=== PATIENT | male | born 1960 | race Caucasian/White ===

== ENCOUNTER 2025-01-07 01:29 | Inpatient (IN) | payer MEDICAID, SELFPAY ==
[2025-01-07] VITALS (26 sets, daily range): BP systolic 116–154; BP diastolic 68–95; PULSE 65–89; RESP 14–99; TEMP 36.3–37.1; O2SAT 89–100; BMI 23.5
--- NOTE | 2025-01-07 01:36 | PC.NURSE ---
FAMILY = AMINAH [phone]
--- NOTE | 2025-01-07 02:21 | XR_ITS ---
Examination: PA chest single view TECHNIQUE: Upright PA chest single view Date and time: January 07, 2025 0230 hours INDICATIONS: Nausea vomiting today. FINDINGS: No aspiration pneumonia Normal heart size No pulmonary edema. The osseous structures are intact IMPRESSION: Negative for aspiration pneumonia
--- NOTE | 2025-01-07 02:21 | EKG_ITS ---
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
--- NOTE | 2025-01-07 02:21 | XR_ITS ---
Examination: CT brain head without contrast. 2-D sagittal coronal reconstructions Date and time of exam:January 07, 2025, 0252 hours INDICATIONS: Vomiting nausea today with headache CTDI: vol (mGy):47.4 DLP: (mGycm):942. Technique: Multiple CT axial sections of the brain have been obtained, 5 mm slice thickness. Contrast has not been administered. 2-D sagittal, coronal reconstructions have been obtained Low dose protocols were performed. One or more of the following dose reduction techniques were used; automated exposure control, adjustment of the mA and/or KV according to patient size, use of iterative reconstruction technique. Findings: No significant ventricular enlargement. Intra-axial or extra-axial hemorrhage density is not seen. No mass effect or midline shift Basal cisterns are not remarkable. Fourth ventricle is midline. Cranial vault intact. Impression: Negative for acute hemorrhage, mass effect or midline shift Mild chronic ethmoid sinusitis and maxillary sinusitis
--- NOTE | 2025-01-07 02:22 | PD.EDRME ---
Rapid Medical Screening Exam RME Arrival date/time: 01/07/25 01:29 64M with unknown PMH presents to ED with N/V and reduced intake. Patient does not know why he's here and is not responding to questions. Patient is covered in vomitus. Chief Complaint: Nausea/Vomiting/Diarrhea Vital signs: Vital Signs Temperature 98.4 F 01/07/25 02:13 Pulse Rate 79 01/07/25 02:13 Respiratory Rate 18 01/07/25 02:13 Blood Pressure 153/85 H 01/07/25 02:13 Pulse Oximetry (%) 97 01/07/25 02:13 Oxygen Delivery Method Room Air 01/07/25 02:13
[2025-01-07] MEDS: ONDANSETRON INJ 2 MG/ML INJ 2 ML 4 MG IV (03:04)
--- NOTE | 2025-01-07 03:20 | PRELIM_ITS ---
CT scan of the head without intravenous contrast (axial sections with sagittal and coronal reformats) January 07, 2025 0243 hours Clinical history: N/V Comparison: No prior study is available for comparison. Findings: There is no evidence of intracranial hemorrhage, mass effect or midline shift. There are periventricular white matter hypodensities, compatible with chronic small vessel ischemia. There is mild volume loss. The calvarium is unremarkable. There are small retention cysts or polyps in bilateral maxillary and left ethmoid sinuses. There is mild mucosal thickening in bilateral maxillary sinuses. The mastoid air cells and the other visualized paranasal sinuses are clear. Impression: No evidence of intracranial hemorrhage, mass effect or midline shift. Periventricular chronic small vessel ischemia and volume loss. Other findings as described above. Report Electronically Signed By: Alex Burton 01/07/2025 3:19:38 AM [EST]
[2025-01-07 03:28] LABS: Collection Type, Urine Clean Catch; Squamous Epithelial Cell,Urine 0 /hpf (0-5)
--- NOTE | 2025-01-07 03:28 | PD.EDNV ---
Nausea/Vomit./Diarrhea-RME/HPI General Chief complaint: Nausea/Vomiting/Diarrhea Stated complaint: VOMITING Time Seen by Provider: 01/07/25 03:31 Arrival date/time: 01/07/25 01:29 RME / HPI RME / HPI Narrative: 01/07/25 01:29 64M with unknown PMH presents to ED with N/V and reduced intake. Patient does not know why he's here and is not responding to questions. Patient is covered in vomitus. Dr. Nix?s Main ED Evaluation: 64yo male presents to the ED for N/V. When asked, patient does not know why he is here is not responding to any questions. Per nursing staff, patient was covered in emesis on ED arrival. Full ROS is unobtainable due to the patient not answering any questions. Related Data Allergies Allergy/AdvReac Type Severity Reaction Status Date / Time No Known Allergies Allergy Verified 01/07/25 01:33 Review of Systems Review of Systems ROS Unobtainable: other (unobtainable due to the patient not answering questions) ED Exam Narrative Physical exam: GENERAL APPEARANCE: confused, answers limited questions, well-developed, well-nourished, no acute distress VITALS: All vitals were reviewed and the pulse ox is 100% on room air, which is normal according to my interpretation. HEENT: Normocephalic, atraumatic; pupils equal, round, reactive to light; EOMI; mucous membranes pink, moist; oropharynx clear NECK: Supple LUNGS: CTABL; no wheezes, no rales, no rhonchi HEART: Regular rate, regular rhythm; normal S1, S2; no murmurs ABDOMEN: non distended; normal BS; soft, no tenderness, no guarding, no rebound; no masses, no organomegaly, no hernia BACK: no CVA tenderness EXTREMITIES: atraumatic; no edema NEUROLOGIC: awake, alert, confused; cranial nerves II-XII grossly intact; no focal sensory or motor deficits PSYCHIATRIC: appropriate mood and affect SKIN: warm, dry, normal color; no rashes Course Quality Measures none Orders Category Date Time Status Blood glucose [Bedside Blood Glucose] NOW Care 01/07/25 02:22 Active EKG (ED ONLY) *Do not use* NOW Care 01/07/25 02:21 Completed Insert IV NOW Care 01/07/25 02:[address] head/brain wo con Stat Exams 01/07/25 02:21 Taken EKG (ED Only) Stat Exams 01/07/25 02:21 Draft XR chest 1V portable Stat Exams 01/07/25 02:21 Taken Alcohol, Blood Medical Stat Lab 01/07/25 03:56 Completed CBC Stat Lab 01/07/25 02:58 Completed Comprehensive Metabolic Panel Stat Lab 01/07/25 02:58 Completed Drug Screen,Urine Stat Lab 01/07/25 03:15 Completed Lactate (Lactic Acid) Stat Lab 01/07/25 03:56 Completed Lipase Stat Lab 01/07/25 02:58 Completed Magnesium Stat Lab 01/07/25 02:58 Completed Troponin I Stat Lab 01/07/25 02:58 Completed Urinalysis Stat Lab 01/07/25 03:15 Completed Ondansetron Inj [Zofran Inj] Med 01/07/25 02:23 Discontinued 4 mg IV X1 ONE Vital Signs Vital signs: Vital Signs Temperature 98.4 F 01/07/25 02:13 Pulse Rate 79 01/07/25 02:13 Respiratory Rate 18 01/07/25 02:13 Blood Pressure 153/85 H 01/07/25 02:13 Pulse Oximetry (%) 97 01/07/25 02:13 Oxygen Delivery Method Room Air 01/07/25 02:13 Nausea/Vomiting/Diarrhea MDM Narrative MDM Narrative:: Scribe Attestation: 01/07/25 Joaquina Rodríguez am scribing for and in the presence of Dr. Nix. Patient data External records reviewed:: [facility] previous records (Per chart review, patient has no previous ED visits or admissions to this facility.) Clinical information provided by:: none (nursing staff) Social determinants that could affect healthcare access:: none Patient has the following chronic illnesses:: unknown How is presenting disease/condition affected by chronic disease/condition?: no chronic disease Evaluation data The following diagnostics were reviewed and interpreted by me:: lab results, radiology exam(s) and EKG tracing(s) Lab and/or radiology exams considered but not ordered:: none Interpretation Summary: WBC 13.5, Sodium 112, Chloride 80, Magnesium 0.9, Troponin normal, UA unremarkable, UDS negative. CXR shows left upper lobe infiltrate, no cardiomegaly, no pneumothorax, according to my interpretation. EKG done at 0227, sinus rhythm, rate of 76, artifact, Q waves in anterior leads, poor R wave progression, no acute ischemic changes, according to my interpretation. Telerad Preliminary Report Draft Patient: JAMAR COLLINS Record#: [id number] Birthdate: 1960 Age/Sex: 64 / M Location: [facility] Attending Dr: Ordering Physician: Date of Service: Procedure(s): Accession Number(s): cc: ~ CT scan of the head without intravenous contrast (axial sections with sagittal and coronal reformats) January 07, 2025 0243 hours Clinical history: N/V Comparison: No prior study is available for comparison. Findings: There is no evidence of intracranial hemorrhage, mass effect or midline shift. There are periventricular white matter hypodensities, compatible with chronic small vessel ischemia. There is mild volume loss. The calvarium is unremarkable. There are small retention cysts or polyps in bilateral maxillary and left ethmoid sinuses. There is mild mucosal thickening in bilateral maxillary sinuses. The mastoid air cells and the other visualized paranasal sinuses are clear. Impression: No evidence of intracranial hemorrhage, mass effect or midline shift. Periventricular chronic small vessel ischemia and volume loss. Other findings as described above. Report Electronically Signed By: Alex Burton 01/07/2025 3:19:38 AM Medications / Prescriptions Medications / Prescriptions considered but not ordered:: none Medication administrations:: Medication Administration History Discontinued Medications Ondansetron HCl (Ondansetron Inj 2 Mg/Ml Inj 2 Ml) 4 mg IV X1 ONE; Protocol Stop: 01/07/25 02:24 Last Admin: 01/07/25 03:04 Dose: 4 mg Documented By: KRISTINA see above Consultations Consultation(s) initiated? (list below): Yes Consultation #1 (Physician, Specialty, Details): Discussed case with Dr. Juarez, ICU resident from Hospitalist service regarding admission. Discussed patients ED course, exam findings, labs, and radiology results. The Hospitalist agrees to accept the patient for admission. Time: 04:23 Diagnosis Nausea Differential Diagnosis: dehydration and other (CVA, TIA, metabolic encephalopathy) Most likely diagnosis given after review of the tests above:: hyponatremia, AMS, hypomagnesemia, vomiting Admission Indicated Admission indicated?: indicated Admission Request Was there a request for admission?: Yes Admission Attestation Admission request attestation: Discussed case with [] from Hospitalist service regarding admission. Discussed patients ED course, exam findings, labs, and radiology results. The Hospitalist [agrees,declines] to accept the patient for admission. Disposition Plan Disposition Plan: Admit Critical Care Time Critical Care Time Critical Care Time: Yes Total Critical Care Time (min.): 35 Attestation: The high probability of sudden, clinically significant deterioration in the patient?s condition required the highest level of my preparedness to intervene urgently. The services I provided to this patient were to treat and/or prevent clinically significant deterioration. Services included the following: chart data review, reviewing nursing notes and/or old charts, documentation time, marketing consultant collaboration regarding findings and treatment options, medication orders and management, direct patient care, vital sign assessments and ordering, interpreting and reviewing diagnostic studies and lab tests. Aggregate critical care time includes only time during which I was engaged in work directly related to the patient?s care, as described above, whether at bedside or elsewhere in the Emergency Department. It did not include time spent performing other reported procedures or the services of residents, students, nurses or physician assistants. Discharge Plan Plan Patient Disposition: Admit Acute Care w/in Hospital Problem List Clinical Impression: AMS (altered mental status), Hyponatremia, Hypomagnesemia, Vomiting Patient/Caregiver Discharge Instructions Print Language: Maori Stand Alone Forms: Leann Award Info., Patient Portal Info Letter
[2025-01-07 03:40] LABS: Bilirubin,Urine Negative (Negative); Blood,Urine Negative (Negative); Clarity,Urine Clear (Clear/Hazy); Color,Urine Lt-Yellow (Lt Yel-Yel); Glucose, Urine 4+ (Negative); Ketones,Urine 1+ (Negative); Leukocyte Esterase,Urine Negative (Negative); Nitrite,Urine Negative (Negative); PH,Urine 6.5 (5.0-7.0); Protein,Urine Negative (Neg - Trace); RBC,Urine 2 /hpf (0-3); Specific Gravity,Urine 1.009 (1.001-1.035); Urobilinogen,Urine Negative mg/dL (0.0-1.0); WBC,Urine < 1 /hpf (0-5)
[2025-01-07 03:45] LABS: Alanine Aminotransferase 16 U/L (10-49); Albumin, Serum 4.3 gm/dL (3.4-4.8); Albumin/Globulin Ratio 1.9 (1.2-2.2); Alkaline Phosphatase 52 U/L (46-116); Anion Gap 12 (7-16); Aspartate Amino Transferase 23 U/L (0-34); BUN/Creatinine Ratio 6 Ratio (12-20); Bilirubin,Total 1.8 mg/dL (0.3-1.2); Blood Urea Nitrogen 7 mg/dL (9-23); Calcium 8.8 mg/dL (8.3-10.6); Calcium (Corrected) 8.8 mg/dL (8.5-10.1); Carbon Dioxide 20.5 mMol/L (20.0-31.0); Chloride 80 mMol/L (98-107); Creatinine (Component) 1.1 mg/dL (0.6-1.3); Estimated Creatinine Clearance 65.1 mL/min (>60); Globulin 2.3 gm/dL (2.3-3.5); Glucose 111 mg/dL (74-106); Lipase 30 U/L (12-53); Osmolality,Calculated 226 (275-295); Potassium 4.0 mMol/L (3.4-5.1); Total Protein 6.6 gm/dL (5.7-8.2); Troponin I < 0.020 ng/mL (0.0-0.045); eGFR > 60 See Note
[2025-01-07 03:47] LABS: Amphetamine/Methamp Scrn,U Negative (Negative); Barbiturate Screen,Urine Negative (Negative); Benzodiazepines Screen,Urine Negative (Negative); Benzoylecgonine Screen, Ur Negative (Negative); Fentanyl Screen,Urine Negative (Negative); Opiate Screen,Urine Negative (Negative); THC Screen,Urine Negative (Negative)
[2025-01-07 03:59] LABS: Magnesium 0.9 mg/dL (1.6-2.6); Sodium 112 mMol/L (136-145)
[2025-01-07 04:07] LABS: Lactate (Lactic Acid) 1.4 mMol/L (0.4-2.0)
[2025-01-07 04:23] LABS: Basophils # (Auto) 0.0 Thou/mm3 (0.0-0.2); Basophils % (Auto) 0 % (0-2.5); Eosinophils # (Auto) 0.1 Thou/mm3 (0.0-0.5); Eosinophils % (Auto) 1 % (0-10); Hematocrit 37.3 % (41.0-53.0); Hemoglobin 14.1 g/dL (13.5-16.0); Immature Granulocytes Auto 0.08 Thou/mm3 (0.00-0.00); Lymphocytes # (Auto) 1.9 Thou/mm3 (1.0-4.8); Lymphocytes % (Auto) 14 % (10-50); Mean Corpuscular HGB Conc 37.8 g/dl (31.0-37.0); Mean Corpuscular Hemoglobin 34.1 pg (25.0-35.0); Mean Corpuscular Volume 90 fL (80-100); Monocytes # (Auto) 0.7 Thou/mm3 (0.0-0.8); Monocytes % (Auto) 5 % (0-12); Neutrophils # (Auto) 10.7 Thou/mm3 (1.8-7.7); Neutrophils % (Auto) 79 % (37-80); Nucleated Red Blood Cell # 0.00 Thou/mm3 (0.00-0.00); Nucleated Red Blood Cell % 0 /100 WBC (0); Platelet Count 219 Thou/mm3 (140-440); RDW Standard Deviation 40.4 fL (35.1-43.9); Red Blood Count 4.13 Miln/mm3 (4.50-5.90); White Blood Count 13.5 Thou/mm3 (3.8-10.6)
[2025-01-07 04:48] LABS: Alcohol, Blood Medical < 3.0 mg/dL (0-10.0)
--- NOTE | 2025-01-07 04:59 | XR_ITS ---
Examination: Abdomen sonogram, Limited Date and time of exam: January 07, 2025 0842 hours INDICATIONS: Elevated total bilirubin on laboratory examination today Technique: Real-time roa scale transabdominal sonographic images of the upper abdomen obtained. Findings: Normal gallbladder. Normal common bile duct 0.3 cm Pancreatic head 2.3 cm Liver 16.4 cm no liver lesions Normal hepatopedal portal venous flow Patent IVC IMPRESSION: Normal gallbladder Normal common bile duct
--- NOTE | 2025-01-07 05:11 | XR_ITS ---
Examination: Abdomen AP single view Technique: AP portable supine abdomen, single view Exam date and time: 2024, 0515 hours INDICATIONS: Nausea vomiting and elevated bilirubin on laboratory examination today. FINDINGS: Moderate stool throughout the colon. Moderately air distended stomach No free air The osseous structures are intact Impression : Moderate stool throughout the colon
--- NOTE | 2025-01-07 05:12 | PD.RESHP ---
Documentation for date of: 01/07/25 [facility] History of Present Illness Chief complaint: vomiting History of present illness: Patient is 64 years old male with unknown past medical history presented to the ED due to nausea and vomiting. Patient was brought by unknown person and is very confused and nonverbal, no other information is available. Per emergency room note patient presented covered with vomitus, was confused and nonverbal since initial presentation. He is minimally verbal and responds yes or no to some questions. Patient is able to tell his name but otherwise is disoriented. He appears to be well-groomed and does not appear to be homeless. On admission his blood pressure 153/85, pulse 79, respirations 18, temperature 98.4 ?F, oxygen saturation 97% on room air initial labs showed WBC 13.5, sodium 112, potassium 4, chloride 80, creatinine 1.1 with unknown baseline, glucose 111, calculated osmolarity 226, lactic acid 1.4, magnesium 0.9, total bilirubin 1.8, troponin negative, lipase 30. Urinalysis showed glucose 4+, ketones 1+. Toxicology Is Negative. Head CT showed periventricular chronic small vessel ischemia and volume loss, no mass effect or hemorrhage. EKG showed sinus rhythm. Chest x-ray pending. He was given Zofran x 1 in the ED. Patient was admitted to ICU for further management of severe symptomatic hyponatremia. PMH: unknown. PSH: unknown. SH: unknown. FH: unknown. Allergies: unknown. Medications: unknown. Review of Systems Review of Systems ROS Unobtainable: unobtainable due to mental status Exam Vital Signs Temp Pulse Resp BP Pulse Ox O2 Del Method 97.3 F 69 22 H 137/70 H 99 Room Air 01/07/25 05:00 01/07/25 05:00 01/07/25 05:00 01/07/25 05:00 01/07/25 05:00 01/07/25 05:00 Narrative Exam Gen: Well-developed and well-nourished confused male. HEENT: NCAT, PERRLA, EOMI, MMM, anicteric conjunctivae. CVS: normal S1 and S2. RRR. No M/R/G. Resp: Decreased breath sounds B/L bases. No rhonchi, rales, crackles or wheezing. Abd: soft, non-tender, non-distended. BS+ in all 4 quadrants. Hiccups noted. MSK: Able to move all 4 extremities. Trace pitting edema BLE. Skin appears pale. Neuro: Limited exam due to mental status. Results: Labs 01/07/25 02:58 01/07/25 02:58 Labs: Short CBC 01/07/25 Range/Units 02:58 WBC 13.5 H (3.8-10.6) Thou/mm3 Hgb 14.1 (13.5-16.0) g/dL Hct 37.3 L (41.0-53.0) % Plt Count 219 (140-440) Thou/mm3 BMP 01/07/25 02:58 Sodium 112 L* Potassium 4.0 Chloride 80 L Carbon Dioxide 20.5 BUN 7 L Creatinine 1.1 Glucose 111 H Calcium 8.8 Cardiac Enzymes 01/07/25 Range/Units 02:58 Troponin I < 0.020 (0.0-0.045) ng/mL Liver Function 01/07/25 Range/Units 02:58 Total Bilirubin 1.8 H (0.3-1.2) mg/dL AST 23 (0-34) U/L ALT 16 (10-49) U/L Alkaline Phosphatase 52 (46-116) U/L Albumin 4.3 (3.4-4.8) gm/dL Urine 01/07/25 Range/Units 03:15 Urine Color Lt-Yellow (Lt Yel-Yel) Urine Clarity Clear (Clear/Hazy) Urine pH 6.5 (5.0-7.0) Ur Specific Mccloud 1.009 (1.001-1.035) Urine Protein Negative (Neg - Trace) Urine Glucose (UA) 4+ A (Negative) Quality Measures Quality Measures VTE prophylaxis Medications Home Medications and Allergies Home Medications ?Medication ?Instructions ?Recorded ?Confirmed ?Type atorvastatin 20 mg tablet 20 mg PO .QD 01/07/25 01/07/25 History dapagliflozin propanediol 10 mg 10 mg PO .QD 01/07/25 01/07/25 History tablet (Farxiga) ferrous sulfate 325 mg (65 mg 325 mg PO .QOD 01/07/25 01/07/25 History iron) tablet (FeroSul) finasteride 5 mg tablet 5 mg PO .QOD 01/07/25 01/07/25 History finerenone 10 mg tablet (Kerendia) 10 mg PO .QOD 01/07/25 01/07/25 History lisinopril 20 mg tablet 20 mg PO .QD 01/07/25 01/07/25 History metformin 500 mg tablet 500 mg PO .COMPLEX 01/07/25 01/07/25 History olanzapine 10 mg tablet 10 mg PO HS 01/07/25 01/07/25 History oxybutynin chloride 2.5 mg tablet 2.5 mg PO BID 01/07/25 01/07/25 History tamsulosin 0.4 mg capsule 0.4 mg PO Q24H 01/07/25 01/07/25 History Allergies Allergy/AdvReac Type Severity Reaction Status Date / Time No Known Allergies Allergy Verified 01/07/25 01:33 Visit Medications Acetaminophen (Acetaminophen Supp 650 Mg Supp) 650 mg NH Q6HR PRN PRN Reason: [id number] Stop: 02/06/25 04:54 Heparin Sodium (Porcine) (Heparin Sod Inj 5000 Unit/Ml Vial) 5,000 unit SC Q12HR ON LICENSE OF [facility] Stop: 01/21/25 08:59 Magnesium Sulfate (Magnesium Sulfate Ivpb) 4 gm in 50 mls @ 12.5 mls/hr IV X1 ONE Stop: 01/07/25 08:57 Sodium Chloride 500 ml/ IV (Miscellaneous Supplies) 500 mls @ 30 mls/hr IV X1 ONE Stop: 01/07/25 21:34 Ceftriaxone Sodium/Dextrose (Rocephin/D5w 1gm Iv Premix) 1 gm in 50 mls @ 100 mls/hr IV QDAY LEIGAH Stop: 01/14/25 05:04 Metronidazole (Flagyl 500 Mg Iv) 500 mg in 100 mls @ 200 mls/hr IV Q8HR LEIGHA Stop: 01/14/25 05:04 Metronidazole (Flagyl 500 Mg Iv) 500 mg in 100 mls @ 200 mls/hr IV X1 ONE Stop: 01/07/25 05:44 Ondansetron HCl (Ondansetron Inj 2 Mg/Ml Inj 2 Ml) 4 mg IVP Q6H PRN; Protocol PRN Reason: NAUSEA OR VOMITING Stop: 02/06/25 04:54 Discontinued Medications Ondansetron HCl (Ondansetron Inj 2 Mg/Ml Inj 2 Ml) 4 mg IV X1 ONE; Protocol Stop: 01/07/25 02:24 Last Admin: 01/07/25 03:04 Dose: 4 mg Assessment & Plan Plan Patient is 64 years old male with unknown past medical history presented to the ED due to nausea and vomiting, found to have sodium 112, and was admitted to ICU for further management of severe symptomatic hyponatremia. Neuro: #Acute encephalopathy. Patient presented with altered mental status and significant confusion, baseline is unknown as no medical history is available. No visible trauma to his head. CT scan of the head showed periventricular chronic small vessel ischemia and volume loss, no mass effect or hemorrhage. At this moment his encephalopathy will be treated as secondary to severe hyponatremia. Plan: -Neurochecks every hour. -Continue following sodium. Cardiovascular: No active problem, unknown medical history. Respiratory: No active problem, unknown medical history. Gastrointestinal: #Nausea and vomiting, controlled. Patient presented to the ED covered with vomitus, was given Zofran x 1 IV with resolution of symptoms. Plan: -Zofran as needed ordered. -Aspiration precautions. #Elevated total bilirubin. On admission total bilirubin 1.8, patient does not endorse abdominal pain and abdomen is nontender on physical exam. Other LFTs are within normal limit. Medical history is unknown. Plan: -Direct bilirubin ordered. -Liver ultrasound and KUB ordered. Renal: #Severe symptomatic hypoosmolar hypochloremic hyponatremia of unknown duration. Patient presented with sodium 112, potassium 4, chloride 80, calculated osmolarity 226. Unknown duration of confusion, no prior labs on file. Will treat him as chronic symptomatic hyponatremia. Plan: -Started on hypertonic saline 3% 30 cc/h with goal to achieve 24 hours increase in serum sodium of 4 to 6 mEq. -Urine electrolytes ordered. -Nephrology consult ordered. -Sodium check every 3 hours. #Severe hypomagnesemia. On admission magnesium 0.9. Plan: -Ordered 4 g of magnesium IV. Endocrine: No active problem, unknown medical history. Infectious Disease: #Concern for possible aspiration. Patient presented to the ED covered in emesis, his WBCs were 13.5, chest x-ray pending. Plan: -Blood cultures taken. -Started on ceftriaxone and metronidazole empirically. Hematology/Oncology: #Leukocytosis. As above, follow-up with daily CBC. Diet: NPO. DVT prophylaxis: Heparin. GI prophylaxis: Famotidine. Code status: FULL CODE (baseline). Disposition: ICU. Plan of care discussed with attending Dr. Robles. Miguel Juarez MD, PGY 3. Disclaimer: This note was dictated by speech recognition. Minor errors in cardiac nurse specialist may be present due to voice recognition software. Attending Provider Attestation/Addendum I attest that I was physically present for the evaluation, physical examination, lab and imaging review of the patient with the residents. I discussed the case with the residents and agree with the findings and plans of care as documented above. After examination of the patient and review of the clinical data I feel that this patient needs admission to the hospital for further treatment/evaluation. Patient is a 64 years old male with unknown past medical history, was brought in to the ED with complaint of nausea and vomiting. Patient is unable to provide any history, no family or friend at bedside to provide information. As per ED, patient was covered with vomitus on presentation. At bedside, he is alert and awake, but confused only able to answer simple questions and follows simple commands both inconsistently. He is unable to answer any orientation question. GCS is 14. Abdomen is soft, no grimacing or tenderness noted. He is moving all his limbs. In the ED, found to have blood pressure of 153/85, rest of the vitals were within normal limits. Patient is able to protect his airway. WBC count is 13.5, sodium 112, chloride 80, osmolality 226, magnesium 0.9, bilirubin 1.8. Urinalysis showed 4+ glucose, 1+ ketones. Toxicology is negative. EKG shows sinus rhythm. Chest x-ray shows possible left-sided infiltrate. Head CT was done, preliminary reading shows no acute intracranial bleeding, mass effect or midline shift. Only shows periventricular chronic small vessel ischemia and volume loss. We will admit the patient for management of acute encephalopathy, likely secondary to severe symptomatic hyponatremia. We will start him on hypertonic saline with every 3 hours sodium checks, frequent neurochecks. We will obtain nephrology consult. We will keep patient n.p.o. for now until he passes swallow evaluation. Since patient had vomiting while confused, concern for aspiration, we will start him on IV Rocephin and metronidazole. Noted to have mild elevation in bilirubin, 1.8, does not have abdominal tenderness on exam, we will follow-up with liver panel and will obtain liver ultrasound. We will also obtain x-ray KUB to further investigate his causes for vomiting. Repleted 4 g of magnesium. Total time spent in critical care of the patient: 37 minutes Danay Robles MD
[2025-01-07] MEDS: Magnesium Sulfate 4 GM Ivpb 4 GM/50 ML BAG IV (05:24)
[2025-01-07] MEDS: cefTRIAXone/D5w 1gm IV premix 1 GM/50 ML BAG IV (05:24)
[2025-01-07] MEDS: SODIUM CHLORIDE 3%(Hypertonic) 500 ML in PRE-MIXED 1 BAG 30 ML IV ×2 (05:25→09:01)
[2025-01-07] MEDS: metroNIDAZOLE/NS 500 MG IVPB 500 MG/100 ML BAG 200 MG IV (05:40)
[2025-01-07 05:41] LABS: Base Excess, Venous -1 (-3-3); O2 Saturation, Venous 100 % (96-97); PCO2, Venous 27 mmHg (36-56); PO2, Venous 124 mmHg (15-58); pH, Venous 7.49 (7.33-7.66)
[2025-01-07 05:52] LABS: Beta Hydroxybutyrate 1.2 mmol/L (<0.6)
[2025-01-07 05:54] LABS: Chloride,Urine Random 49.6 mMol/L (55.0-125.0); Creatinine,Random Urine 43 mg/dL (30-125); Potassium,Urine Random 27 mMol/L (12-62); Protein Total, Random Urine 8 mg/dL (1-14); Sodium,Urine Random 47.3 mMol/L (20.0-110.0)
[2025-01-07 05:56] LABS: Basophils # (Auto) 0.0 Thou/mm3 (0.0-0.2); Basophils % (Auto) 0 % (0-2.5); Eosinophils # (Auto) 0.1 Thou/mm3 (0.0-0.5); Eosinophils % (Auto) 1 % (0-10); Hematocrit 33.9 % (41.0-53.0); Hemoglobin 13.0 g/dL (13.5-16.0); Immature Granulocytes Auto 0.10 Thou/mm3 (0.00-0.00); Lymphocytes # (Auto) 1.5 Thou/mm3 (1.0-4.8); Lymphocytes % (Auto) 12 % (10-50); Mean Corpuscular HGB Conc 38.3 g/dl (31.0-37.0); Mean Corpuscular Hemoglobin 34.0 pg (25.0-35.0); Mean Corpuscular Volume 89 fL (80-100); Monocytes # (Auto) 0.6 Thou/mm3 (0.0-0.8); Monocytes % (Auto) 5 % (0-12); Neutrophils # (Auto) 9.8 Thou/mm3 (1.8-7.7); Neutrophils % (Auto) 82 % (37-80); Nucleated Red Blood Cell # 0.00 Thou/mm3 (0.00-0.00); Nucleated Red Blood Cell % 0 /100 WBC (0); Platelet Count 218 Thou/mm3 (140-440); RDW Standard Deviation 38.2 fL (35.1-43.9); Red Blood Count 3.82 Miln/mm3 (4.50-5.90); White Blood Count 12.0 Thou/mm3 (3.8-10.6)
--- NOTE | 2025-01-07 05:58 | PC.NURSE ---
SPOKE TO AMINAH VIA TELEPHONE, WHO STATES SHE IS THE PTS COUSIN. PER AMINAH PT IS NORMALLY ABLE TO COMPLETE ALL ADLS, IS A/OX3, GCS15. PER AMINAH PT BEGAN TO DEVELOP N/V AND LOW APPETITE SINCE YEST MORNING. AMINAH STATED PT THEN APPEARED CONFUSED TO HER LATER THAT EVENING AND THAT IS WHEN SHE DECIDED TO BRING HIM INTO THE ER. PT PRESENTED TO TO ER CONFUSED. UNABLE TO ANSWER ANY QUESTIONS, BUT FOLLOWS COMMANDS. PT PRESENTS A/OX1 GCS 14. ALL RESPIRATIONS EVEN AND UNLABORED. VS. PT CARE GOING
--- NOTE | 2025-01-07 06:08 | EVENTNT_ITS ---
Documentation for date of: 01/07/25 Event Note Event Note: Hospital received a call from a person named Radha who claimed to be his cousin. She reports that she drove him to the emergency room earlier today. She reports he lives with her. She said that patient started becoming very slow over the last several days and became very confused yesterday morning, also developed nausea and vomiting. He is usually alert and oriented, ambulates himself. She reported that he has some kidney problems and is followed by Dr. Driver who recommended decrease sodium and sugar intake which was followed strictly. Patient has history of hypertension and takes 1 unknown medication, diabetes and takes metformin and Farxiga, and GERD and is taking omeprazole. He is active tobacco smoker, does not use drugs or drink alcohol. Her information was added to file. She also denied him being recently sick, denied fever, chills. His hospital chart was found and was merged. Plan of care discussed with attending Dr. Robles. Miguel Juarez MD, PGY 3. Disclaimer: This note was dictated by speech recognition. Minor errors in cook fish and chips may be present due to voice recognition software.
[2025-01-07 06:12] LABS: Glucose Estimated Average 114 mg/dL (80-131); Hemoglobin A1C 5.6 % Hgb (4.8-6.0)
[2025-01-07 06:13] LABS: Alanine Aminotransferase 13 U/L (10-49); Albumin, Serum 3.8 gm/dL (3.4-4.8); Albumin/Globulin Ratio 2.4 (1.2-2.2); Alkaline Phosphatase 45 U/L (46-116); Anion Gap 11 (7-16); Aspartate Amino Transferase 25 U/L (0-34); BUN/Creatinine Ratio 7 Ratio (12-20); Bilirubin,Direct 0.6 mg/dL (0.0-0.3); Bilirubin,Total 1.8 mg/dL (0.3-1.2); Blood Urea Nitrogen 6 mg/dL (9-23); Calcium 8.7 mg/dL (8.3-10.6); Calcium (Corrected) 8.9 mg/dL (8.5-10.1); Carbon Dioxide 19.4 mMol/L (20.0-31.0); Chloride 80 mMol/L (98-107); Creatinine (Component) 0.9 mg/dL (0.6-1.3); Estimated Creatinine Clearance 79.6 mL/min (>60); Globulin 1.6 gm/dL (2.3-3.5); Glucose 91 mg/dL (74-106); Magnesium 1.3 mg/dL (1.6-2.6); Osmolality,Calculated 221 (275-295); Phosphorous 2.6 mg/dL (2.4-5.1); Potassium 3.8 mMol/L (3.4-5.1); Thyroid Stimulating Hormone 1.17 uIU/mL (0.55-4.78); Total Protein 5.4 gm/dL (5.7-8.2); eGFR > 60 See Note
[2025-01-07 06:14] LABS: Sodium 110 mMol/L (136-145)
[2025-01-07] MEDS: SODIUM CHLORIDE 3%(Hypertonic) 500 ML in PRE-MIXED 1 BAG 40 ML IV (07:55)
[2025-01-07 08:37] LABS: Uric Acid 2.8 mg/dL (3.7-9.2)
[2025-01-07 08:39] LABS: Sodium 114 mMol/L (136-145)
--- NOTE | 2025-01-07 08:40 | XR_ITS ---
Examination: AP chest single view Technique one AP portable upright chest single view Date and time: January 07, 2025 0851 hours INDICATIONS: Post orogastric tube placement FINDINGS: Orogastric tube tip in the stomach satisfactory position. Normal heart size No lobar pneumonia IMPRESSION: Orogastric tube in the stomach satisfactory position
[2025-01-07 09:25] LABS: OBS Card Expiration Date 12/26; OBS Card Lot # 20152; OBS Developer Expiration Date 06/26; OBS Developer Lot # 75027G; OBS Performed By OVERJ; OBS QC OK? Yes; Occult Blood, Stool Positive (Negative)
--- NOTE | 2025-01-07 10:09 | XR_ITS ---
Examination: CT chest, without intravenous contrast. Sagittal and coronal 2-D reconstructions. Exam date and time: January 07, 2025 1427 hours INDICATIONS: Chest CT April 25, 2023 5 mm stellate pulmonary nodule right middle lobe CTDI:vol (mGy) 9.29 DLP: (mGycm) 338 Technique: Multiple 3.0 mm axial sections of the chest to been obtained. Bone and lung density settings are obtained. Sagittal and coronal 2-D reconstructions have been obtained. Low dose protocols were performed. One or more of the following dose reduction techniques were used; automated exposure control, adjustment of the mA and/or KV according to patient size, use of iterative reconstruction technique. Findings: Fluid distended esophagus No thoracic degenerative aneurysm dilatation. Pulmonary artery segments are not enlarged. No current pulmonary nodules No pneumonia or pulmonary edema Orogastric tube in the stomach Kidneys partially visualized no hydronephrosis Contracted gallbladder Severe osteopenia with kyphosis dorsal spine IMPRESSION: No current pulmonary nodules identified Esophagus is fluid distended
[2025-01-07] MEDS: HEPARIN SOD INJ 5000 UNIT/ML VIAL SC (10:16)
[2025-01-07] MEDS: FAMOTIDINE INJ 10 MG/ML VIAL 2 ML 20 MG IVP (10:18)
--- NOTE | 2025-01-07 10:44 | ESCONSULT_ITS ---
HPI Data of Consult Consult date: 01/07/25 Requesting Physician: Danay Robles MD Admitting Provider: Danay Robles MD Attending Provider: Danay Robles MD Primary Care Provider: Physician No Primary/Family Consult Narrative Reason for consult: hyponatremia History of present illness: Juan M Jasso is a 64 year old male with past medical history, per chart review, of HTN, GERD, BPH, T2DM, depression presents with of vomiting and confusion. Patient was found to have emesis over himself on arrival to ED. Patient is not able to answer questions appropriately as to why he is here or his history, despite being able to answer some orienting questions regarding person/place/time. Patient takes some time to answer. Later in the morning, reported cousin named Radha called and told the hospital that he lives with her and has been having worsening confusion over the last several days; said he started vomiting yesterday morning. Per Radha, his baseline mental status is usaully a&o x3 and ambulates himself. She reported he sees disintegrator feeder Dr. Driver who recommended decrease sodium and sugar intake which was followed strictly. She also denied him being recently sick, denied fever, chills. Home medication: lisinopril, metformin, farxiga, omeprazole. Surgical Hx: Abdominal Surgery Social Hx: tobacco smoker, denies drugs or alcohol On admission his blood pressure 153/85, pulse 79, respirations 18, temperature 98.4 ?F, oxygen saturation 97% on room air initial labs showed WBC 13.5, sodium 112, potassium 4, chloride 80, creatinine 1.1 with unknown baseline, glucose 111, calculated osmolarity 226, lactic acid 1.4, magnesium 0.9, total bilirubin 1.8, troponin negative, lipase 30. Urinalysis showed glucose 4+, ketones 1+. Toxicology Is Negative. Head CT showed periventricular chronic small vessel ischemia and volume loss, no mass effect or hemorrhage. EKG showed sinus rhythm. Chest x-ray pending. He was given Zofran x 1 in the ED. Patient was admitted to ICU for further management of severe symptomatic hyponatremia. Nephrology consulted for symptomatic hyponatremia. cc:: cc: Danay Robles MD Review of Systems Review of Systems ROS Unobtainable: unobtainable due to mental status and unobtainable due to medical condition Past Medical History Past Medical History NEUROLOGIC: Negative Neurological Disorders or Seizures CARDIAC: Positive Cardiac Disorders, Hypercholesterolemia and Hypertension; Negative Congestive Heart Failure RESPIRATORY: Negative Chronic Obstructive Pulmonary Disease (COPD) GASTROINTESTINAL: Negative Gastrointestinal Disorders or Gastroesophageal Reflux Disease GENITOURINARY: Positive Genitourinary Disorders and Benign Prostatic Hyperplasia; Negative Renal Disease MUSCULOSKELETAL: Negative Musculoskeletal Disorders ENDOCRINE: Positive Diabetes Mellitus Type 2; Negative Endocrine Disorders or Diabetes Mellitus Type 1 HEMATOLOGIC: Positive Anemia PSYCHO/SOCIAL: Positive Depression OTHER HISTORY: Negative Blood Transfusions Surgical History SURGICAL: Positive Abdominal Surgery Social History SMOKING STATUS: Current every day smoker Past Medical History Comments PMH COMMENT: PMH: DM, HTN, GERD, migraines PSH: Abdominal wall hernia surgery Social history: Current smoker (1 PPD x 50 years); previous methamphetamine use, 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 HEENT: Normocephalic, atraumatic, mildly dry mucous membranes. Heart: Regular rate and rhythm, normal S1 and S2, no murmurs. Lungs: Clear to auscultation with no wheezing or crackles. Abdomen: Soft, nondistended, nontender, positive bowel sounds. ?No guarding or rebound tenderness. Neurologic: A&Ox2, not able to fully examine for neuro deficits, and patient able to move all 4 extremities. Extremities: No edema. Skin: No rash Results Labs 01/09/25 04:14 01/09/25 06:15 Labs: Short CBC 01/07/25 01/07/25 Range/Units 02:58 05:22 WBC 13.5 H 12.0 H (3.8-10.6) Thou/mm3 Hgb 14.1 13.0 L (13.5-16.0) g/dL Hct 37.3 L 33.9 L (41.0-53.0) % Plt Count 219 218 (140-440) Thou/mm3 BMP 01/07/25 01/07/25 01/07/25 02:58 05:22 07:35 Sodium 112 L* 110 L* 114 L* Potassium 4.0 3.8 Chloride 80 L 80 L Carbon Dioxide 20.5 19.4 L BUN 7 L 6 L Creatinine 1.1 0.9 Glucose 111 H 91 Calcium 8.8 8.7 Cardiac Enzymes 01/07/25 Range/Units 02:58 Troponin I < 0.020 (0.0-0.045) ng/mL Liver Function 01/07/25 01/07/25 Range/Units 02:58 05:22 Total Bilirubin 1.8 H 1.8 H (0.3-1.2) mg/dL Direct Bilirubin 0.6 H (0.0-0.3) mg/dL AST 23 25 (0-34) U/L ALT 16 13 (10-49) U/L Alkaline Phosphatase 52 45 L (46-116) U/L Albumin 4.3 3.8 D (3.4-4.8) gm/dL Urine 01/07/25 Range/Units 03:15 Urine Color Lt-Yellow (Lt Yel-Yel) Urine Clarity Clear (Clear/Hazy) Urine pH 6.5 (5.0-7.0) Ur Specific [place] 1.009 (1.001-1.035) Urine Protein Negative (Neg - Trace) Urine Glucose (UA) 4+ A (Negative) ABG Interpretation ABG results: 01/07/25 05:22 VBG pH 7.49 VBG pCO2 27 L VBG pO2 124 H VBG Base Excess -1 Quality Measures Quality Measures VTE prophylaxis Medications Home Medications and Allergies Home Medications ?Medication ?Instructions ?Recorded ?Confirmed ?Type docusate sodium 100 mg tablet 100 mg PO QDAY 01/20/21 01/08/25 History finasteride 5 mg tablet 5 mg PO QDAY 01/20/21 History metformin 500 mg tablet 500 mg PO QDAY 01/20/2112/16 History olanzapine 20 mg tablet 20 mg PO QDAY 01/20/2101/08 History omeprazole 20 mg tablet,delayed 20 mg PO QDAY 01/20/21 01/08/25 History release tamsulosin 0.4 mg capsule 0.4 mg PO QHS 08/10/2101/07 History atorvastatin 20 mg tablet 20 mg PO .QD 01/07/25 History dapagliflozin propanediol 10 mg 10 mg PO .QD 01/07/25 01/07/25 History tablet (Farxiga) ferrous sulfate 325 mg (65 mg 325 mg PO .QOD 01/07/25 01/07/25 History iron) tablet (FeroSul) finasteride 5 mg tablet 5 mg PO .QOD 01/07/25 History finerenone 10 mg tablet (Kerendia) 10 mg PO .QOD 01/0701/07/25 History Held on 01/07/25. Instructions: Doctor's Order lisinopril 20 mg tablet 20 mg PO .QD 01/07/25 History metformin 500 mg tablet 500 mg PO .COMPLEX 01/07/25 01/07/25 History olanzapine 10 mg tablet 10 mg PO HS 01/07/25 5 History oxybutynin chloride 2.5 mg tablet 2.5 mg PO BID 01/07/25 History pantoprazole 40 mg tablet,delayed 40 mg PO QDAY 01/07/25 History release tamsulosin 0.4 mg capsule 0.4 mg PO Q24H 01/07/2512/16 History Allergies Allergy/AdvReac Type Severity Reaction Status Date / Time niacin Allergy Mild Redness of Verified 01/07/25 06:03 Skin Visit Medications Acetaminophen (Acetaminophen Supp 650 Mg Supp) 650 mg OR Q6HR PRN PRN Reason: [id number] Stop: 02/06/25 09:48 Dextrose (Dextrose 50%-Water Inj 50 Ml Syringe) 50 ml IV Q15MIN PRN PRN Reason: BG <50 OR BG <70 & pt unresponsive Stop: 02/06/25 09:47 Dextrose (Dextrose 50%-Water Inj 50 Ml Syringe) 25 ml IV Q15MIN PRN PRN Reason: BG 50-70 responsive npo pt Stop: 02/06/25 09:47 Glucagon (Glucagon Inj 1 Mg Vial) 1 mg IM Q15MIN PRN PRN Reason: BG <70, and no IV access Heparin Sodium (Porcine) (Heparin Sod Inj 5000 Unit/Ml Vial) 5,000 unit SC Q12HR [facility] Stop: 01/21/25 09:59 Last Admin: 01/07/25 10:16 Dose: 5,000 unit Sodium Chloride 500 ml/ IV (Miscellaneous Supplies) 500 mls @ 30 mls/hr IV X1 ONE Stop: 01/08/25 01:39 Last Admin: 01/07/25 09:01 Dose: 30 mls/hr Insulin Human Lispro (Insulin Lispro (Admelog) 1 Unit/0.01 Ml Unit) 0 unit SC AC [facility]; Protocol Stop: 02/06/25 11:29 Ondansetron HCl (Ondansetron Inj 2 Mg/Ml Inj 2 Ml) 4 mg IVP Q6H PRN; Protocol PRN Reason: NAUSEA OR VOMITING Stop: 02/06/25 09:45 Discontinued Medications Acetaminophen (Acetaminophen Supp 650 Mg Supp) 650 mg OR Q6HR PRN PRN Reason: [id number] Stop: 02/06/25 04:54 Dextrose (Dextrose 50%-Water Inj 50 Ml Syringe) 25 ml IV Q15MIN PRN PRN Reason: BG 50-70 responsive npo pt Stop: 02/06/25 06:00 Dextrose (Dextrose 50%-Water Inj 50 Ml Syringe) 50 ml IV Q15MIN PRN PRN Reason: BG <50 OR BG <70 & pt unresponsive Stop: 02/06/25 06:00 Famotidine (Famotidine Inj 10 Mg/Ml Vial 2 Ml) 20 mg IVP QDAY [facility] Stop: 02/06/25 08:59 Famotidine (Famotidine Inj 10 Mg/Ml Vial 2 Ml) 20 mg IVP QDAY [facility] Stop: 02/06/25 09:59 Famotidine (Famotidine Inj 10 Mg/Ml Vial 2 Ml) 20 mg IVP QDAY [facility] Stop: 02/06/25 09:59 Last Admin: 01/07/25 10:18 Dose: 20 mg Glucagon (Glucagon Inj 1 Mg Vial) 1 mg IM Q15MIN PRN PRN Reason: BG <70, and no IV access Heparin Sodium (Porcine) (Heparin Sod Inj 5000 Unit/Ml Vial) 5,000 unit SC Q12HR [facility] Stop: 01/21/25 08:59 Magnesium Sulfate (Magnesium Sulfate Ivpb) 4 gm in 50 mls @ 12.5 mls/hr IV X1 ONE Stop: 01/07/25 08:57 Last Admin: 01/07/25 05:24 Dose: 12.5 mls/hr Sodium Chloride 500 ml/ IV (Miscellaneous Supplies) 500 mls @ 30 mls/hr IV X1 ONE Stop: 01/07/25 21:34 Last Infusion: 01/07/25 10:15 Dose: 0 mls/hr Ceftriaxone Sodium/Dextrose (Rocephin/D5w 1gm Iv Premix) 1 gm in 50 mls @ 100 mls/hr IV QDAY [facility] Stop: 01/14/25 05:04 Last Infusion: 01/07/25 06:08 Dose: Infused Metronidazole (Flagyl 500 Mg Iv) 500 mg in 100 mls @ 200 mls/hr IV Q8HR [facility] Stop: 01/14/25 13:59 Metronidazole (Flagyl 500 Mg Iv) 500 mg in 100 mls @ 200 mls/hr IV X1 ONE Stop: 01/07/25 05:44 Last Infusion: 01/07/25 07:01 Dose: Infused Sodium Chloride 500 ml/ IV (Miscellaneous Supplies) 500 mls @ 40 mls/hr IV X1 ONE Stop: 01/07/25 17:24 Last Admin: 01/07/25 07:55 Dose: 40 mls/hr Insulin Human Lispro (Insulin Lispro (Admelog) 1 Unit/0.01 Ml Unit) 0 unit SC AC [facility]; Protocol Stop: 02/06/25 07:29 Last Admin: 01/07/25 08:50 Dose: Not Given Ondansetron HCl (Ondansetron Inj 2 Mg/Ml Inj 2 Ml) 4 mg IV X1 ONE; Protocol Stop: 01/07/25 02:24 Last Admin: 01/07/25 03:04 Dose: 4 mg Ondansetron HCl (Ondansetron Inj 2 Mg/Ml Inj 2 Ml) 4 mg IVP Q6H PRN; Protocol PRN Reason: NAUSEA OR VOMITING Stop: 02/06/25 04:54 Assessment & Plan Plan Juan M Jasso is a 64 year old male with past medical history, per chart review, of HTN, GERD, BPH, T2DM, depression presents with vomiting and confusion. Neprhology consulted for symptomatic hyponatremia. #symptomatic hypoosmolar hypochloremic hyponatremia Likely pre-renal due to volume loss along with reported hx of strict low sodium diet. Per family member, worsening confusion last several days, vomiting since yesterday. Baseline is reportedly alert/oriented and ambulatory. Reported that he sees disintegrator feeder Dr. Driver who recommended decrease sodium and sugar intake which was followed strictly Patient presented with sodium 112, potassium 4, chloride 80, calculated osmolarity 226. Making good urine Plan: -Give hypertonic saline 3% 30 cc/h with goal to achieve 24 hours increase in serum sodium of 4 to 6 mEq. -Consider desmopressin 2 mcg to prevent over correction; Free water 3 mg/kg/hr drops sodium 1 mEq/hr being another option. -Sodium Check q2 hr. #Acute encephalopathy. #Nausea and vomiting, controlled. #Elevated total bilirubin. #Severe hypomagnesemia. #Concern for possible aspiration. #Leukocytosis. Above managed per primary team Patient plan of care was discussed with the attending physician, Dr. Iglesia Sanders MD PGY-1 Attending Provider Attestation/Addendum Patient seen and examined with resident physician Dr. Sanders. Note reviewed, agree with findings and recommendations. Patient currently seen in ICU. Admitted with severe symptomatic hyponatremia needing 3% hypertonic saline. Suspect hypovolemic hyponatremia in appropriate response of ADH. After 3% hypertonic saline's urine output started to improve. Urine output 2.4 L. Gave 1 dose of desmopressin to prevent overcorrection. Goal is 6 mEq in the next 24 hours rise in serum sodium to avoid osmotic demyelination syndrome. Spoke to ICU team. Thank you Dr. Rae for allowing me to participate in the care of Mr. Jasso
[2025-01-07 10:54] LABS: Sodium 115 mMol/L (136-145)
[2025-01-07 12:11] LABS: Sodium 115 mMol/L (136-145)
[2025-01-07 13:19] LABS: Sodium 114 mMol/L (136-145)
[2025-01-07] MEDS: SODIUM CHLORIDE 3%(Hypertonic) 500 ML in PRE-MIXED 1 BAG 15 ML IV (13:42)
[2025-01-07 14:09] LABS: Sodium 115 mMol/L (136-145)
--- NOTE | 2025-01-07 15:49 | ESPR_ITS ---
<Statement entered by Mika Braxton MD - 01/07/25 17:54> Patient was seen and examined at bedside. I agree on the assessment and plan on this note as documented by resident Chano Ta DO PGY1. Mr. Jasso is a 64-year-old male with past medical history of hyperlipidemia, iron deficiency anemia, BPH, diabetes mellitus, GERD, hypertension, ?CKD and ?Dementia/psych disorder who presented to [facility] emergency department on January 07, 2025 with chief complaint of altered mental status, patient found to have a sodium of 112, was admitted to ICU for close monitoring and controlled correction of hyponatremia with goal of 4-6 in 24 hours. Patient was confused on assessment earlier this morning however mentation has improved significantly, received hypertonic saline, corrected by 3 in 12 hours, we are holding DDAVP and hypertonic saline for now, patient has significant urine output ~around 2 L. Otherwise uric acid obtained the morning low, patient's hyponatremia likely secondary to SIADH. Will continue to monitor sodium every 2 hours and continue to monitor. Does have bilateral tremors, unknown if since baseline or related to hyponatremia, will continue to monitor. Otherwise patient had distended abdomen with no clinical suspicion of SBO, NG tube was inserted for decompression, started on low intermittent suctioning. Patient had 2 episodes of coffee-ground emesis, gastric occult blood positive, started on Protonix 40 twice daily, GI consulted. Patient's magnesium was replaced. Nephrology is following, gastroenterology is following, will continue to monitor patient in intensive care unit with goal sodium correction of 4-6 in 24 hours, will consider DDVAP as needed if overcorrected. Case discussed with attending Mechanical Designer Dr. Kyra MD. Mika Braxton MD PGY-2 Documentation for date of: 01/07/25 Subjective Subjective Interval history: Chief complaint: vomiting History of present illness: Patient is 64 years old male with past medical history of hypertension, type 2 diabetes, GERD, and previous incarceration of 8 years, marijuana use, and distant history of methamphetamine use who presented to the ED due to nausea and vomiting. Patient was brought by niece and is very confused and nonverbal, no other information is available. Per emergency room note patient presented covered with vomitus, was confused and nonverbal since initial presentation. He is minimally verbal and responds yes or no to some questions. Patient is able to tell his name but otherwise is disoriented. He appears to be well-groomed and does not appear to be homeless. On admission his blood pressure 153/85, pulse 79, respirations 18, temperature 98.4 ?F, oxygen saturation 97% on room air initial labs showed WBC 13.5, sodium 112, potassium 4, chloride 80, creatinine 1.1 with unknown baseline, glucose 111, calculated osmolarity 226, lactic acid 1.4, magnesium 0.9, total bilirubin 1.8, troponin negative, lipase 30. Urinalysis showed glucose 4+, ketones 1+. Toxicology Is Negative. Head CT showed periventricular chronic small vessel ischemia and volume loss, no mass effect or hemorrhage. EKG showed sinus rhythm. Chest x-ray pending. He was given Zofran x 1 in the ED. Patient was admitted to ICU for further management of severe symptomatic hyponatremia. Interval history 01/07/2025: Patient admitted to ICU on 3% sodium drip at 30 mL/h. Tracking sodium every hour, titrating sodium infusion appropriately, goal is to correct by increasing Na by 6 mmol/L up to 118 mmol/L over the first 24 hours of admission based on arrival sodium of 112 mmol/L, most recent sodium 116 mmol/L, paused infusion due to high urine output of approximately 125 mL/h. Nephro on board. Pending CT chest. NG tube inserted upon ICU admission. Patient had 2 episodes of coffee-ground emesis since ICU admission. NG tube suctioned 1 L of dark coffee-ground fluid. GI consulted. Exam Vital Signs Temp Pulse Resp BP Pulse Ox O2 Del Method 98.8 F 69 26 H 132/76 H 98 Room Air 01/07/25 12:00 01/07/25 13:00 01/07/25 13:00 01/07/25 13:01/07/25 13:01/07/25 12:00 Narrative Exam General: Awake and alert. Neurologic: GCS 15. Oriented to place, no gross neurological deficit, and patient able to move all 4 extremities. HEENT: Normocephalic, atraumatic, mucous membranes moist. Pupils reactive to light. Heart: Regular rate and rhythm, normal S1 and S2, no murmurs. Lungs: Clear to auscultation bilaterally with no wheezing or crackles. Abdomen: Firm, nondistended, nontender, positive bowel sounds. No guarding or rebound tenderness. Extremities: No edema. 2+ radial and dorsalis pedis pulses bilaterally. Skin: Warm. Dry. No rash or ecchymoses. Objective Labs 01/08/25 04:39 01/08/25 10:10 Labs: Laboratory Results - last 24 hr 01/07/25 01/07/25 01/07/25 02:58 03:15 03:56 WBC 13.5 H RBC 4.13 L Hgb 14.1 Hct 37.3 L MCV 90 MCH 34.1 MCHC 37.8 H RDW Std Deviation 40.4 Plt Count 219 Neut % (Auto) 79 Lymph % (Auto) 14 Gregory % (Auto) 5 Eos % (Auto) 1 Baso % (Auto) 0 Neut # (Auto) 10.7 H Lymph # (Auto) 1.9 Gregory # (Auto) 0.7 Eos # (Auto) 0.1 Baso # (Auto) 0.0 Immature Gran # (Auto) 0.08 H Absolute Nucleated RBC 0.00 Immature Gran % 1 H Nucleated RBC % 0 VBG pH VBG pCO2 VBG pO2 VBG O2 Sat (William) VBG Base Excess Sodium 112 L* Potassium 4.0 Chloride 80 L Carbon Dioxide 20.5 Anion Gap 12 BUN 7 L Creatinine 1.1 Estim Creat Clear Calc 65.1 eGFR > 60 BUN/Creatinine Ratio 6 L Glucose [address] Glu mg/dL Hemoglobin A1c Calculated Osmolality 226 L Lactic Acid 1.4 Uric Acid Calcium 8.8 Corrected Calcium 8.8 Phosphorus Magnesium 0.9 L* Total Bilirubin 1.8 H Direct Bilirubin AST 23 ALT 16 Alkaline Phosphatase 52 Troponin I < 0.020 Total Protein 6.6 Albumin 4.3 Globulin 2.3 Albumin/Globulin Ratio 1.9 Lipase 30 Beta-Hydroxybutyrate/Acetoacetate TSH Ur Collection Type Clean Catch Urine Color Lt-Yellow Urine Clarity Clear Urine pH 6.5 Ur Specific [place] 1.009 Urine Protein Negative Urine Glucose (UA) 4+ A Urine Ketones 1+ A Urine Blood Negative Urine Nitrite Negative Urine Bilirubin Negative Urine Urobilinogen (Auto) Negative Ur Leukocyte Esterase Negative Urine RBC 2 Urine WBC < 1 Ur Squamous Epith Cells 0 Urine Bacteria None Ur Random Creatinine U Random Total Protein Ur Random Sodium Ur Random Potassium Ur Random Chloride Stool Occult Blood Urine Opiates Screen Negative Urine Fentanyl Screen Negative Ur Barbiturates Screen Negative U Amphetamin/Meth Scrn Negative U Benzodiazepines Scrn Negative U Cocaine Metab Screen Negative U Marijuana (THC) Screen Negative Ethyl Alcohol < 3.0 01/07/25 01/07/25 01/07/25 05:17 05:22 07:35 WBC 12.0 H RBC 3.82 L Hgb 13.0 L Hct 33.9 L MCV 89 MCH 34.0 MCHC 38.3 H RDW Std Deviation 38.2 Plt Count 218 Neut % (Auto) 82 H Lymph % (Auto) 12 Gregory % (Auto) 5 Eos % (Auto) 1 Baso % (Auto) 0 Neut # (Auto) 9.8 H Lymph # (Auto) 1.5 Gregory # (Auto) 0.6 Eos # (Auto) 0.1 Baso # (Auto) 0.0 Immature Gran # (Auto) 0.10 H Absolute Nucleated RBC 0.00 Immature Gran % 1 H Nucleated RBC % 0 VBG pH 7.49 VBG pCO2 27 L VBG pO2 124 H VBG O2 Sat (William) 100 H VBG Base Excess -1 Sodium 110 L* 114 L* Potassium 3.8 Chloride 80 L Carbon Dioxide 19.4 L Anion Gap 11 BUN 6 L Creatinine 0.9 Estim Creat Clear Calc 79.6 eGFR > 60 BUN/Creatinine Ratio 7 L Glucose [address] Glu mg/dL 114 Hemoglobin A1c 5.6 Calculated Osmolality 221 L Lactic Acid Uric Acid 2.8 L Calcium 8.7 Corrected Calcium 8.9 Phosphorus 2.6 Magnesium 1.3 L Total Bilirubin 1.8 H Direct Bilirubin 0.6 H AST 25 ALT 13 Alkaline Phosphatase 45 L Troponin I Total Protein 5.4 L Albumin 3.8 D Globulin 1.6 L Albumin/Globulin Ratio 2.4 H Lipase Beta-Hydroxybutyrate/Acetoacetate 1.2 H TSH 1.17 Ur Collection Type Urine Color Urine Clarity Urine pH Ur Specific [place] Urine Protein Urine Glucose (UA) Urine Ketones Urine Blood Urine Nitrite Urine Bilirubin Urine Urobilinogen (Auto) Ur Leukocyte Esterase Urine RBC Urine WBC Ur Squamous Epith Cells Urine Bacteria Ur Random Creatinine 43 U Random Total Protein 8 Ur Random Sodium 47.3 Ur Random Potassium 27 Ur Random Chloride 49.6 L Stool Occult Blood Urine Opiates Screen Urine Fentanyl Screen Ur Barbiturates Screen U Amphetamin/Meth Scrn U Benzodiazepines Scrn U Cocaine Metab Screen U Marijuana (THC) Screen Ethyl Alcohol 01/07/25 01/07/25 01/07/25 08:58 09:55 11:20 WBC RBC Hgb Hct MCV MCH MCHC RDW Std Deviation Plt Count Neut % (Auto) Lymph % (Auto) Gregory % (Auto) Eos % (Auto) Baso % (Auto) Neut # (Auto) Lymph # (Auto) Gregory # (Auto) Eos # (Auto) Baso # (Auto) Immature Gran # (Auto) Absolute Nucleated RBC Immature Gran % Nucleated RBC % VBG pH VBG pCO2 VBG pO2 VBG O2 Sat (William) VBG Base Excess Sodium 115 L* 115 L* Potassium Chloride Carbon Dioxide Anion Gap BUN Creatinine Estim Creat Clear Calc eGFR BUN/Creatinine Ratio Glucose Estimated Ave Glu mg/dL Hemoglobin A1c Calculated Osmolality Lactic Acid Uric Acid Calcium Corrected Calcium Phosphorus Magnesium Total Bilirubin Direct Bilirubin AST ALT Alkaline Phosphatase Troponin I Total Protein Albumin Globulin Albumin/Globulin Ratio Lipase Beta-Hydroxybutyrate/Acetoacetate TSH Ur Collection Type Urine Color Urine Clarity Urine pH Ur Specific [place] Urine Protein Urine Glucose (UA) Urine Ketones Urine Blood Urine Nitrite Urine Bilirubin Urine Urobilinogen (Auto) Ur Leukocyte Esterase Urine RBC Urine WBC Ur Squamous Epith Cells Urine Bacteria Ur Random Creatinine U Random Total Protein Ur Random Sodium Ur Random Potassium Ur Random Chloride Stool Occult Blood Positive A Urine Opiates Screen Urine Fentanyl Screen Ur Barbiturates Screen U Amphetamin/Meth Scrn U Benzodiazepines Scrn U Cocaine Metab Screen U Marijuana (THC) Screen Ethyl Alcohol 01/07/25 01/07/25 12:20 13:45 WBC RBC Hgb Hct MCV MCH MCHC RDW Std Deviation Plt Count Neut % (Auto) Lymph % (Auto) Gregory % (Auto) Eos % (Auto) Baso % (Auto) Neut # (Auto) Lymph # (Auto) Gregory # (Auto) Eos # (Auto) Baso # (Auto) Immature Gran # (Auto) Absolute Nucleated RBC Immature Gran % Nucleated RBC % VBG pH VBG pCO2 VBG pO2 VBG O2 Sat (William) VBG Base Excess Sodium 114 L* 115 L* Potassium Chloride Carbon Dioxide Anion Gap BUN Creatinine Estim Creat Clear Calc eGFR BUN/Creatinine Ratio Glucose Estimated Ave Glu mg/dL Hemoglobin A1c Calculated Osmolality Lactic Acid Uric Acid Calcium Corrected Calcium Phosphorus Magnesium Total Bilirubin Direct Bilirubin AST ALT Alkaline Phosphatase Troponin I Total Protein Albumin Globulin Albumin/Globulin Ratio Lipase Beta-Hydroxybutyrate/Acetoacetate TSH Ur Collection Type Urine Color Urine Clarity Urine pH Ur Specific [place] Urine Protein Urine Glucose (UA) Urine Ketones Urine Blood Urine Nitrite Urine Bilirubin Urine Urobilinogen (Auto) Ur Leukocyte Esterase Urine RBC Urine WBC Ur Squamous Epith Cells Urine Bacteria Ur Random Creatinine U Random Total Protein Ur Random Sodium Ur Random Potassium Ur Random Chloride Stool Occult Blood Urine Opiates Screen Urine Fentanyl Screen Ur Barbiturates Screen U Amphetamin/Meth Scrn U Benzodiazepines Scrn U Cocaine Metab Screen U Marijuana (THC) Screen Ethyl Alcohol ABG Interpretation ABG results: 01/07/25 05:22 VBG pH 7.49 VBG pCO2 27 L VBG pO2 124 H VBG Base Excess -1 Quality Measures Quality Measures VTE prophylaxis Assessment & Plan Assessment Current Active Medications: Generic Name Dose Route Start Last Admin Trade Name Freq PRN Reason Stop Dose Admin Acetaminophen 650 mg 01/07/25 09:49 Acetaminophen Supp 650 Mg Supp VT 02/06/25 09:48 Q6HR PRN [id number] Dextrose 50 ml 01/07/25 09:48 Dextrose 50%-Water Inj 50 Ml Syringe IV 02/06/25 09:47 Q15MIN PRN BG <50 OR BG <70 & pt unresponsive Dextrose 25 ml 01/07/25 09:48 Dextrose 50%-Water Inj 50 Ml Syringe IV 02/06/25 09:47 Q15MIN PRN BG 50-70 responsive npo pt Glucagon 1 mg 01/07/25 09:47 Glucagon Inj 1 Mg Vial IM Q15MIN PRN BG <70, and no IV access Heparin Sodium (Porcine) 5,000 unit 01/07/25 10:00 01/07/25 10:16 Heparin Sod Inj 5000 Unit/Ml Vial SC 01/21/25 09:59 5,000 unit Q12HR LEIGHA Administration Sodium Chloride 500 ml/ IV 500 mls @ 15 mls/hr 01/07/25 13:30 01/07/25 13:42 Miscellaneous Supplies IV 01/08/25 22:49 15 mls/hr X1 ONE Administration Insulin Human Lispro 0 unit 01/07/25 11:30 01/07/25 13:16 Insulin Lispro (Admelog) 1 Unit/0.01 Ml Unit SC 02/06/25 11:29 Not Given AC [facility] Protocol Ondansetron HCl 4 mg 01/07/25 09:46 Ondansetron Inj 2 Mg/Ml Inj 2 Ml IVP 02/06/25 09:45 Q6H PRN NAUSEA OR VOMITING Protocol Plan 64-year-old male with a past medical history of hypertension diabetes who came to the emergency department with altered mental status. Was found to be severely hyponatremic with a sodium of 112 mmol/L. Was admitted to the ICU for sodium resuscitation. Neuro: #Acute encephalopathy. Patient presented with altered mental status and significant confusion, baseline is unknown as no medical history is available. No visible trauma to his head. CT scan of the head showed periventricular chronic small vessel ischemia and volume loss, no mass effect or hemorrhage. At this moment his encephalopathy will be treated as secondary to severe hyponatremia. Plan: -Neurochecks every hour. -Continue following sodium. -Holding olanzapine. Cardiovascular: #History of Hypertension Per patient's family member the patient sees his PCP for hypertension, was encouraged to avoid salt and sugar Patient takes lisinopril at home Plan: -Holding home lisinopril Respiratory: #Previous lung nodule Chest CT in 2022 showed a 5 cm stellate nodule in the right middle lobe Chest CT on 01/07/2025 negative for any pulmonary nodule, had concern for small cell carcinoma versus squamous cell carcinoma in the presence of smoking history and hyponatremia possibly due to SIADH Plan: -Encourage patient to quit smoking Gastrointestinal: # Coffee-ground emesis Patient presented to the ED covered with vomitus, was given Zofran x 1 IV with resolution of symptoms. Patient had 2 episodes of coffee-ground emesis after admission to the ICU NG tube suctioned 1 L of dark coffee-ground fluid from stomach Plan: -NG tube low intermittent suction, monitor for bowel movements -GI consult -Protonix 40mg BID, 80mg bolus -Trend CBC at Midnight 01/08/25 -Zofran as needed ordered. -Aspiration precautions. #Elevated total bilirubin. On admission total bilirubin 1.8, patient does not endorse abdominal pain and abdomen is nontender on physical exam. Other LFTs are within normal limit. Direct bilirubin 0.6. Plan: -Liver ultrasound and KUB ordered. #Possible Small bowel obstruction X-ray abdomen showed moderate air distention of the stomach, moderate stool throughout the colon During NG tube placement patient had black emesis, occult blood positive, likely contaminated by nasopharyngeal trauma during NG tube placement Plan: -Monitor for bowel movement -Consider enema if no bowel movement by end of shift. Renal: #Severe symptomatic hypoosmolar hypochloremic hyponatremia of unknown duration. #Possible SIADH Patient presented with sodium 112, potassium 4, chloride 80, calculated osmolarity 226. Unknown duration of confusion, no prior labs on file. Will treat him as chronic symptomatic hyponatremia. Urine sodium 47, urine specific gravity 1.009, calculated urine osmolality 270, uric acid 2.8 Sodium trended down to 110 mmol/L, hypertonic 3% saline solution started at 30 cc/h, Sodium risen to 116 mmol/L since admission Goal sodium 118 mmol/L 24 hrs. after presentation. Patient is net 2.6 L negative, expect rise in Sodium 3% hypertonic saline off currently Consider home medication side effects, lisinopril and olanzapine Plan: -Started on hypertonic saline 3% 30 cc/h with goal to achieve 24 hours increase in serum sodium of 4 to 6 mEq. -Nephrology on board. -Sodium check every 2 hours. #Severe hypomagnesemia. On admission magnesium 0.9. Corrected to 1.3 after 4 gm of magnesium given Plan: -Recheck in a.m. Endocrine: #History of diabetes Takes metformin and Farxiga at home A1C 5.6 Plan: -Holding these medications for now Infectious Disease: #Concern for possible aspiration, ruled out Patient presented to the ED covered in emesis, his WBCs were 13.5, chest x-ray pending. 2 episodes of coffee-ground emesis Plan: -Blood cultures taken. -DC antibiotics -Aspiration precautions Hematology/Oncology: #Leukocytosis. [place] down Plan: -Follow-up with daily CBC. Diet: NPO. DVT prophylaxis: Holding heparin, SCDs. GI prophylaxis: Protonix. Code status: FULL CODE. Disposition: ICU. Correcting severe hyponatremia. GI consult for coffee-ground emesis. Patient was seen and discussed with my attending physician Dr. Miguel Rae MD and my senior resident Dr. Mika Braxton MD PGY-2. Chano Ta DO PGY-1. Attending Provider Attestation/Addendum Patient seen and examined with above resident, Chano Ta DO. I agree with the findings, assessment, and plan of care as documented separately differences below. Patient admitted with euvolemic hyponatremia. Patient with significant GI losses though this may suggest a component of hypovolemia as well. Sodium down to 110 after initial value of 112 in the ED. Hypertonic saline utilized with addition of DDAVP for high urine output. Try to maintain around goal of 116-118 for the next 24 hours which will end at 06 100 tomorrow morning. Patient initially admitted to confusion and altered mental status which gradually improved as expected with hyponatremia into acute encephalopathy. Patient without any evidence of seizure activity today. Patient's course also complicated by presence of coffee-ground emesis with NG tube placement for decompression of the upper GI tract. Patient with history of pulmonary nodule and weight loss and we will repeat CT scan now after multiple years. Will assess for possible SIADH in setting of an underlying lung malignancy. The GI tract also remains a potential etiology and with the emesis and output, will ask GI for potential evaluation for endoscopy. Will remain on PPI empirically at this point. Monitor closely in the ICU for seizure precautions and head of the bed is elevated appropriately. SCDs in the interim while we await monitoring of H&H to ensure there is no active bleeding before initiating chemical prophylaxis for VTE. Discussed with renal discharge plan of care including use of DDAVP versus D5W for avoidance of overcorrection or response, will continue to follow serial labs every 2 hours. Total critical care time: I personally spent 40 minutes for review of physiologic parameters, directing plan of care throughout the day, coordination of care with other subspecialist, and counseling patient at bedside. This is exclusive of time spent teaching of staff or performing any separate billable procedures. Patient remains at significant risk for further morbidity and mortality warranting close monitoring and care only available in the ICU. Patient required critical care services for severe hyponatremia, acute encephalopathy, upper GI bleed.
[2025-01-07 16:59] LABS: Sodium 116 mMol/L (136-145)
--- NOTE | 2025-01-07 17:19 | PD.RESCONSUL ---
HPI Data of Consult Consult date: 01/07/25 Requesting Physician: Danay Robles MD Admitting Provider: Danay Robles MD Attending Provider: Danay Robles MD Primary Care Provider: Physician No Primary/Family Consult Narrative Reason for consult: Multiple episodes hematemesis History of present illness: Patient is a 64-year-old male with PMH of GERD, DM, HTN, migraines who presented to the hospital for confusion; admitted to ICU for symptomatic hyponatremia (sodium into the 110s and altered mental status). Patient does not know why he came to the hospital; he does member coming here, and does remember that he was feeling well 2 days ago and was watching TV. He did not do anything out of the ordinary during this time. Denies previous bloody bowel movements or hematemesis. States that he has also had 1 month of difficulty swallowing both solids and liquids. Per ICU staff, he has had 2 episodes of coffee-ground emesis. The first was when the NG tube was placed initially this morning (approximately 500 mL); the second was when the NG tube was clamped this afternoon (approximately 500 mL). 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; Exam Vital Signs Temp Pulse Resp BP Pulse Ox O2 Del Method 98.8 F 66 24 H 139/88 H 99 Room Air 01/07/25 12:00 01/07/25 17:00 01/07/25 17:00 01/07/25 17:00 01/07/25 17:00 01/07/25 16:00 Routine Respiratory Exam Respiratory: Present CTA bilaterally Routine Cardiovascular Exam Cardiovascular: Present RRR, S1 and S2 Routine Abdominal Exam Abdominal: Present soft and normoactive bowel sounds Comments: No tenderness to palpation Results Labs 01/08/25 04:39 01/08/25 16:05 Labs: Short CBC 01/07/25 01/07/25 Range/Units 02:58 05:22 WBC 13.5 H 12.0 H (3.8-10.6) Thou/mm3 Hgb 14.1 13.0 L (13.5-16.0) g/dL Hct 37.3 L 33.9 L (41.0-53.0) % Plt Count 219 218 (140-440) Thou/mm3 BMP 01/07/25 01/07/25 01/07/25 02:58 05:22 07:35 Sodium 112 L* 110 L* 114 L* Potassium 4.0 3.8 Chloride 80 L 80 L Carbon Dioxide 20.5 19.4 L BUN 7 L 6 L Creatinine 1.1 0.9 Glucose 111 H 91 Calcium 8.8 8.7 01/07/25 01/07/25 01/07/25 09:55 11:20 12:20 Sodium 115 L* 115 L* 114 L* Potassium Chloride Carbon Dioxide BUN Creatinine Glucose Calcium 01/07/25 01/07/25 13:45 16:13 Sodium 115 L* 116 L* Potassium Chloride Carbon Dioxide BUN Creatinine Glucose Calcium Cardiac Enzymes 01/07/25 Range/Units 02:58 Troponin I < 0.020 (0.0-0.045) ng/mL Liver Function 01/07/25 01/07/25 Range/Units 02:58 05:22 Total Bilirubin 1.8 H 1.8 H (0.3-1.2) mg/dL Direct Bilirubin 0.6 H (0.0-0.3) mg/dL AST 23 25 (0-34) U/L ALT 16 13 (10-49) U/L Alkaline Phosphatase 52 45 L (46-116) U/L Albumin 4.3 3.8 D (3.4-4.8) gm/dL Urine 01/07/25 Range/Units 03:15 Urine Color Lt-Yellow (Lt Yel-Yel) Urine Clarity Clear (Clear/Hazy) Urine pH 6.5 (5.0-7.0) Ur Specific [place] 1.009 (1.001-1.035) Urine Protein Negative (Neg - Trace) Urine Glucose (UA) 4+ A (Negative) ABG Interpretation ABG results: 01/07/25 05:22 VBG pH 7.49 VBG pCO2 27 L VBG pO2 124 H VBG Base Excess -1 Impressions Impression: # At least 2 witnessed episodes of hematemesis Plan Patient will need fiberoptic esophagogastroduodenoscopy with possible biopsy possible therapeutic intervention under intravenous moderate sedation However patient's sodium is quite low I like to have his sodium at least above 120 before intravenous moderate sedation can be given We will reevaluate the patient in the morning and if the sodium is up to the decent level I will schedule the upper endoscopy Continue intermittent suction with the orogastric tube # Gross electrolyte abnormalities sodium currently at 116 And gradually coming up Thank you very much for the opportunity to participate in care of this patient Will follow the patient Quality Measures Quality Measures VTE prophylaxis Medications Home Medications and Allergies Home Medications ?Medication ?Instructions ?Recorded ?Confirmed ?Type docusate sodium 100 mg tablet 100 mg PO QDAY 01/20/21 02/14/22 History finasteride 5 mg tablet 5 mg PO QDAY 01/20/21 01/07/25 History metformin 500 mg tablet 500 mg PO QDAY 01/20/21 01/07/25 History olanzapine 20 mg tablet 20 mg PO QDAY 01/20/21 02/14/22 History omeprazole 20 mg tablet,delayed 20 mg PO QDAY 01/20/21 02/14/22 History release tamsulosin 0.4 mg capsule 0.4 mg PO QHS 08/10/21 01/07/25 History atorvastatin 20 mg tablet 20 mg PO .QD 01/07/25 01/07/25 History dapagliflozin propanediol 10 mg 10 mg PO .QD 01/07/25 01/07/25 History tablet (Farxiga) ferrous sulfate 325 mg (65 mg 325 mg PO .QOD 01/07/25 01/07/25 History iron) tablet (FeroSul) finasteride 5 mg tablet 5 mg PO .QOD 01/07/25 01/07/25 History finerenone 10 mg tablet (Kerendia) 10 mg PO .QOD 01/07/25 01/07/25 History Held on 01/07/25. Instructions: Doctor's Order lisinopril 20 mg tablet 20 mg PO .QD 01/07/25 01/07/25 History metformin 500 mg tablet 500 mg PO .COMPLEX 01/07/25 01/07/25 History olanzapine 10 mg tablet 10 mg PO HS 01/07/25 01/07/25 History oxybutynin chloride 2.5 mg tablet 2.5 mg PO BID 01/07/25 01/07/25 History pantoprazole 40 mg tablet,delayed 40 mg PO QDAY 01/07/25 01/07/25 History release tamsulosin 0.4 mg capsule 0.4 mg PO Q24H 01/07/25 01/07/25 History Allergies Allergy/AdvReac Type Severity Reaction Status Date / Time niacin Allergy Mild Redness of Verified 01/07/25 06:03 Skin Visit Medications Acetaminophen (Acetaminophen Supp 650 Mg Supp) 650 mg WV Q6HR PRN PRN Reason: [id number] Stop: 02/06/25 09:48 Dextrose (Dextrose 50%-Water Inj 50 Ml Syringe) 50 ml IV Q15MIN PRN PRN Reason: BG <50 OR BG <70 & pt unresponsive Stop: 02/06/25 09:47 Dextrose (Dextrose 50%-Water Inj 50 Ml Syringe) 25 ml IV Q15MIN PRN PRN Reason: BG 50-70 responsive npo pt Stop: 02/06/25 09:47 Glucagon (Glucagon Inj 1 Mg Vial) 1 mg IM Q15MIN PRN PRN Reason: BG <70, and no IV access Heparin Sodium (Porcine) (Heparin Sod Inj 5000 Unit/Ml Vial) 5,000 unit SC Q12HR LEIGHA Stop: 01/21/25 09:59 Last Admin: 01/07/25 10:16 Dose: 5,000 unit Sodium Chloride 500 ml/ IV (Miscellaneous Supplies) 500 mls @ 15 mls/hr IV X1 ONE Stop: 01/08/25 22:49 Last Admin: 01/07/25 13:42 Dose: 15 mls/hr Insulin Human Lispro (Insulin Lispro (Admelog) 1 Unit/0.01 Ml Unit) 0 unit SC AC LEIGHA; Protocol Stop: 02/06/25 11:29 Last Admin: 01/07/25 13:16 Dose: Not Given Ondansetron HCl (Ondansetron Inj 2 Mg/Ml Inj 2 Ml) 4 mg IVP Q6H PRN; Protocol PRN Reason: NAUSEA OR VOMITING Stop: 02/06/25 09:45 Pantoprazole Sodium (Pantoprazole Inj 40 Mg Vial) 40 mg IVP BID LEIGHA Stop: 02/06/25 20:59 Discontinued Medications Acetaminophen (Acetaminophen Supp 650 Mg Supp) 650 mg WV Q6HR PRN PRN Reason: [id number] Stop: 02/06/25 04:54 Desmopressin Acetate (Desmopressin Acetate 4 Mcg/Ml Vial) 4 mcg IV X1 ONE Stop: 01/07/25 13:16 Last Admin: 01/07/25 13:46 Dose: Not Given Dextrose (Dextrose 50%-Water Inj 50 Ml Syringe) 25 ml IV Q15MIN PRN PRN Reason: BG 50-70 responsive npo pt Stop: 02/06/25 06:00 Dextrose (Dextrose 50%-Water Inj 50 Ml Syringe) 50 ml IV Q15MIN PRN PRN Reason: BG <50 OR BG <70 & pt unresponsive Stop: 02/06/25 06:00 Famotidine (Famotidine Inj 10 Mg/Ml Vial 2 Ml) 20 mg IVP QDAY [facility] Stop: 02/06/25 08:59 Famotidine (Famotidine Inj 10 Mg/Ml Vial 2 Ml) 20 mg IVP QDAY [facility] Stop: 02/06/25 09:59 Famotidine (Famotidine Inj 10 Mg/Ml Vial 2 Ml) 20 mg IVP QDAY [facility] Stop: 02/06/25 09:59 Last Admin: 01/07/25 10:18 Dose: 20 mg Glucagon (Glucagon Inj 1 Mg Vial) 1 mg IM Q15MIN PRN PRN Reason: BG <70, and no IV access Heparin Sodium (Porcine) (Heparin Sod Inj 5000 Unit/Ml Vial) 5,000 unit SC Q12HR LEIGHA Stop: 01/21/25 08:59 Magnesium Sulfate (Magnesium Sulfate Ivpb) 4 gm in 50 mls @ 12.5 mls/hr IV X1 ONE Stop: 01/07/25 08:57 Last Admin: 01/07/25 05:24 Dose: 12.5 mls/hr Sodium Chloride 500 ml/ IV (Miscellaneous Supplies) 500 mls @ 30 mls/hr IV X1 ONE Stop: 01/07/25 21:34 Last Infusion: 01/07/25 10:15 Dose: 0 mls/hr Ceftriaxone Sodium/Dextrose (Rocephin/D5w 1gm Iv Premix) 1 gm in 50 mls @ 100 mls/hr IV QDAY LEIGHA Stop: 01/14/25 05:04 Last Infusion: 01/07/25 06:08 Dose: Infused Metronidazole (Flagyl 500 Mg Iv) 500 mg in 100 mls @ 200 mls/hr IV Q8HR LEIGHA Stop: 01/14/25 13:59 Metronidazole (Flagyl 500 Mg Iv) 500 mg in 100 mls @ 200 mls/hr IV X1 ONE Stop: 01/07/25 05:44 Last Infusion: 01/07/25 07:01 Dose: Infused Sodium Chloride 500 ml/ IV (Miscellaneous Supplies) 500 mls @ 40 mls/hr IV X1 ONE Stop: 01/07/25 17:24 Last Admin: 01/07/25 07:55 Dose: 40 mls/hr Sodium Chloride 500 ml/ IV (Miscellaneous Supplies) 500 mls @ 30 mls/hr IV X1 ONE Stop: 01/08/25 01:39 Last Admin: 01/07/25 09:01 Dose: 30 mls/hr Insulin Human Lispro (Insulin Lispro (Admelog) 1 Unit/0.01 Ml Unit) 0 unit SC AC LEIGHA; Protocol Stop: 02/06/25 07:29 Last Admin: 01/07/25 08:50 Dose: Not Given Ondansetron HCl (Ondansetron Inj 2 Mg/Ml Inj 2 Ml) 4 mg IV X1 ONE; Protocol Stop: 01/07/25 02:24 Last Admin: 01/07/25 03:04 Dose: 4 mg Ondansetron HCl (Ondansetron Inj 2 Mg/Ml Inj 2 Ml) 4 mg IVP Q6H PRN; Protocol PRN Reason: NAUSEA OR VOMITING Stop: 02/06/25 04:54 Pantoprazole Sodium (Pantoprazole Inj 40 Mg Vial) 80 mg IVP X1 ONE Stop: 01/07/25 16:43 Assessment & Plan Plan Patient seen by Dr. Juan Diego Larkin MD, and staffed with Dr. David Storey MD, attending. Attending Provider Attestation/Addendum Patient examined in the intensive care unit All laboratory data and imaging studies reviewed with my team I personally reviewed everything Once patient's sodium comes up fiberoptic esophagogastroduodenoscopy with possible biopsy possible therapeutic intervention hopefully by tomorrow Thank you very much for the opportunity to participate in the care of this patient
[2025-01-07 18:52] LABS: Sodium 116 mMol/L (136-145)
[2025-01-07 21:04] LABS: Sodium 118 mMol/L (136-145)
[2025-01-07 22:44] LABS: Sodium 120 mMol/L (136-145)
[2025-01-08] VITALS (27 sets, daily range): BP systolic 99–129; BP diastolic 47–77; PULSE 55–78; RESP 10–99; TEMP 37–37.2; O2SAT 94–100; BMI 21.2
[2025-01-08 00:43] LABS: Hematocrit 33.9 % (41.0-53.0); Hemoglobin 12.7 g/dL (13.5-16.0)
[2025-01-08 00:51] LABS: Sodium 121 mMol/L (136-145)
[2025-01-08] MEDS: DESMOPRESSIN ACETATE 4 MCG/ML VIAL 2 MCG IVP (01:08)
[2025-01-08 03:09] LABS: Sodium 122 mMol/L (136-145)
[2025-01-08] MEDS: DEXTROSE 5%-WATER 500 ML 200 ML IV (03:35)
[2025-01-08 05:07] LABS: Basophils # (Auto) 0.0 Thou/mm3 (0.0-0.2); Basophils % (Auto) 0 % (0-2.5); Eosinophils # (Auto) 0.1 Thou/mm3 (0.0-0.5); Eosinophils % (Auto) 1 % (0-10); Hematocrit 32.2 % (41.0-53.0); Hemoglobin 12.0 g/dL (13.5-16.0); Immature Granulocytes Auto 0.03 Thou/mm3 (0.00-0.00); Lymphocytes # (Auto) 1.8 Thou/mm3 (1.0-4.8); Lymphocytes % (Auto) 20 % (10-50); Mean Corpuscular HGB Conc 37.3 g/dl (31.0-37.0); Mean Corpuscular Hemoglobin 33.6 pg (25.0-35.0); Mean Corpuscular Volume 90 fL (80-100); Monocytes # (Auto) 0.7 Thou/mm3 (0.0-0.8); Monocytes % (Auto) 7 % (0-12); Neutrophils # (Auto) 6.2 Thou/mm3 (1.8-7.7); Neutrophils % (Auto) 71 % (37-80); Nucleated Red Blood Cell # 0.00 Thou/mm3 (0.00-0.00); Nucleated Red Blood Cell % 0 /100 WBC (0); Platelet Count 209 Thou/mm3 (140-440); RDW Standard Deviation 39.8 fL (35.1-43.9); Red Blood Count 3.57 Miln/mm3 (4.50-5.90); White Blood Count 8.8 Thou/mm3 (3.8-10.6)
[2025-01-08 05:36] LABS: Alanine Aminotransferase 10 U/L (10-49); Albumin, Serum 3.2 gm/dL (3.4-4.8); Albumin/Globulin Ratio 1.8 (1.2-2.2); Alkaline Phosphatase 37 U/L (46-116); Anion Gap 8 (7-16); Aspartate Amino Transferase 17 U/L (0-34); BUN/Creatinine Ratio 8 Ratio (12-20); Bilirubin,Total 0.8 mg/dL (0.3-1.2); Blood Urea Nitrogen 8 mg/dL (9-23); Calcium 7.6 mg/dL (8.3-10.6); Calcium (Corrected) 8.2 mg/dL (8.5-10.1); Carbon Dioxide 23.9 mMol/L (20.0-31.0); Chloride 89 mMol/L (98-107); Creatinine (Component) 1.0 mg/dL (0.6-1.3); Estimated Creatinine Clearance 69.1 mL/min (>60); Globulin 1.8 gm/dL (2.3-3.5); Glucose 117 mg/dL (74-106); Magnesium 1.4 mg/dL (1.6-2.6); Osmolality,Calculated 243 (275-295); Phosphorous 2.6 mg/dL (2.4-5.1); Potassium 3.2 mMol/L (3.4-5.1); Sodium 121 mMol/L (136-145); Total Protein 5.0 gm/dL (5.7-8.2); eGFR > 60 See Note
[2025-01-08 07:06] LABS: Sodium 120 mMol/L (136-145)
[2025-01-08] MEDS: Magnesium Sulfate 4 GM Ivpb 4 GM/50 ML BAG IV (07:09)
[2025-01-08] MEDS: POTASSIUM CHL 10 mEq IVPB 10 MEQ/100 ML BAG 100 MEQ IV ×4 (07:10→10:50)
[2025-01-08] MEDS: ONDANSETRON INJ 2 MG/ML INJ 2 ML 4 MG IVP ×2 (07:10→20:28)
[2025-01-08] MEDS: DEXTROSE 5%-WATER 500 ML 250 ML IV (07:11)
[2025-01-08 08:25] LABS: Sodium 120 mMol/L (136-145)
[2025-01-08] MEDS: DESMOPRESSIN ACETATE 4 MCG/ML VIAL IV ×3 (09:30→20:15)
[2025-01-08 10:46] LABS: Sodium 120 mMol/L (136-145)
[2025-01-08] MEDS: DEXTROSE 5%-WATER 500 ML 100 ML IV (10:55)
--- NOTE | 2025-01-08 12:33 | PC.SS ---
Patient is a 64YO White male, reason for visit: SYMPTOMATIC HYPONATREMIA. Fermenter met with patient at bedside to complete initial assessment. Role and purpose of today?s contact was explained. Patient confirmed his demographic information. He stated Radha Elder [phone] is his primary medical surrogate decisionmaker. Patient explained he lives with Radha. He is independent with ADLs and independent with ambulation as well. Pharmacy: [facility]. PCP: Radha Concepcion, patient unable to recall last appt. date. He reports seeing PCP several months ago. SS informed by PT El patient has no PT needs. Discharge plan: Home, Radha to provide transportation. Next of kin: Radha Elder [phone]
[2025-01-08 12:35] LABS: Sodium 121 mMol/L (136-145)
--- NOTE | 2025-01-08 13:35 | PC.PT ---
PT eval only. Patient was xI with bed mobility, transfers, and ambulation using an AD and without an AD. Patient is safe to ambulate to the bathroom and in the halls with 1 staff assist and no AD. RN made aware.
--- NOTE | 2025-01-08 13:50 | ESPR_ITS ---
<Statement entered by Mika Braxton MD - 01/09/25 15:02> Patient was seen and examined at bedside. I agree on the assessment and plan on this note as documented by resident Chano Ta PGY1. Patient seen and examined at bedside in intensive care unit, patient sodium did go up to 122 at 3 AM overnight, goal sodium was 118, patient was given 2 mcg of desmopressin and 500 cc of D5W overnight and sodium this morning was noted to be 120. Patient will be started on desmopressin 4 mcg every 6 hours, will start on D5W 150 cc/h and maintain a goal of sodium 120 throughout the day today to keep goal sodium correction less than 12 in 48 hours, nephrology on board, appreciate recommendations. Case discussed with weaver apprentice, per gastroenterology patient should be stable for EGD after sodium is more than 120, we will postpone EGD to tomorrow. CT scan of the chest was negative and there is no concern of underlying lung tumor causing SIADH, patient's magnesium was repleted, patient noted to have GNR growth in 1/2 blood cultures, suspicion of bacterial translocation through possible GI bleed, will wait for speciation though we will start patient on ceftriaxone 2 g daily to cover for GNR bacteremia. Will monitor patient in ICU today, will continue sodium checks every 2 hours with goal sodium 120. Case discussed with attending Dr. Kyra Braxton MD PGY-2 Documentation for date of: 01/08/25 Subjective Subjective Interval history: Patient is 64 years old male with past medical history of hypertension, type 2 diabetes, GERD, and previous incarceration of 8 years, marijuana use, and distant history of methamphetamine use who presented to the ED due to nausea and vomiting. Patient was brought by niece and is very confused and nonverbal, no other information is available. Per emergency room note patient presented covered with vomitus, was confused and nonverbal since initial presentation. He is minimally verbal and responds yes or no to some questions. Patient is able to tell his name but otherwise is disoriented. He appears to be well-groomed and does not appear to be homeless. On admission his blood pressure 153/85, pulse 79, respirations 18, temperature 98.4 ?F, oxygen saturation 97% on room air initial labs showed WBC 13.5, sodium 112, potassium 4, chloride 80, creatinine 1.1 with unknown baseline, glucose 111, calculated osmolarity 226, lactic acid 1.4, magnesium 0.9, total bilirubin 1.8, troponin negative, lipase 30. Urinalysis showed glucose 4+, ketones 1+. Toxicology Is Negative. Head CT showed periventricular chronic small vessel ischemia and volume loss, no mass effect or hemorrhage. EKG showed sinus rhythm. Chest x-ray pending. He was given Zofran x 1 in the ED. Patient was admitted to ICU for further management of severe symptomatic hyponatremia. Interval history 01/07/2025: Patient admitted to ICU on 3% sodium drip at 30 mL/h. Tracking sodium every hour, titrating sodium infusion appropriately, goal is to correct by increasing Na by 6 mmol/L up to 118 mmol/L over the first 24 hours of admission based on arrival sodium of 112 mmol/L, most recent sodium 116 mmol/L, paused infusion due to high urine output of approximately 125 mL/h. Nephro on board. Pending CT chest. NG tube inserted upon ICU admission. Patient had 2 episodes of coffee-ground emesis since ICU admission. NG tube suctioned 1 L of dark coffee-ground fluid. GI consulted. 01/08/2025: Continuing to manage sodium resuscitation. Patient overcorrected to sodium of 122 at 3 AM, 24 hours after admission. Goal was 118. Was given 2mcg of desmo and 0.5 of LR at the time, sodium returned to 121. Was given another 130 cc LR, sodium returned to 120. Patient put out 200 from the NG tube, and 70 of urine, was given 4mcg of desmo and restarted D5W drip at a rate of 100 mL/h, resulted sodium was 120. Patient switched to and now on D5W at 150 mL/h, latest sodium 121, continuing to monitor, sodium goal is 124 after 48 hours. Patient was hypomagnesemic at 1.4, given 4 of magnesium. Patient was hypokalemic at 3.2, given [address] chest was negative for pulmonary nodules. GI recommends EGD after sodium above 120. Nephro following. Exam Vital Signs Temp Pulse Resp BP Pulse Ox O2 Del Method 98.9 F 61 18 106/54 L 98 Room Air 01/08/25 12:00 01/08/25 13:00 01/08/25 13:00 01/08/25 13:00 01/08/25 13:00 01/08/25 12:00 Narrative Exam General: Awake and alert. Neurologic: GCS 15. Oriented to place, no gross neurological deficit, and patient able to move all 4 extremities. HEENT: Normocephalic, atraumatic, mucous membranes moist. Pupils reactive to light. Heart: Regular rate and rhythm, normal S1 and S2, no murmurs. Lungs: Clear to auscultation bilaterally with no wheezing or crackles. Abdomen: Firm, nondistended, nontender, positive bowel sounds. No guarding or rebound tenderness. Extremities: No edema. 2+ radial and dorsalis pedis pulses bilaterally. Skin: Warm. Dry. No rash or ecchymoses. Objective Labs 01/11/25 06:36 01/11/25 12:21 Labs: Laboratory Results - last 24 hr 01/07/25 01/07/25 01/07/25 13:45 16:13 18:12 WBC RBC Hgb Hct MCV MCH MCHC RDW Std Deviation Plt Count Neut % (Auto) Lymph % (Auto) [place] % (Auto) Eos % (Auto) Baso % (Auto) Neut # (Auto) Lymph # (Auto) [place] # (Auto) Eos # (Auto) Baso # (Auto) Immature Gran # (Auto) Absolute Nucleated RBC Immature Gran % Nucleated RBC % Sodium 115 L* 116 L* 116 L* Potassium Chloride Carbon Dioxide Anion Gap BUN Creatinine Estim Creat Clear Calc eGFR BUN/Creatinine Ratio Glucose Calculated Osmolality Calcium Corrected Calcium Phosphorus Magnesium Total Bilirubin AST ALT Alkaline Phosphatase Total Protein Albumin Globulin Albumin/Globulin Ratio 01/07/25 01/07/25 01/08/25 20:12 22:20 00:28 WBC RBC Hgb 12.7 L Hct 33.9 L MCV MCH MCHC RDW Std Deviation Plt Count Neut % (Auto) Lymph % (Auto) [place] % (Auto) Eos % (Auto) Baso % (Auto) Neut # (Auto) Lymph # (Auto) [place] # (Auto) Eos # (Auto) Baso # (Auto) Immature Gran # (Auto) Absolute Nucleated RBC Immature Gran % Nucleated RBC % Sodium 118 L* 120 L 121 L Potassium Chloride Carbon Dioxide Anion Gap BUN Creatinine Estim Creat Clear Calc eGFR BUN/Creatinine Ratio Glucose Calculated Osmolality Calcium Corrected Calcium Phosphorus Magnesium Total Bilirubin AST ALT Alkaline Phosphatase Total Protein Albumin Globulin Albumin/Globulin Ratio 01/08/25 01/08/25 01/08/25 02:38 04:39 06:10 WBC 8.8 RBC 3.57 L Hgb 12.0 L Hct 32.2 L MCV 90 MCH 33.6 MCHC 37.3 H RDW Std Deviation 39.8 Plt Count 209 Neut % (Auto) 71 Lymph % (Auto) 20 [place] % (Auto) 7 Eos % (Auto) 1 Baso % (Auto) 0 Neut # (Auto) 6.2 Lymph # (Auto) 1.8 [place] # (Auto) 0.7 Eos # (Auto) 0.1 Baso # (Auto) 0.0 Immature Gran # (Auto) 0.03 H Absolute Nucleated RBC 0.00 Immature Gran % 0 Nucleated RBC % 0 Sodium 122 L 121 L 120 L Potassium 3.2 L D Chloride 89 L Carbon Dioxide 23.9 Anion Gap 8 BUN 8 L Creatinine 1.0 Estim Creat Clear Calc 69.1 eGFR > 60 BUN/Creatinine Ratio 8 L Glucose 117 H Calculated Osmolality 243 L Calcium 7.6 L Corrected Calcium 8.2 L Phosphorus 2.6 Magnesium 1.4 L Total Bilirubin 0.8 D AST 17 ALT 10 Alkaline Phosphatase 37 L Total Protein 5.0 L Albumin 3.2 L D Globulin 1.8 L Albumin/Globulin Ratio 1.8 01/08/25 01/08/25 01/08/25 07:44 10:10 12:10 WBC RBC Hgb Hct MCV MCH MCHC RDW Std Deviation Plt Count Neut % (Auto) Lymph % (Auto) [place] % (Auto) Eos % (Auto) Baso % (Auto) Neut # (Auto) Lymph # (Auto) [place] # (Auto) Eos # (Auto) Baso # (Auto) Immature Gran # (Auto) Absolute Nucleated RBC Immature Gran % Nucleated RBC % Sodium 120 L 120 L 121 L Potassium Chloride Carbon Dioxide Anion Gap BUN Creatinine Estim Creat Clear Calc eGFR BUN/Creatinine Ratio Glucose Calculated Osmolality Calcium Corrected Calcium Phosphorus Magnesium Total Bilirubin AST ALT Alkaline Phosphatase Total Protein Albumin Globulin Albumin/Globulin Ratio ABG Interpretation ABG results: 01/07/25 05:22 VBG pH 7.49 VBG pCO2 27 L VBG pO2 124 H VBG Base Excess -1 Quality Measures Quality Measures VTE prophylaxis Assessment & Plan Assessment Current Active Medications: Generic Name Dose Route Start Last Admin Trade Name Freq PRN Reason Stop Dose Admin Acetaminophen 650 mg 01/07/25 09:49 Acetaminophen Supp 650 Mg Supp WV 02/06/25 09:48 Q6HR PRN [id number] Desmopressin Acetate 4 mcg 01/08/25 09:00 01/08/25 09:30 Desmopressin Acetate 4 Mcg/Ml Vial IV 02/07/25 08:59 4 mcg Q6H LEIGHA Administration Protocol Dextrose 50 ml 01/07/25 09:48 Dextrose 50%-Water Inj 50 Ml Syringe IV 02/06/25 09:47 Q15MIN PRN BG <50 OR BG <70 & pt unresponsive Dextrose 25 ml 01/07/25 09:48 Dextrose 50%-Water Inj 50 Ml Syringe IV 02/06/25 09:47 Q15MIN PRN BG 50-70 responsive npo pt Glucagon 1 mg 01/07/25 09:47 Glucagon Inj 1 Mg Vial IM Q15MIN PRN BG <70, and no IV access Heparin Sodium (Porcine) 5,000 unit 01/07/25 10:00 01/07/25 10:16 Heparin Sod Inj 5000 Unit/Ml Vial SC 01/21/25 09:59 5,000 unit Q12HR LEIGHA Administration Sodium Chloride 500 ml/ IV 500 mls @ 15 mls/hr 01/07/25 13:30 01/07/25 14:42 Miscellaneous Supplies IV 01/08/25 22:49 0 mls/hr X1 ONE Infusion Dextrose 500 mls @ 100 mls/hr 01/08/25 11:07 01/08/25 12:38 D5w IV 02/07/25 11:06 150 mls/hr .Q5H LEIGHA Infusion Insulin Human Lispro 0 unit 01/07/25 11:30 01/08/25 11:18 Insulin Lispro (Admelog) 1 Unit/0.01 Ml Unit SC 02/06/25 11:29 Not Given AC LEIGHA Protocol Ondansetron HCl 4 mg 01/07/25 09:46 01/08/25 07:10 Ondansetron Inj 2 Mg/Ml Inj 2 Ml IVP 02/06/25 09:45 4 mg Q6H PRN Administration NAUSEA OR VOMITING Protocol Pantoprazole Sodium 40 mg 01/07/25 21:00 01/08/25 08:21 Pantoprazole Inj 40 Mg Vial IVP 02/06/25 20:59 40 mg BID LEIGHA Administration Plan Plan 64-year-old male with a past medical history of hypertension diabetes who came to the emergency department with altered mental status. Was found to be severely hyponatremic with a sodium of 112 mmol/L. Was admitted to the ICU for sodium resuscitation. Neuro: #Acute encephalopathy. Patient presented with altered mental status and significant confusion, baseline is unknown as no medical history is available. No visible trauma to his head. CT scan of the head showed periventricular chronic small vessel ischemia and volume loss, no mass effect or hemorrhage. At this moment his encephalopathy will be treated as secondary to severe hyponatremia. Plan: -Neurochecks every hour. -Continue following sodium. -Holding olanzapine. Cardiovascular: #History of Hypertension Per patient's family member the patient sees his PCP for hypertension, was encouraged to avoid salt and sugar Patient takes lisinopril at home Plan: -Holding home lisinopril Respiratory: #Previous lung nodule Chest CT in 2022 showed a 5 cm stellate nodule in the right middle lobe Chest CT on 01/07/2025 negative for any pulmonary nodule, had concern for small cell carcinoma versus squamous cell carcinoma in the presence of smoking history and hyponatremia possibly due to SIADH Plan: -Encourage patient to quit smoking Gastrointestinal: #Coffee-ground emesis Patient presented to the ED covered with vomitus, was given Zofran x 1 IV with resolution of symptoms. Patient had 2 episodes of coffee-ground emesis on 01/07/2025 after admission to the ICU NG tube continues to suction dark coffee-ground fluid from stomach H&H stable GI recommends EGD once sodium is above 120 Plan: -NG tube low intermittent suction, monitor for bowel movements -Continue Protonix 40mg BID -Zofran as needed ordered. -Aspiration precautions. #Elevated total bilirubin (Resolved) On admission total bilirubin 1.8, patient does not endorse abdominal pain and abdomen is nontender on physical exam. Other LFTs are within normal limit. Direct bilirubin 0.6 on 01/07/2025 Liver ultrasound showed normal gallbladder and common bile duct KUB x-ray showed moderate stool throughout the colon, no free air Total bilirubin trended down to 0.8 Consider acute phase reaction Plan: Monitor total bilirubin on daily labs #Possible Small bowel obstruction X-ray abdomen showed moderate air distention of the stomach, moderate stool throughout the colon, no free air During NG tube placement patient had black emesis, occult blood positive, likely contaminated by nasopharyngeal trauma during NG tube placement Total of 2 coffee-ground emesis episodes on 01/07/2025 NG tube continues to suction black fluid from stomach Plan: -Monitor for bowel movement -Follow-up GI EGD Renal: #Severe symptomatic hypoosmolar hypochloremic hyponatremia of unknown duration. #Possible SIADH Patient presented with sodium 112, potassium 4, chloride 80, calculated osmolarity 226. Unknown duration of confusion, no prior labs on file. Will treat him as chronic symptomatic hyponatremia. Urine sodium 47, urine specific gravity 1.009, calculated urine osmolality 270, uric acid 2.8 Goal sodium 118 mmol/L 24 hrs. after presentation, result was 122 Patient was given a 0.5 L LR bolus and 2 mcg desmopressin 24 hours postadmission and next sodium was 121, sodium was 120 for the next 3 readings, patient was then given 4 mcg desmopressin and started on D5W drip of 100 mL/h, sodium trended to 121, switched to rate of 150 mL/h, sodium is consistently 120-121, 48-hour goal is 124 3% hypertonic saline off currently Consider home medication side effects, lisinopril and olanzapine as possible SIADH culprits Plan: -Continue to titrate sodium with desmopressin, D5W, and 3% hypertonic saline as needed -Nephrology on board. -Sodium check every 2 hours. #Severe hypomagnesemia. Magnesium 1.4 Plan: -4gm of magnesium Endocrine: #History of diabetes Takes metformin and Farxiga at home A1C 5.6 Plan: -Holding these medications for now Infectious Disease: #Concern for possible aspiration, ruled out Patient presented to the ED covered in emesis, his WBCs were 13.5, chest x-ray pending. 2 episodes of coffee-ground emesis Plan: -Aspiration precautions #GNR bacteremia Blood cultures positive for gram-negative rods Plan: -Rocephin 2 g daily started on 01/08/2025 Hematology/Oncology: #Leukocytosis (Resolved) Diet: NPO. DVT prophylaxis: Holding heparin, SCDs. GI prophylaxis: Protonix. Code status: FULL CODE. Disposition: ICU. Correcting severe hyponatremia. Starting ceftriaxone for GNR bacteremia. Patient was seen and discussed with my attending physician Dr. Miguel Rae MD and my senior resident Dr. Mika Braxton MD PGY-2. Chano Ta DO PGY-1. Attending Provider Attestation/Addendum Patient seen and examined with the above resident, Chano Ta DO. I agree with the findings, assessment, and plan of care as documented except for any differences below. Patient with slight overcorrection of serum sodium. Will try to maintain with use of desmopressin and D5W via IV. Mentation has significantly improved and appears back at baseline. Patient's cousin was at bedside and updated on plan of care. Nephrology significantly involved. Patient with high urine output and we will need to complete help with this if does not present is ineffective and this is likely what led to overcorrection overnight. Nonetheless, patient remains within 10 mEq and IV can maintain this for 48 hours. This will also provide some level of safety against development of central pontine myelinolysis. Patient with CT imaging with suggestion of mucous plugging/scarring and previous nodule as described seems to be stable though there may be an area of worsening superior to this. Patient has been placed empirically on antibiotics with gram-negative bacteremia. Continue aggressive electrolyte replacement. Patient with coffee-ground emesis and once more stable, will plan for EGD to exclude presence of esophageal disease due to patient significantly thickened on CT. Gastroenterology will reassess once serum sodium is steadily above 120. I think it is reasonable today to place NG tube on clamp trial and only place suction in case of increased nausea/vomiting once again. Total critical care time: I personally spent 35 minutes for review of physiologic parameters, directing plan of care throughout today, coordination of care with other subspecialist, counseling patient/family at bedside. This is exclusive of time spent teaching of staff or performing separate billable procedures. Patient remains at significant risk for further morbidity and mortality warranting close monitoring and care only available in the ICU. Patient required critical care services for gram-negative tj bacteremia, severe hyponatremia, acute metabolic encephalopathy, possible small bowel obstruction.
[2025-01-08 14:18] LABS: Sodium 120 mMol/L (136-145)
[2025-01-08] MEDS: cefTRIAXone 2 GM in SODIUM CHLORIDE 0.9% (Popper) 50 ML IV (14:35)
--- NOTE | 2025-01-08 14:57 | PC.SS ---
SS update: EGD pending and nephrology is consulting.
[2025-01-08] MEDS: DEXTROSE 5%-WATER 500 ML 150 ML IV (15:13)
--- NOTE | 2025-01-08 15:13 | PD.RESPRO ---
Documentation for date of: 01/08/25 Subjective Subjective Interval history: Juan M Jasso is a 64 year old male with past medical history, per chart review, of HTN, GERD, BPH, T2DM, depression presents with of vomiting and confusion. Patient was found to have emesis over himself on arrival to ED. Patient is not able to answer questions appropriately as to why he is here or his history, despite being able to answer some orienting questions regarding person/place/time. Patient takes some time to answer. Later in the morning, reported cousin named Radha called and told the hospital that he lives with her and has been having worsening confusion over the last several days; said he started vomiting yesterday morning. Per Radha, his baseline mental status is usaully a&o x3 and ambulates himself. She reported he sees net manager Dr. Driver who recommended decrease sodium and sugar intake which was followed strictly. She also denied him being recently sick, denied fever, chills. On admission his blood pressure 153/85, pulse 79, respirations 18, temperature 98.4 ?F, oxygen saturation 97% on room air initial labs showed WBC 13.5, sodium 112, potassium 4, chloride 80, creatinine 1.1 with unknown baseline, glucose 111, calculated osmolarity 226, lactic acid 1.4, magnesium 0.9, total bilirubin 1.8, troponin negative, lipase 30. Urinalysis showed glucose 4+, ketones 1+. Toxicology Is Negative. Head CT showed periventricular chronic small vessel ischemia and volume loss, no mass effect or hemorrhage. EKG showed sinus rhythm. Chest x-ray pending. He was given Zofran x 1 in the ED. Patient was admitted to ICU for further management of severe symptomatic hyponatremia. 01/08/2025: No acute events overnight. Patient seen and examined at bedside. Patient is more conversant and oriented. Patient is making good urine, 3.4L last 24 hours. Patient's vitals and labs were reviewed. Patient's sodium corrected to 122 overnight, currently 121. Have been alternating between checking sodium levels every 2 hours and throttling with desmopressin or D5W. Patient denies any headache, fever, chest pain, shortness of breath. Exam Vital Signs Temp Pulse Resp BP Pulse Ox O2 Del Method 98.9 F 61 18 106/54 L 98 Room Air 01/08/25 12:00 01/08/25 13:00 01/08/25 13:00 01/08/25 13:00 01/08/25 13:00 01/08/25 12:00 Narrative Exam General: Awake and in no acute distress, more conversant. HEENT: Normocephalic, atraumatic, mildly dry mucous membranes. Heart: Regular rate and rhythm, normal S1 and S2, no murmurs. Lungs: Clear to auscultation with no wheezing or crackles. Abdomen: Soft, nondistended, nontender, positive bowel sounds. ?No guarding or rebound tenderness. Neurologic: A&Ox3, not able to fully examine for neuro deficits, and patient able to move all 4 extremities. Extremities: No edema. Skin: No rash Objective Labs 01/09/25 04:14 01/09/25 06:15 Labs: Laboratory Results - last 24 hr 01/07/25 01/07/25 01/07/25 16:13 18:12 20:12 WBC RBC Hgb Hct MCV MCH MCHC RDW Std Deviation Plt Count Neut % (Auto) Lymph % (Auto) [place] % (Auto) Eos % (Auto) Baso % (Auto) Neut # (Auto) Lymph # (Auto) [place] # (Auto) Eos # (Auto) Baso # (Auto) Immature Gran # (Auto) Absolute Nucleated RBC Immature Gran % Nucleated RBC % Sodium 116 L* 116 L* 118 L* Potassium Chloride Carbon Dioxide Anion Gap BUN Creatinine Estim Creat Clear Calc eGFR BUN/Creatinine Ratio Glucose Calculated Osmolality Calcium Corrected Calcium Phosphorus Magnesium Total Bilirubin AST ALT Alkaline Phosphatase Total Protein Albumin Globulin Albumin/Globulin Ratio 01/07/25 01/08/25 01/08/25 22:20 00:28 02:38 WBC RBC Hgb 12.7 L Hct 33.9 L MCV MCH MCHC RDW Std Deviation Plt Count Neut % (Auto) Lymph % (Auto) [place] % (Auto) Eos % (Auto) Baso % (Auto) Neut # (Auto) Lymph # (Auto) [place] # (Auto) Eos # (Auto) Baso # (Auto) Immature Gran # (Auto) Absolute Nucleated RBC Immature Gran % Nucleated RBC % Sodium 120 L 121 L 122 L Potassium Chloride Carbon Dioxide Anion Gap BUN Creatinine Estim Creat Clear Calc eGFR BUN/Creatinine Ratio Glucose Calculated Osmolality Calcium Corrected Calcium Phosphorus Magnesium Total Bilirubin AST ALT Alkaline Phosphatase Total Protein Albumin Globulin Albumin/Globulin Ratio 01/08/25 01/08/25 01/08/25 04:39 06:10 07:44 WBC 8.8 RBC 3.57 L Hgb 12.0 L Hct 32.2 L MCV 90 MCH 33.6 MCHC 37.3 H RDW Std Deviation 39.8 Plt Count 209 Neut % (Auto) 71 Lymph % (Auto) 20 [place] % (Auto) 7 Eos % (Auto) 1 Baso % (Auto) 0 Neut # (Auto) 6.2 Lymph # (Auto) 1.8 [place] # (Auto) 0.7 Eos # (Auto) 0.1 Baso # (Auto) 0.0 Immature Gran # (Auto) 0.03 H Absolute Nucleated RBC 0.00 Immature Gran % 0 Nucleated RBC % 0 Sodium 121 L 120 L 120 L Potassium 3.2 L D Chloride 89 L Carbon Dioxide 23.9 Anion Gap 8 BUN 8 L Creatinine 1.0 Estim Creat Clear Calc 69.1 eGFR > 60 BUN/Creatinine Ratio 8 L Glucose 117 H Calculated Osmolality 243 L Calcium 7.6 L Corrected Calcium 8.2 L Phosphorus 2.6 Magnesium 1.4 L Total Bilirubin 0.8 D AST 17 ALT 10 Alkaline Phosphatase 37 L Total Protein 5.0 L Albumin 3.2 L D Globulin 1.8 L Albumin/Globulin Ratio 1.8 01/08/25 01/08/25 01/08/25 10:10 12:10 13:50 WBC RBC Hgb Hct MCV MCH MCHC RDW Std Deviation Plt Count Neut % (Auto) Lymph % (Auto) [place] % (Auto) Eos % (Auto) Baso % (Auto) Neut # (Auto) Lymph # (Auto) [place] # (Auto) Eos # (Auto) Baso # (Auto) Immature Gran # (Auto) Absolute Nucleated RBC Immature Gran % Nucleated RBC % Sodium 120 L 121 L 120 L Potassium Chloride Carbon Dioxide Anion Gap BUN Creatinine Estim Creat Clear Calc eGFR BUN/Creatinine Ratio Glucose Calculated Osmolality Calcium Corrected Calcium Phosphorus Magnesium Total Bilirubin AST ALT Alkaline Phosphatase Total Protein Albumin Globulin Albumin/Globulin Ratio ABG Interpretation ABG results: 01/07/25 05:22 VBG pH 7.49 VBG pCO2 27 L VBG pO2 124 H VBG Base Excess -1 Quality Measures Quality Measures VTE prophylaxis Assessment & Plan Assessment Current Active Medications: Generic Name Dose Route Start Last Admin Trade Name Freq PRN Reason Stop Dose Admin Acetaminophen 650 mg 01/07/25 09:49 Acetaminophen Supp 650 Mg Supp NV 02/06/25 09:48 Q6HR PRN [id number] Desmopressin Acetate 4 mcg 01/08/25 09:00 01/08/25 09:30 Desmopressin Acetate 4 Mcg/Ml Vial IV 02/07/25 08:59 4 mcg Q6H LEIGHA Administration Protocol Dextrose 50 ml 01/07/25 09:48 Dextrose 50%-Water Inj 50 Ml Syringe IV 02/06/25 09:47 Q15MIN PRN BG <50 OR BG <70 & pt unresponsive Dextrose 25 ml 01/07/25 09:48 Dextrose 50%-Water Inj 50 Ml Syringe IV 02/06/25 09:47 Q15MIN PRN BG 50-70 responsive npo pt Glucagon 1 mg 01/07/25 09:47 Glucagon Inj 1 Mg Vial IM Q15MIN PRN BG <70, and no IV access Heparin Sodium (Porcine) 5,000 unit 01/07/25 10:00 01/07/25 10:16 Heparin Sod Inj 5000 Unit/Ml Vial SC 01/21/25 09:59 5,000 unit Q12HR LEIGHA Administration Sodium Chloride 500 ml/ IV 500 mls @ 15 mls/hr 01/07/25 13:30 01/07/25 14:42 Miscellaneous Supplies IV 01/08/25 22:49 0 mls/hr X1 ONE Infusion Ceftriaxone Sodium/Dextrose 2 gm in 50 mls @ 100 mls/hr 01/09/25 09:00 Rocephin/D5w 2gm IV 01/15/25 14:23 QDAY LEIGHA Dextrose 500 mls @ 150 mls/hr 01/08/25 15:05 D5w IV 02/07/25 15:04 .Q3H20M [facility] Insulin Human Lispro 0 unit 01/07/25 11:30 01/08/25 11:18 Insulin Lispro (Admelog) 1 Unit/0.01 Ml Unit SC 02/06/25 11:29 Not Given AC [facility] Protocol Ondansetron HCl 4 mg 01/07/25 09:46 01/08/25 07:10 Ondansetron Inj 2 Mg/Ml Inj 2 Ml IVP 02/06/25 09:45 4 mg Q6H PRN Administration NAUSEA OR VOMITING Protocol Pantoprazole Sodium 40 mg 01/07/25 21:00 01/08/25 08:21 Pantoprazole Inj 40 Mg Vial IVP 02/06/25 20:59 40 mg BID LEIGHA Administration Plan Juan M Jasso is a 64 year old male with past medical history, per chart review, of HTN, GERD, BPH, T2DM, depression presents with vomiting and confusion. Neprhology consulted for symptomatic hyponatremia. #symptomatic hypoosmolar hypochloremic hyponatremia Likely pre-renal due to volume loss along with reported hx of strict low sodium diet. Per family member, worsening confusion last several days, vomiting since yesterday. Baseline is reportedly alert/oriented and ambulatory. Reported that he sees net manager Dr. Driver who recommended decrease sodium and sugar intake which was followed strictly Patient presented with sodium 112, potassium 4, chloride 80, calculated osmolarity 226. Making good urine Plan: -Gave hypertonic saline 3% 30 cc/h with goal to achieve 24 hours increase in serum sodium of 4 to 6 mEq. -Continue to throttle rise in sodium with desmopressin 2-4 mcg to prevent over correction; Free water 3 mg/kg/hr drops sodium 1 mEq/hr being another option. -Sodium Check q2 hr. #Acute encephalopathy. #Nausea and vomiting, controlled. #Elevated total bilirubin. #Severe hypomagnesemia. #Concern for possible aspiration. #Leukocytosis. Above managed per primary team Patient plan of care was discussed with the attending physician, Dr. Iglesia Sanders MD PGY-1 Attending Provider Attestation/Addendum Patient seen and examined with resident physician Dr. Sanders. Note reviewed, agree with findings and recommendations. 01/07/2025 Patient currently seen in ICU. Admitted with severe symptomatic hyponatremia needing 3% hypertonic saline. Suspect hypovolemic hyponatremia in appropriate response of ADH. After 3% hypertonic saline's urine output started to improve. Urine output 2.4 L. Gave 1 dose of desmopressin to prevent overcorrection. Goal is 6 mEq in the next 24 hours rise in serum sodium to avoid osmotic demyelination syndrome. Spoke to ICU team. 01/08/2025 patient currently seen in ICU. More alert and awake. Sodium increased to 122. This morning he got a desmopressin and was on 50 mL D5W. Spoke to ICU team to monitor closely and continue giving desmopressin to prevent overcorrection. Urine output markedly increased suggesting ADH response faded. Will monitor sodium along with ICU team. Thank you Dr. Rae for allowing me to participate in the care of Mr. Jasso
[2025-01-08 16:45] LABS: Sodium 119 mMol/L (136-145)
[2025-01-08] MEDS: DEXTROSE 5%-WATER 500 ML 75 ML IV (16:45)
--- NOTE | 2025-01-08 18:32 | ESPR_ITS ---
Documentation for date of: 01/08/25 Subjective Subjective Interval history: Patient evaluated Endoscopy for today canceled till her sodium numbers improve sodium was 119 Exam Vital Signs Temp Pulse Resp BP Pulse Ox O2 Del Method 98.9 F 58 L 17 110/59 L 99 Room Air 01/08/25 16:00 01/08/25 18:00 01/08/25 18:00 01/08/25 18:00 01/08/25 18:00 01/08/25 16:00 Objective Labs 01/08/25 04:39 01/08/25 16:05 Labs: Laboratory Results - last 24 hr 01/07/25 01/07/25 01/07/25 18:12 20:12 22:20 WBC RBC Hgb Hct MCV MCH MCHC RDW Std Deviation Plt Count Neut % (Auto) Lymph % (Auto) [place] % (Auto) Eos % (Auto) Baso % (Auto) Neut # (Auto) Lymph # (Auto) [place] # (Auto) Eos # (Auto) Baso # (Auto) Immature Gran # (Auto) Absolute Nucleated RBC Immature Gran % Nucleated RBC % Sodium 116 L* 118 L* 120 L Potassium Chloride Carbon Dioxide Anion Gap BUN Creatinine Estim Creat Clear Calc eGFR BUN/Creatinine Ratio Glucose Calculated Osmolality Calcium Corrected Calcium Phosphorus Magnesium Total Bilirubin AST ALT Alkaline Phosphatase Total Protein Albumin Globulin Albumin/Globulin Ratio 01/08/25 01/08/25 01/08/25 00:28 02:38 04:39 WBC 8.8 RBC 3.57 L Hgb 12.7 L 12.0 L Hct 33.9 L 32.2 L MCV 90 MCH 33.6 MCHC 37.3 H RDW Std Deviation 39.8 Plt Count 209 Neut % (Auto) 71 Lymph % (Auto) 20 [place] % (Auto) 7 Eos % (Auto) 1 Baso % (Auto) 0 Neut # (Auto) 6.2 Lymph # (Auto) 1.8 [place] # (Auto) 0.7 Eos # (Auto) 0.1 Baso # (Auto) 0.0 Immature Gran # (Auto) 0.03 H Absolute Nucleated RBC 0.00 Immature Gran % 0 Nucleated RBC % 0 Sodium 121 L 122 L 121 L Potassium 3.2 L D Chloride 89 L Carbon Dioxide 23.9 Anion Gap 8 BUN 8 L Creatinine 1.0 Estim Creat Clear Calc 69.1 eGFR > 60 BUN/Creatinine Ratio 8 L Glucose 117 H Calculated Osmolality 243 L Calcium 7.6 L Corrected Calcium 8.2 L Phosphorus 2.6 Magnesium 1.4 L Total Bilirubin 0.8 D AST 17 ALT 10 Alkaline Phosphatase 37 L Total Protein 5.0 L Albumin 3.2 L D Globulin 1.8 L Albumin/Globulin Ratio 1.8 01/08/25 01/08/25 01/08/25 06:10 07:44 10:10 WBC RBC Hgb Hct MCV MCH MCHC RDW Std Deviation Plt Count Neut % (Auto) Lymph % (Auto) [place] % (Auto) Eos % (Auto) Baso % (Auto) Neut # (Auto) Lymph # (Auto) [place] # (Auto) Eos # (Auto) Baso # (Auto) Immature Gran # (Auto) Absolute Nucleated RBC Immature Gran % Nucleated RBC % Sodium 120 L 120 L 120 L Potassium Chloride Carbon Dioxide Anion Gap BUN Creatinine Estim Creat Clear Calc eGFR BUN/Creatinine Ratio Glucose Calculated Osmolality Calcium Corrected Calcium Phosphorus Magnesium Total Bilirubin AST ALT Alkaline Phosphatase Total Protein Albumin Globulin Albumin/Globulin Ratio 01/08/25 01/08/25 01/08/25 12:10 13:50 16:05 WBC RBC Hgb Hct MCV MCH MCHC RDW Std Deviation Plt Count Neut % (Auto) Lymph % (Auto) [place] % (Auto) Eos % (Auto) Baso % (Auto) Neut # (Auto) Lymph # (Auto) [place] # (Auto) Eos # (Auto) Baso # (Auto) Immature Gran # (Auto) Absolute Nucleated RBC Immature Gran % Nucleated RBC % Sodium 121 L 120 L 119 L* Potassium Chloride Carbon Dioxide Anion Gap BUN Creatinine Estim Creat Clear Calc eGFR BUN/Creatinine Ratio Glucose Calculated Osmolality Calcium Corrected Calcium Phosphorus Magnesium Total Bilirubin AST ALT Alkaline Phosphatase Total Protein Albumin Globulin Albumin/Globulin Ratio Impressions Impression: Hematemesis hyponatremia Plan cancel EGD for today N.p.o. midnight tonight and endoscopy tomorrow if the sodium numbers improve ABG Interpretation ABG results: 01/07/25 05:22 VBG pH 7.49 VBG pCO2 27 L VBG pO2 124 H VBG Base Excess -1 Assessment & Plan Time Spent With Patient Time: Total time spent is greater than 50% in coordination of care (as documented) at patient's floor/unit and/or counseling patient:
[2025-01-08 18:49] LABS: Sodium 119 mMol/L (136-145)
[2025-01-08 21:05] LABS: Sodium 119 mMol/L (136-145)
[2025-01-08 23:03] LABS: Sodium 118 mMol/L (136-145)
[2025-01-09] VITALS (65 sets, daily range): BP systolic 94–161; BP diastolic 46–92; PULSE 49–68; RESP 7–100; TEMP 36.7–36.9; O2SAT 96–100; BMI 21.2
[2025-01-09 00:52] LABS: Sodium 119 mMol/L (136-145)
[2025-01-09 03:20] LABS: Sodium 119 mMol/L (136-145)
[2025-01-09] MEDS: DESMOPRESSIN ACETATE 4 MCG/ML VIAL IV (03:46)
[2025-01-09 06:30] LABS: Alanine Aminotransferase 10 U/L (10-49); Albumin, Serum 3.3 gm/dL (3.4-4.8); Albumin/Globulin Ratio 1.8 (1.2-2.2); Alkaline Phosphatase 39 U/L (46-116); Anion Gap 9 (7-16); Aspartate Amino Transferase 15 U/L (0-34); BUN/Creatinine Ratio 7 Ratio (12-20); Bilirubin,Total 0.6 mg/dL (0.3-1.2); Blood Urea Nitrogen 6 mg/dL (9-23); Calcium 7.9 mg/dL (8.3-10.6); Calcium (Corrected) 8.5 mg/dL (8.5-10.1); Carbon Dioxide 22.8 mMol/L (20.0-31.0); Chloride 87 mMol/L (98-107); Creatinine (Component) 0.9 mg/dL (0.6-1.3); Estimated Creatinine Clearance 74.0 mL/min (>60); Globulin 1.8 gm/dL (2.3-3.5); Glucose 93 mg/dL (74-106); Magnesium 1.8 mg/dL (1.6-2.6); Osmolality,Calculated 237 (275-295); Phosphorous 2.5 mg/dL (2.4-5.1); Potassium 3.2 mMol/L (3.4-5.1); Total Protein 5.1 gm/dL (5.7-8.2); eGFR > 60 See Note
[2025-01-09 06:33] LABS: Sodium 119 mMol/L (136-145)
[2025-01-09 07:15] LABS: Basophils # (Auto) 0.0 Thou/mm3 (0.0-0.2); Basophils % (Auto) 1 % (0-2.5); Eosinophils # (Auto) 0.4 Thou/mm3 (0.0-0.5); Eosinophils % (Auto) 5 % (0-10); Hematocrit 29.8 % (41.0-53.0); Hemoglobin 11.0 g/dL (13.5-16.0); Immature Granulocytes Auto 0.04 Thou/mm3 (0.00-0.00); Lymphocytes # (Auto) 1.9 Thou/mm3 (1.0-4.8); Lymphocytes % (Auto) 24 % (10-50); Mean Corpuscular HGB Conc 36.9 g/dl (31.0-37.0); Mean Corpuscular Hemoglobin 33.7 pg (25.0-35.0); Mean Corpuscular Volume 91 fL (80-100); Monocytes # (Auto) 0.6 Thou/mm3 (0.0-0.8); Monocytes % (Auto) 8 % (0-12); Neutrophils # (Auto) 4.9 Thou/mm3 (1.8-7.7); Neutrophils % (Auto) 62 % (37-80); Nucleated Red Blood Cell # 0.00 Thou/mm3 (0.00-0.00); Nucleated Red Blood Cell % 0 /100 WBC (0); Platelet Count 192 Thou/mm3 (140-440); RDW Standard Deviation 40.7 fL (35.1-43.9); Red Blood Count 3.26 Miln/mm3 (4.50-5.90); White Blood Count 7.9 Thou/mm3 (3.8-10.6)
[2025-01-09 07:43] LABS: Sodium 119 mMol/L (136-145)
[2025-01-09] MEDS: POTASSIUM CHL 10 mEq IVPB 10 MEQ/100 ML BAG 100 MEQ IV ×2 (07:57→08:57)
[2025-01-09] MEDS: cefTRIAXone/D5w 2gm 2 GM/50 ML BAG IV (08:07)
[2025-01-09 08:50] LABS: Sodium 119 mMol/L (136-145)
--- NOTE | 2025-01-09 09:13 | PD.RESPRO ---
Documentation for date of: 01/09/25 Subjective Subjective Interval history: Juan M Jasso is a 64 year old male with past medical history, per chart review, of HTN, GERD, BPH, T2DM, depression presents with of vomiting and confusion. Patient was found to have emesis over himself on arrival to ED. Patient is not able to answer questions appropriately as to why he is here or his history, despite being able to answer some orienting questions regarding person/place/time. Patient takes some time to answer. Later in the morning, reported cousin named Radha called and told the hospital that he lives with her and has been having worsening confusion over the last several days; said he started vomiting yesterday morning. Per Radha, his baseline mental status is usaully a&o x3 and ambulates himself. She reported he sees medical technologist generalist Dr. Driver who recommended decrease sodium and sugar intake which was followed strictly. She also denied him being recently sick, denied fever, chills. On admission his blood pressure 153/85, pulse 79, respirations 18, temperature 98.4 ?F, oxygen saturation 97% on room air initial labs showed WBC 13.5, sodium 112, potassium 4, chloride 80, creatinine 1.1 with unknown baseline, glucose 111, calculated osmolarity 226, lactic acid 1.4, magnesium 0.9, total bilirubin 1.8, troponin negative, lipase 30. Urinalysis showed glucose 4+, ketones 1+. Toxicology Is Negative. Head CT showed periventricular chronic small vessel ischemia and volume loss, no mass effect or hemorrhage. EKG showed sinus rhythm. Chest x-ray pending. He was given Zofran x 1 in the ED. Patient was admitted to ICU for further management of severe symptomatic hyponatremia. 01/08/2025: No acute events overnight. Patient seen and examined at bedside. Patient is more conversant and oriented. Patient is making good urine, 3.4L last 24 hours. Patient's vitals and labs were reviewed. Patient's sodium corrected to 122 overnight, currently 121. Have been alternating between checking sodium levels every 2 hours and throttling with desmopressin or D5W. Patient denies any headache, fever, chest pain, shortness of breath. 01/09/2025: No acute events overnight. Patient seen and examined at bedside with cousin. Patient continues to be more oriented. Patient is making good urine, 3.4L last 24 hours. Patient's vitals and labs were reviewed. Patient's sodium hovered around overnight and is currently 119. Have been alternating between checking sodium levels every 2 hours and throttling with desmopressin or D5W. Patient denies any headache, fever, chest pain, shortness of breath. Exam Vital Signs Temp Pulse Resp BP Pulse Ox O2 Del Method 98.9 F 54 L 18 117/63 99 Room Air 01/08/25 16:00 01/09/25 06:32 01/09/25 06:32 01/09/25 06:00 01/09/25 06:00 01/09/25 00:00 Narrative Exam General: Awake and in no acute distress, more conversant. HEENT: Normocephalic, atraumatic, mildly dry mucous membranes. Heart: Regular rate and rhythm, normal S1 and S2, no murmurs. Lungs: Clear to auscultation with no wheezing or crackles. Abdomen: Soft, nondistended, nontender, positive bowel sounds. ?No guarding or rebound tenderness. Neurologic: A&Ox3, not able to fully examine for neuro deficits, and patient able to move all 4 extremities. Extremities: No edema. Skin: No rash Objective Labs 01/10/25 04:22 01/10/25 11:13 Labs: Laboratory Results - last 24 hr 01/08/25 01/08/25 01/08/25 10:10 12:10 13:50 WBC RBC Hgb Hct MCV MCH MCHC RDW Std Deviation Plt Count Neut % (Auto) Lymph % (Auto) [place] % (Auto) Eos % (Auto) Baso % (Auto) Neut # (Auto) Lymph # (Auto) [place] # (Auto) Eos # (Auto) Baso # (Auto) Immature Gran # (Auto) Absolute Nucleated RBC Immature Gran % Nucleated RBC % Sodium 120 L 121 L 120 L Potassium Chloride Carbon Dioxide Anion Gap BUN Creatinine Estim Creat Clear Calc eGFR BUN/Creatinine Ratio Glucose Calculated Osmolality Calcium Corrected Calcium Phosphorus Magnesium Total Bilirubin AST ALT Alkaline Phosphatase Total Protein Albumin Globulin Albumin/Globulin Ratio 01/08/25 01/08/25 01/08/25 16:05 18:07 20:29 WBC RBC Hgb Hct MCV MCH MCHC RDW Std Deviation Plt Count Neut % (Auto) Lymph % (Auto) [place] % (Auto) Eos % (Auto) Baso % (Auto) Neut # (Auto) Lymph # (Auto) [place] # (Auto) Eos # (Auto) Baso # (Auto) Immature Gran # (Auto) Absolute Nucleated RBC Immature Gran % Nucleated RBC % Sodium 119 L* 119 L* 119 L* Potassium Chloride Carbon Dioxide Anion Gap BUN Creatinine Estim Creat Clear Calc eGFR BUN/Creatinine Ratio Glucose Calculated Osmolality Calcium Corrected Calcium Phosphorus Magnesium Total Bilirubin AST ALT Alkaline Phosphatase Total Protein Albumin Globulin Albumin/Globulin Ratio 01/08/25 01/09/25 01/09/25 22:31 00:27 02:24 WBC RBC Hgb Hct MCV MCH MCHC RDW Std Deviation Plt Count Neut % (Auto) Lymph % (Auto) [place] % (Auto) Eos % (Auto) Baso % (Auto) Neut # (Auto) Lymph # (Auto) [place] # (Auto) Eos # (Auto) Baso # (Auto) Immature Gran # (Auto) Absolute Nucleated RBC Immature Gran % Nucleated RBC % Sodium 118 L* 119 L* 119 L* Potassium Chloride Carbon Dioxide Anion Gap BUN Creatinine Estim Creat Clear Calc eGFR BUN/Creatinine Ratio Glucose Calculated Osmolality Calcium Corrected Calcium Phosphorus Magnesium Total Bilirubin AST ALT Alkaline Phosphatase Total Protein Albumin Globulin Albumin/Globulin Ratio 01/09/25 01/09/25 01/09/25 04:14 06:15 08:08 WBC 7.9 RBC 3.26 L Hgb 11.0 L Hct 29.8 L MCV 91 MCH 33.7 MCHC 36.9 RDW Std Deviation 40.7 Plt Count 192 Neut % (Auto) 62 Lymph % (Auto) 24 [place] % (Auto) 8 Eos % (Auto) 5 Baso % (Auto) 1 Neut # (Auto) 4.9 Lymph # (Auto) 1.9 [place] # (Auto) 0.6 Eos # (Auto) 0.4 Baso # (Auto) 0.0 Immature Gran # (Auto) 0.04 H Absolute Nucleated RBC 0.00 Immature Gran % 1 H Nucleated RBC % 0 Sodium 119 L* 119 L* 119 L* Potassium 3.2 L Chloride 87 L Carbon Dioxide 22.8 Anion Gap 9 BUN 6 L Creatinine 0.9 Estim Creat Clear Calc 74.0 eGFR > 60 BUN/Creatinine Ratio 7 L Glucose 93 Calculated Osmolality 237 L Calcium 7.9 L Corrected Calcium 8.5 Phosphorus 2.5 Magnesium 1.8 Total Bilirubin 0.6 AST 15 ALT 10 Alkaline Phosphatase 39 L Total Protein 5.1 L Albumin 3.3 L Globulin 1.8 L Albumin/Globulin Ratio 1.8 ABG Interpretation ABG results: 01/07/25 05:22 VBG pH 7.49 VBG pCO2 27 L VBG pO2 124 H VBG Base Excess -1 Quality Measures Quality Measures VTE prophylaxis Assessment & Plan Assessment Current Active Medications: Generic Name Dose Route Start Last Admin Trade Name Freq PRN Reason Stop Dose Admin Acetaminophen 650 mg 01/07/25 09:49 Acetaminophen Supp 650 Mg Supp DC 02/06/25 09:48 Q6HR PRN [id number] Desmopressin Acetate 4 mcg 01/08/25 09:00 01/09/25 03:46 Desmopressin Acetate 4 Mcg/Ml Vial IV 02/07/25 08:59 4 mcg Q6H LEIGHA Administration Protocol Dextrose 50 ml 01/07/25 09:48 Dextrose 50%-Water Inj 50 Ml Syringe IV 02/06/25 09:47 Q15MIN PRN BG <50 OR BG <70 & pt unresponsive Dextrose 25 ml 01/07/25 09:48 Dextrose 50%-Water Inj 50 Ml Syringe IV 02/06/25 09:47 Q15MIN PRN BG 50-70 responsive npo pt Glucagon 1 mg 01/07/25 09:47 Glucagon Inj 1 Mg Vial IM Q15MIN PRN BG <70, and no IV access Heparin Sodium (Porcine) 5,000 unit 01/07/25 10:00 01/07/25 10:16 Heparin Sod Inj 5000 Unit/Ml Vial SC 01/21/25 09:59 5,000 unit Q12HR LEIGHA Administration Ceftriaxone Sodium/Dextrose 2 gm in 50 mls @ 100 mls/hr 01/09/25 09:00 01/09/25 08:07 Rocephin/D5w 2gm IV 01/15/25 14:23 100 mls/hr QDAY LEIGHA Administration Dextrose 500 mls @ 75 mls/hr 01/08/25 16:48 01/08/25 23:07 D5w IV 02/07/25 16:47 0 mls/hr .[id number] LEIGHA Infusion Potassium Chloride 10 meq in 100 mls @ 100 mls/hr 01/09/25 07:23 01/09/25 08:57 Kcl Ivpb IV 01/09/25 11:22 100 mls/hr Q1H LEIGHA Administration Sodium Chloride 1,000 mls @ 60 mls/hr 01/09/25 08:52 Ns IV 02/08/25 08:51 .[id number] LEIGHA Insulin Human Lispro 0 unit 01/07/25 11:30 01/09/25 07:56 Insulin Lispro (Admelog) 1 Unit/0.01 Ml Unit SC 02/06/25 11:29 Not Given AC LEIGHA Protocol Ondansetron HCl 4 mg 01/07/25 09:46 01/08/25 20:28 Ondansetron Inj 2 Mg/Ml Inj 2 Ml IVP 02/06/25 09:45 4 mg Q6H PRN Administration NAUSEA OR VOMITING Protocol Pantoprazole Sodium 40 mg 01/07/25 21:00 01/09/25 08:06 Pantoprazole Inj 40 Mg Vial IVP 02/06/25 20:59 40 mg BID LEIGHA Administration Plan Juan M Jasso is a 64 year old male with past medical history, per chart review, of HTN, GERD, BPH, T2DM, depression presents with vomiting and confusion. Neprhology consulted for symptomatic hyponatremia. #symptomatic hypoosmolar hypochloremic hyponatremia, improving Likely pre-renal due to volume loss along with reported hx of strict low sodium diet. Per family member, worsening confusion last several days, vomiting since yesterday. Baseline is reportedly alert/oriented and ambulatory. Reported that he sees medical technologist generalist Dr. Driver who recommended decrease sodium and sugar intake which was followed strictly Patient presented with sodium 112, potassium 4, chloride 80, calculated osmolarity 226. Making good urine Gave desmopressin 2-4 mcg to prevent over correction; Free water 3 mg/kg/hr drops sodium 1 mEq/hr being another option. Plan: -Gave hypertonic saline 3% 30 cc/h with goal to achieve 24 hours increase in serum sodium of 4 to 6 mEq. -Hold desmopressin for now. -Sodium Check q2 hr. #Acute encephalopathy. #Nausea and vomiting, controlled. #Elevated total bilirubin. #Severe hypomagnesemia. #Concern for possible aspiration. #Leukocytosis. Above managed per primary team Patient plan of care was discussed with the attending physician, Dr. Iglesia Sanders MD PGY-1 Attending Provider Attestation/Addendum Patient seen and examined with resident physician Dr. Sanders. Note reviewed, agree with findings and recommendations. Patient currently seen in ICU. Admitted with severe symptomatic hyponatremia needing 3% hypertonic saline. Suspect hypovolemic hyponatremia in appropriate response of ADH. After 3% hypertonic saline's urine output started to improve. Urine output 2.4 L. Gave 1 dose of desmopressin to prevent overcorrection. Goal is 6 mEq in the next 24 hours rise in serum sodium to avoid osmotic demyelination syndrome. 01/09/2025 patient currently seen in ICU. Cousin at bedside. Resting comfortably alert awake and oriented. Appropriate with answering all the questions. sodium still remains at 119. ICU team decided to give 3% hypertonic saline until serum sodium is 126 which seems to be appropriate. Hold off on desmopressin. spoke to ICU team.
[2025-01-09] MEDS: SODIUM CHLORIDE 0.9% 1000 ML 1,000 ML 60 ML IV (09:40)
[2025-01-09] MEDS: POTASSIUM CHL 10 mEq IVPB 10 MEQ/100 ML BAG 75 MEQ IV ×2 (10:11→11:38)
[2025-01-09 11:09] LABS: Sodium 119 mMol/L (136-145)
[2025-01-09] MEDS: SODIUM CHLORIDE 0.9% 1000 ML 1,000 ML 100 ML IV (11:38)
[2025-01-09 12:19] LABS: Sodium 119 mMol/L (136-145)
[2025-01-09] MEDS: SODIUM CHLORIDE 3%(Hypertonic) 500 ML in PRE-MIXED 1 BAG 30 ML IV (14:25)
--- NOTE | 2025-01-09 15:29 | ESPR_ITS ---
<Statement entered by Mika Braxton MD - 01/09/25 17:41> Patient was seen and examined at bedside. I agree on the assessment and plan on this note as documented by resident Rober Ta PGY1. Patient seen and examined at bedside, over the course of last 24 hours patient sodium remained in the range of 119?120, we resumed patient on hypertonic saline, will continue to monitor sodium every 2 hours pending improvement, will consider downgrade once sodium is greater than 120. Patient is scheduled for EGD with gastroenterology today, post EGD per GI recommendations we will discontinue NG tube, patient is having bowel movements otherwise, pending speciation on the GNR bacteremia, will continue ceftriaxone 2 g daily. Patient will remain in ICU for now, will be a late downgrade likely if sodium improves, and post EGD. Case discussed with attending Dr. Rae. Mika Braxton MD PGY-2 Documentation for date of: 01/09/25 Subjective Subjective Interval history: Subjective Interval history: Patient is 64 years old male with past medical history of hypertension, type 2 diabetes, GERD, and previous incarceration of 8 years, marijuana use, and distant history of methamphetamine use who presented to the ED due to nausea and vomiting. Patient was brought by niece and is very confused and nonverbal, no other information is available. Per emergency room note patient presented covered with vomitus, was confused and nonverbal since initial presentation. He is minimally verbal and responds yes or no to some questions. Patient is able to tell his name but otherwise is disoriented. He appears to be well-groomed and does not appear to be homeless. On admission his blood pressure 153/85, pulse 79, respirations 18, temperature 98.4 ?F, oxygen saturation 97% on room air initial labs showed WBC 13.5, sodium 112, potassium 4, chloride 80, creatinine 1.1 with unknown baseline, glucose 111, calculated osmolarity 226, lactic acid 1.4, magnesium 0.9, total bilirubin 1.8, troponin negative, lipase 30. Urinalysis showed glucose 4+, ketones 1+. Toxicology Is Negative. Head CT showed periventricular chronic small vessel ischemia and volume loss, no mass effect or hemorrhage. EKG showed sinus rhythm. Chest x-ray pending. He was given Zofran x 1 in the ED. Patient was admitted to ICU for further management of severe symptomatic hyponatremia. Interval history 01/07/2025: Patient admitted to ICU on 3% sodium drip at 30 mL/h. Tracking sodium every hour, titrating sodium infusion appropriately, goal is to correct by increasing Na by 6 mmol/L up to 118 mmol/L over the first 24 hours of admission based on arrival sodium of 112 mmol/L, most recent sodium 116 mmol/L, paused infusion due to high urine output of approximately 125 mL/h. Nephro on board. Pending CT chest. NG tube inserted upon ICU admission. Patient had 2 episodes of coffee-ground emesis since ICU admission. NG tube suctioned 1 L of dark coffee-ground fluid. GI consulted. 01/08/2025: Continuing to manage sodium resuscitation. Patient overcorrected to sodium of 122 at 3 AM, 24 hours after admission. Goal was 118. Was given 2mcg of desmo and 0.5 of LR at the time, sodium returned to 121. Was given another 130 cc LR, sodium returned to 120. Patient put out 200 from the NG tube, and 70 of urine, was given 4mcg of desmo and restarted D5W drip at a rate of 100 mL/h, resulted sodium was 120. Patient switched to and now on D5W at 150 mL/h, latest sodium 121, continuing to monitor, sodium goal is 124 after 48 hours. Patient was hypomagnesemic at 1.4, given 4 of magnesium. Patient was hypokalemic at 3.2, given [address] chest was negative for pulmonary nodules. GI recommends EGD after sodium above 120. Nephro following. 01/09/2025: Patient has been receiving desmopressin every 6 hours. Sodium has been consistently at 119. Desmopressin was DC'd and normal saline started. Sodium was still 119, so the patient was restarted on 3% hypertonic saline at 30 mL/h. Continuing sodium checks every 2 hours. Pending EGD by GI. Nephro following. Will downgrade pending sodium is 120 or above. Sodium goal 122 over the next 24 hours. Exam Vital Signs Temp Pulse Resp BP Pulse Ox O2 Del Method 98.5 F 55 L 19 128/70 100 Room Air 01/09/25 12:00 01/09/25 15:00 01/09/25 15:00 01/09/25 15:00 01/09/25 15:00 01/09/25 00:00 Narrative Exam General: Awake and alert. Neurologic: GCS 15. Oriented, no gross neurological deficit, and patient able to move all 4 extremities. HEENT: Normocephalic, atraumatic, mucous membranes moist. Pupils reactive to light. Heart: Regular rate and rhythm, normal S1 and S2, no murmurs. Lungs: Clear to auscultation bilaterally with no wheezing or crackles. Abdomen: Firm, nondistended, nontender, positive bowel sounds. No guarding or rebound tenderness. Extremities: No edema. 2+ radial and dorsalis pedis pulses bilaterally. Skin: Warm. Dry. No rash or ecchymoses. Objective Labs 01/11/25 06:36 01/11/25 12:21 Labs: Laboratory Results - last 24 hr 01/08/25 01/08/25 01/08/25 16:05 18:07 20:29 WBC RBC Hgb Hct MCV MCH MCHC RDW Std Deviation Plt Count Neut % (Auto) Lymph % (Auto) [place] % (Auto) Eos % (Auto) Baso % (Auto) Neut # (Auto) Lymph # (Auto) [place] # (Auto) Eos # (Auto) Baso # (Auto) Immature Gran # (Auto) Absolute Nucleated RBC Immature Gran % Nucleated RBC % Sodium 119 L* 119 L* 119 L* Potassium Chloride Carbon Dioxide Anion Gap BUN Creatinine Estim Creat Clear Calc eGFR BUN/Creatinine Ratio Glucose Calculated Osmolality Calcium Corrected Calcium Phosphorus Magnesium Total Bilirubin AST ALT Alkaline Phosphatase Total Protein Albumin Globulin Albumin/Globulin Ratio 01/08/25 01/09/25 01/09/25 22:31 00:27 02:24 WBC RBC Hgb Hct MCV MCH MCHC RDW Std Deviation Plt Count Neut % (Auto) Lymph % (Auto) [place] % (Auto) Eos % (Auto) Baso % (Auto) Neut # (Auto) Lymph # (Auto) [place] # (Auto) Eos # (Auto) Baso # (Auto) Immature Gran # (Auto) Absolute Nucleated RBC Immature Gran % Nucleated RBC % Sodium 118 L* 119 L* 119 L* Potassium Chloride Carbon Dioxide Anion Gap BUN Creatinine Estim Creat Clear Calc eGFR BUN/Creatinine Ratio Glucose Calculated Osmolality Calcium Corrected Calcium Phosphorus Magnesium Total Bilirubin AST ALT Alkaline Phosphatase Total Protein Albumin Globulin Albumin/Globulin Ratio 01/09/25 01/09/25 01/09/25 04:14 06:15 08:08 WBC 7.9 RBC 3.26 L Hgb 11.0 L Hct 29.8 L MCV 91 MCH 33.7 MCHC 36.9 RDW Std Deviation 40.7 Plt Count 192 Neut % (Auto) 62 Lymph % (Auto) 24 [place] % (Auto) 8 Eos % (Auto) 5 Baso % (Auto) 1 Neut # (Auto) 4.9 Lymph # (Auto) 1.9 [place] # (Auto) 0.6 Eos # (Auto) 0.4 Baso # (Auto) 0.0 Immature Gran # (Auto) 0.04 H Absolute Nucleated RBC 0.00 Immature Gran % 1 H Nucleated RBC % 0 Sodium 119 L* 119 L* 119 L* Potassium 3.2 L Chloride 87 L Carbon Dioxide 22.8 Anion Gap 9 BUN 6 L Creatinine 0.9 Estim Creat Clear Calc 74.0 eGFR > 60 BUN/Creatinine Ratio 7 L Glucose 93 Calculated Osmolality 237 L Calcium 7.9 L Corrected Calcium 8.5 Phosphorus 2.5 Magnesium 1.8 Total Bilirubin 0.6 AST 15 ALT 10 Alkaline Phosphatase 39 L Total Protein 5.1 L Albumin 3.3 L Globulin 1.8 L Albumin/Globulin Ratio 1.8 01/09/25 01/09/25 10:29 11:45 WBC RBC Hgb Hct MCV MCH MCHC RDW Std Deviation Plt Count Neut % (Auto) Lymph % (Auto) [place] % (Auto) Eos % (Auto) Baso % (Auto) Neut # (Auto) Lymph # (Auto) [place] # (Auto) Eos # (Auto) Baso # (Auto) Immature Gran # (Auto) Absolute Nucleated RBC Immature Gran % Nucleated RBC % Sodium 119 L* 119 L* Potassium Chloride Carbon Dioxide Anion Gap BUN Creatinine Estim Creat Clear Calc eGFR BUN/Creatinine Ratio Glucose Calculated Osmolality Calcium Corrected Calcium Phosphorus Magnesium Total Bilirubin AST ALT Alkaline Phosphatase Total Protein Albumin Globulin Albumin/Globulin Ratio ABG Interpretation ABG results: 01/07/25 05:22 VBG pH 7.49 VBG pCO2 27 L VBG pO2 124 H VBG Base Excess -1 Quality Measures Quality Measures VTE prophylaxis Assessment & Plan Assessment Current Active Medications: Generic Name Dose Route Start Last Admin Trade Name Freq PRN Reason Stop Dose Admin Acetaminophen 650 mg 01/07/25 09:49 Acetaminophen Supp 650 Mg Supp SD 02/06/25 09:48 Q6HR PRN [id number] Dextrose 50 ml 07/24/25 09:48 Dextrose 50%-Water Inj 50 Ml Syringe IV 02/06/25 09:47 Q15MIN PRN BG <50 OR BG <70 & pt unresponsive Dextrose 25 ml 01/07/25 09:48 Dextrose 50%-Water Inj 50 Ml Syringe IV 02/06/25 09:47 Q15MIN PRN BG 50-70 responsive npo pt Glucagon 1 mg 01/07/25 09:47 Glucagon Inj 1 Mg Vial IM Q15MIN PRN BG <70, and no IV access Heparin Sodium (Porcine) 5,000 unit 01/07/25 10:00 01/07/25 10:16 Heparin Sod Inj 5000 Unit/Ml Vial SC 01/21/25 09:59 5,000 unit Q12HR LEIGHA Administration Ceftriaxone Sodium/Dextrose 2 gm in 50 mls @ 100 mls/hr 01/09/25 09:00 01/09/25 08:07 Rocephin/D5w 2gm IV 01/15/25 14:23 100 mls/hr QDAY LEIGHA Administration Sodium Chloride 500 ml/ IV 500 mls @ 30 mls/hr 01/09/25 13:06 01/09/25 14:25 Miscellaneous Supplies IV 01/10/25 05:45 30 mls/hr X1 ONE Administration Insulin Human Lispro 0 unit 01/07/25 11:30 01/09/25 12:55 Insulin Lispro (Admelog) 1 Unit/0.01 Ml Unit SC 02/06/25 11:29 Not Given AC LEIGHA Protocol Ondansetron HCl 4 mg 01/07/25 09:46 01/08/25 20:28 Ondansetron Inj 2 Mg/Ml Inj 2 Ml IVP 02/06/25 09:45 4 mg Q6H PRN Administration NAUSEA OR VOMITING Protocol Pantoprazole Sodium 40 mg 01/07/25 21:00 01/09/25 08:06 Pantoprazole Inj 40 Mg Vial IVP 02/06/25 20:59 40 mg BID LEIGHA Administration Plan Plan 64-year-old male with a past medical history of hypertension diabetes who came to the emergency department with altered mental status. Was found to be severely hyponatremic with a sodium of 112 mmol/L. Was admitted to the ICU for sodium resuscitation. Neuro: #Acute encephalopathy (Resolved) Patient presented with altered mental status and significant confusion, baseline is unknown as no medical history is available. No visible trauma to his head. CT scan of the head showed periventricular chronic small vessel ischemia and volume loss, no mass effect or hemorrhage. Patient's mentation significantly improved since admission, GCS 15 Plan: -Neurochecks every hour. -Continue following sodium. -Holding olanzapine. Cardiovascular: #History of Hypertension Per patient's family member the patient sees his PCP for hypertension, was encouraged to avoid salt and sugar Patient takes lisinopril at home Plan: -Holding home lisinopril Respiratory: #Previous lung nodule Chest CT in 2022 showed a 5 cm stellate nodule in the right middle lobe Chest CT on 01/07/2025 negative for any pulmonary nodule, had concern for small cell carcinoma versus squamous cell carcinoma in the presence of smoking history and hyponatremia possibly due to SIADH Plan: - Social support consult for smoking cessation Gastrointestinal: #Coffee-ground emesis Patient presented to the ED covered with vomitus, was given Zofran x 1 IV with resolution of symptoms. Patient had 2 episodes of coffee-ground emesis on 01/07/2025 after admission to the ICU NG tube clamped H&H stable Pending GI EGD once sodium is above 120 Plan: -Continue Protonix 40mg BID -Zofran as needed ordered. -Aspiration precautions. #Elevated total bilirubin (Resolved) On admission total bilirubin 1.8, patient does not endorse abdominal pain and abdomen is nontender on physical exam. Other LFTs are within normal limit. Direct bilirubin 0.6 on 01/07/2025 Liver ultrasound showed normal gallbladder and common bile duct KUB x-ray showed moderate stool throughout the colon, no free air Total bilirubin trended down to 0.8 Consider acute phase reaction Plan: Monitor total bilirubin on daily labs #Possible Small bowel obstruction X-ray abdomen showed moderate air distention of the stomach, moderate stool throughout the colon, no free air Total of 2 coffee-ground emesis episodes on 01/07/2025 Patient had 2 bowel movements in the past 24 hours Plan: -Follow-up GI EGD Renal: #Severe symptomatic hypoosmolar hypochloremic hyponatremia of unknown duration. #Possible SIADH Suspicion of SIADH due to history of lung nodule, repeated chest CT, unable to rule out lung cause of hyponatremia Patient presented with sodium 112, potassium 4, chloride 80, calculated osmolarity 226. Unknown duration of confusion, no prior labs on file. Will treat him as chronic symptomatic hyponatremia. Goal sodium 118 mmol/L 24 hrs. after presentation, result was 122 Goal sodium after 48 hours is 122, patient consistently at 119 with desmopressin every 6 hours morning of 01/09/2025 Consider home medication side effects, lisinopril and olanzapine as possible SIADH culprits Plan: -DC desmopressin, 3% hypertonic saline at 30 mL/h -Sodium check every 2 hours -Nephrology on board. #Severe hypomagnesemia (Resolved) Magnesium 1.8 01/09/2025 Endocrine: #History of diabetes Takes metformin and Farxiga at home A1C 5.6 Plan: -Continue holding these medications for now Infectious Disease: #Concern for possible aspiration, ruled out Patient presented to the ED covered in emesis, his WBCs were 13.5, chest x-ray pending. 2 episodes of coffee-ground emesis on 01/07/2025 Plan: -Aspiration precautions #GNR bacteremia Blood cultures positive for gram-negative rods Plan: -Continue Rocephin 2 g daily started on 01/08/2025 Hematology/Oncology: #Leukocytosis (Resolved) Diet: NPO. DVT prophylaxis: Holding heparin, SCDs. GI prophylaxis: Protonix. Code status: FULL CODE. Disposition: ICU. Correcting severe hyponatremia. Starting ceftriaxone for GNR bacteremia 01/08/2025. Sodium stable at 119, desmopressin stopped, restarted hypertonic 3% saline at 30, sodium checks every 2 hours, goal sodium 122 over next 24 hours, pending GI EGD, will downgrade when sodium 120 or above. Patient was seen and discussed with my attending physician Dr. Miguel Rae MD and my senior resident Dr. Mika Braxton MD PGY-2. Chano Ta DO PGY-1. Attending Provider Attestation/Addendum Patient seen and examined with the above resident, Chano Ta DO. I agree with the findings, assessment, and plan of care as documented except for any differences below. Patient doing well now with normalization of mentation back to baseline. Initial correction was faster than expected but able to contain in safe range over 48 hours. Stable in last 24 hours for prevention of ODS. Appreciate ongoing assistance by nephrology, desmopressin stopped now. Continue to push Na up though frequency of checks can start to be reduced after bolus of HTS. Free water restriction to stay in place. GNR bacteremia noted on rocephin, GI source most likely. Pulmonary nodule noted as possible etiology of SIADH, do not have means to biopsy at this time. Minimal follow up should include serial imaging to assess for growth and proceed with biopsy if amenable at that time. Patient with concern for GI blood loss with initial coffee ground emesis, now with Na consistently above 120 will plan for EGD with GI. Stable hemoglobin only on PPI. No need for octreotide base don history, no cirrhosis noted. Total critical care time: I personally spent 40 minutes for review of physiologic parameters, directing plan of care, coordination of care with other subspecialists, and counseling patient at the bedside. This is exclusive of time spent teaching housestaff or performing any separate billable procedures. Critical care services required for GI bleed, acute encephalopathy, and severe hyponatremia. Patient remained at significant risk of further morbidity and mortality warranting clos emonitoring and care only available in the ICU.
[2025-01-09 15:36] LABS: Sodium 120 mMol/L (136-145)
[2025-01-09 17:28] LABS: Sodium 120 mMol/L (136-145)
[2025-01-09 21:07] LABS: Sodium 120 mMol/L (136-145)
[2025-01-09 23:37] LABS: Sodium 123 mMol/L (136-145)
[2025-01-10] VITALS (36 sets, daily range): BP systolic 101–137; BP diastolic 51–88; PULSE 49–99; RESP 3–100; TEMP 36.1–36.9; O2SAT 98–100; BMI 21.5
[2025-01-10 02:38] LABS: Sodium 124 mMol/L (136-145)
[2025-01-10 05:53] LABS: Basophils # (Auto) 0.0 Thou/mm3 (0.0-0.2); Basophils % (Auto) 1 % (0-2.5); Eosinophils # (Auto) 0.6 Thou/mm3 (0.0-0.5); Eosinophils % (Auto) 9 % (0-10); Hematocrit 29.3 % (41.0-53.0); Hemoglobin 10.7 g/dL (13.5-16.0); Immature Granulocytes Auto 0.03 Thou/mm3 (0.00-0.00); Lymphocytes # (Auto) 1.9 Thou/mm3 (1.0-4.8); Lymphocytes % (Auto) 25 % (10-50); Mean Corpuscular HGB Conc 36.5 g/dl (31.0-37.0); Mean Corpuscular Hemoglobin 33.8 pg (25.0-35.0); Mean Corpuscular Volume 92 fL (80-100); Monocytes # (Auto) 0.6 Thou/mm3 (0.0-0.8); Monocytes % (Auto) 8 % (0-12); Neutrophils # (Auto) 4.3 Thou/mm3 (1.8-7.7); Neutrophils % (Auto) 58 % (37-80); Nucleated Red Blood Cell # 0.00 Thou/mm3 (0.00-0.00); Nucleated Red Blood Cell % 0 /100 WBC (0); Platelet Count 198 Thou/mm3 (140-440); RDW Standard Deviation 42.0 fL (35.1-43.9); Red Blood Count 3.17 Miln/mm3 (4.50-5.90); White Blood Count 7.4 Thou/mm3 (3.8-10.6)
[2025-01-10 06:25] LABS: Alanine Aminotransferase 9 U/L (10-49); Albumin, Serum 3.2 gm/dL (3.4-4.8); Albumin/Globulin Ratio 1.9 (1.2-2.2); Alkaline Phosphatase 41 U/L (46-116); Anion Gap 7 (7-16); Aspartate Amino Transferase 11 U/L (0-34); BUN/Creatinine Ratio 7 Ratio (12-20); Bilirubin,Total 0.5 mg/dL (0.3-1.2); Blood Urea Nitrogen 6 mg/dL (9-23); Calcium 8.2 mg/dL (8.3-10.6); Calcium (Corrected) 8.8 mg/dL (8.5-10.1); Carbon Dioxide 22.4 mMol/L (20.0-31.0); Chloride 95 mMol/L (98-107); Creatinine (Component) 0.9 mg/dL (0.6-1.3); Estimated Creatinine Clearance 74.0 mL/min (>60); Globulin 1.7 gm/dL (2.3-3.5); Glucose 114 mg/dL (74-106); Magnesium 1.6 mg/dL (1.6-2.6); Osmolality,Calculated 248 (275-295); Phosphorous 2.8 mg/dL (2.4-5.1); Potassium 3.4 mMol/L (3.4-5.1); Sodium 124 mMol/L (136-145); Total Protein 4.9 gm/dL (5.7-8.2); eGFR > 60 See Note
[2025-01-10] MEDS: Magnesium Sulfate 4 GM Ivpb 4 GM/50 ML BAG IV (06:46)
[2025-01-10] MEDS: cefTRIAXone/D5w 2gm 2 GM/50 ML BAG IV (08:26)
[2025-01-10] MEDS: SODIUM CHLORIDE 1 GM TABLET PO (08:30)
[2025-01-10 08:31] LABS: Sodium 125 mMol/L (136-145)
[2025-01-10] MEDS: FINASTERIDE 5 MG TABLET PO (10:45)
[2025-01-10] MEDS: TAMSULOSIN HCL 0.4 MG CAPSULE PO (10:45)
--- NOTE | 2025-01-10 10:47 | PD.RESPRO ---
Documentation for date of: 01/10/25 Subjective Subjective Interval history: Juan M Jasso is a 64 year old male with past medical history, per chart review, of HTN, GERD, BPH, T2DM, depression presents with of vomiting and confusion. Patient was found to have emesis over himself on arrival to ED. Patient is not able to answer questions appropriately as to why he is here or his history, despite being able to answer some orienting questions regarding person/place/time. Patient takes some time to answer. Later in the morning, reported cousin named Radha called and told the hospital that he lives with her and has been having worsening confusion over the last several days; said he started vomiting yesterday morning. Per Radha, his baseline mental status is usaully a&o x3 and ambulates himself. She reported he sees hebrew cantor Dr. Driver who recommended decrease sodium and sugar intake which was followed strictly. She also denied him being recently sick, denied fever, chills. On admission his blood pressure 153/85, pulse 79, respirations 18, temperature 98.4 ?F, oxygen saturation 97% on room air initial labs showed WBC 13.5, sodium 112, potassium 4, chloride 80, creatinine 1.1 with unknown baseline, glucose 111, calculated osmolarity 226, lactic acid 1.4, magnesium 0.9, total bilirubin 1.8, troponin negative, lipase 30. Urinalysis showed glucose 4+, ketones 1+. Toxicology Is Negative. Head CT showed periventricular chronic small vessel ischemia and volume loss, no mass effect or hemorrhage. EKG showed sinus rhythm. Chest x-ray pending. He was given Zofran x 1 in the ED. Patient was admitted to ICU for further management of severe symptomatic hyponatremia. 01/08/2025: No acute events overnight. Patient seen and examined at bedside. Patient is more conversant and oriented. Patient is making good urine, 3.4L last 24 hours. Patient's vitals and labs were reviewed. Patient's sodium corrected to 122 overnight, currently 121. Have been alternating between checking sodium levels every 2 hours and throttling with desmopressin or D5W. Patient denies any headache, fever, chest pain, shortness of breath. 01/09/2025: No acute events overnight. Patient seen and examined at bedside with cousin. Patient continues to be more oriented. Patient is making good urine, 3.4L last 24 hours. Patient's vitals and labs were reviewed. Patient's sodium hovered around overnight and is currently 119. Have been alternating between checking sodium levels every 2 hours and throttling with desmopressin or D5W. Patient denies any headache, fever, chest pain, shortness of breath. 01/10/2025 Patient seen and examined at bedside. Will be downgraded to inpatient team today. Alert and oriented at bedside. Kaur clamped, planned to be removed. No new complaints. Denies chest pain, SOB or fever. Na 125. Hypertonic saline not necessary at sodium level of 125, can start salt tablets. Exam Vital Signs Temp Pulse Resp BP Pulse Ox O2 Del Method O2 Flow Rate 97.0 F 69 18 137/75 H 100 Room Air 3 01/10/25 08:00 01/10/25 08:14 01/10/25 08:14 01/10/25 08:00 01/10/25 08:00 01/09/25 00:00 01/09/25 17:55 Narrative Exam General: Awake and in no acute distress, AOx3 HEENT: Normocephalic, atraumatic, moist mucous membranes. Heart: Regular rate and rhythm, normal S1 and S2, no murmurs. Lungs: Clear to auscultation with no wheezing or crackles. Abdomen: Soft, nondistended, nontender, positive bowel sounds. ?No guarding or rebound tenderness. Neurologic: CN II-XII grossly intact, no focal deficits, alert, following commands Extremities: No edema. Skin: No rash Objective Labs 01/10/25 04:22 01/10/25 11:13 Labs: Laboratory Results - last 24 hr 01/09/25 01/09/25 01/09/25 10:29 11:45 15:04 WBC RBC Hgb Hct MCV MCH MCHC RDW Std Deviation Plt Count Neut % (Auto) Lymph % (Auto) [place] % (Auto) Eos % (Auto) Baso % (Auto) Neut # (Auto) Lymph # (Auto) [place] # (Auto) Eos # (Auto) Baso # (Auto) Immature Gran # (Auto) Absolute Nucleated RBC Immature Gran % Nucleated RBC % Sodium 119 L* 119 L* 120 L Potassium Chloride Carbon Dioxide Anion Gap BUN Creatinine Estim Creat Clear Calc eGFR BUN/Creatinine Ratio Glucose Calculated Osmolality Calcium Corrected Calcium Phosphorus Magnesium Total Bilirubin AST ALT Alkaline Phosphatase Total Protein Albumin Globulin Albumin/Globulin Ratio 01/09/25 01/09/25 01/09/25 17:05 20:20 23:15 WBC RBC Hgb Hct MCV MCH MCHC RDW Std Deviation Plt Count Neut % (Auto) Lymph % (Auto) [place] % (Auto) Eos % (Auto) Baso % (Auto) Neut # (Auto) Lymph # (Auto) [place] # (Auto) Eos # (Auto) Baso # (Auto) Immature Gran # (Auto) Absolute Nucleated RBC Immature Gran % Nucleated RBC % Sodium 120 L 120 L 123 L Potassium Chloride Carbon Dioxide Anion Gap BUN Creatinine Estim Creat Clear Calc eGFR BUN/Creatinine Ratio Glucose Calculated Osmolality Calcium Corrected Calcium Phosphorus Magnesium Total Bilirubin AST ALT Alkaline Phosphatase Total Protein Albumin Globulin Albumin/Globulin Ratio 01/10/25 01/10/25 01/10/25 02:15 04:22 08:05 WBC 7.4 RBC 3.17 L Hgb 10.7 L Hct 29.3 L MCV 92 MCH 33.8 MCHC 36.5 RDW Std Deviation 42.0 Plt Count 198 Neut % (Auto) 58 Lymph % (Auto) 25 [place] % (Auto) 8 Eos % (Auto) 9 Baso % (Auto) 1 Neut # (Auto) 4.3 Lymph # (Auto) 1.9 [place] # (Auto) 0.6 Eos # (Auto) 0.6 H Baso # (Auto) 0.0 Immature Gran # (Auto) 0.03 H Absolute Nucleated RBC 0.00 Immature Gran % 0 Nucleated RBC % 0 Sodium 124 L 124 L 125 L Potassium 3.4 Chloride 95 L Carbon Dioxide 22.4 Anion Gap 7 BUN 6 L Creatinine 0.9 Estim Creat Clear Calc 74.0 eGFR > 60 BUN/Creatinine Ratio 7 L Glucose 114 H Calculated Osmolality 248 L Calcium 8.2 L Corrected Calcium 8.8 Phosphorus 2.8 Magnesium 1.6 Total Bilirubin 0.5 AST 11 ALT 9 L Alkaline Phosphatase 41 L Total Protein 4.9 L Albumin 3.2 L Globulin 1.7 L Albumin/Globulin Ratio 1.9 ABG Interpretation ABG results: 01/07/25 05:22 VBG pH 7.49 VBG pCO2 27 L VBG pO2 124 H VBG Base Excess -1 Quality Measures Quality Measures VTE prophylaxis Assessment & Plan Assessment Current Active Medications: Generic Name Dose Route Start Last Admin Trade Name Roblesq PRN Reason Stop Dose Admin Acetaminophen 650 mg 01/07/25 09:49 Acetaminophen Supp 650 Mg Supp [place] 02/06/25 09:48 Q6HR PRN [id number] Finasteride 5 mg 01/10/25 09:00 01/10/25 10:45 Finasteride 5 Mg Tablet PO 02/09/25 08:59 5 mg QDAY LEIGHA Administration Heparin Sodium (Porcine) 5,000 unit 01/07/25 10:00 01/07/25 10:16 Heparin Sod Inj 5000 Unit/Ml Vial SC 01/21/25 09:59 5,000 unit Q12HR LEIGHA Administration Ceftriaxone Sodium/Dextrose 2 gm in 50 mls @ 100 mls/hr 01/09/25 09:00 01/10/25 08:26 Rocephin/D5w 2gm IV 01/15/25 14:23 100 mls/hr QDAY LEIGHA Administration Ondansetron HCl 4 mg 01/07/25 09:46 01/08/25 20:28 Ondansetron Inj 2 Mg/Ml Inj 2 Ml IVP 02/06/25 09:45 4 mg Q6H PRN Administration NAUSEA OR VOMITING Protocol Pantoprazole Sodium 40 mg 01/07/25 21:00 01/10/25 08:26 Pantoprazole Inj 40 Mg Vial IVP 02/06/25 20:59 40 mg BID LEIGHA Administration Sodium Chloride 1 gm 01/10/25 09:00 01/10/25 08:30 Sodium Chloride 1 Gm Tablet PO 02/09/25 08:59 1 gm BID LEIGHA Administration Tamsulosin HCl 0.4 mg 01/10/25 09:00 01/10/25 10:45 Tamsulosin Hcl 0.4 Mg Capsule PO 02/09/25 08:59 0.4 mg QDAY LEIGHA Administration Plan Juan M Jasso is a 64 year old male with past medical history, per chart review, of HTN, GERD, BPH, T2DM, depression presents with vomiting and confusion. Neprhology consulted for symptomatic hyponatremia. #symptomatic hypoosmolar hypochloremic hyponatremia, improving Likely pre-renal due to volume loss along with reported hx of strict low sodium diet. Per family member, worsening confusion last several days, vomiting beginning day prior to admission. Baseline is alert/oriented and ambulatory. Reported that he sees hebrew cantor Dr. Driver who recommended decrease sodium and sugar intake which was followed strictly Patient presented with sodium 112, potassium 4, chloride 80, calculated osmolarity 226. Making good urine Previously gave desmopressin 2-4 mcg to prevent over correction; Free water 3 mg/kg/hr drops sodium 1 mEq/hr being another option. Sodium corrected to 125 today. Plan: -Stop Hypertonic saline 3% -Start salt tablets BID -Hold desmopressin for now. -Sodium Check q12 #Acute encephalopathy. #Nausea and vomiting, controlled. #Elevated total bilirubin. #Severe hypomagnesemia. #Concern for possible aspiration. #Leukocytosis. Above managed per primary team Patient plan of care was discussed with the attending physician, Dr. Iglesia Pelaez, DO Internal Medicine PGY-1 Attending Provider Attestation/Addendum Patient seen and examined with resident physician Dr. Pelaez. Note reviewed, agree with findings and recommendations. Patient currently seen in ICU. Admitted with severe symptomatic hyponatremia needing 3% hypertonic saline. Suspect hypovolemic hyponatremia in appropriate response of ADH. After 3% hypertonic saline's urine output started to improve. Urine output 2.4 L. Gave 1 dose of desmopressin to prevent overcorrection. Goal is 6 mEq in the next 24 hours rise in serum sodium to avoid osmotic demyelination syndrome. 01/09/2025 patient currently seen in ICU. Cousin at bedside. Resting comfortably alert awake and oriented. Appropriate with answering all the questions. sodium still remains at 119. ICU team decided to give 3% hypertonic saline until serum sodium is 126 which seems to be appropriate. Hold off on desmopressin. spoke to ICU team. 01/10/2025 patient currently seen in telemetry. Resting comfortably. More alert and awake. Sodium 125. Added salt tablets. If sodium level 138-can be discharged in am.
[2025-01-10 10:54] LABS: HIV (1&2) Antibody Rapid Non-Reactive
[2025-01-10 11:42] LABS: Sodium 125 mMol/L (136-145)
[2025-01-10 14:13] LABS: Sodium 125 mMol/L (136-145)
--- NOTE | 2025-01-10 14:43 | PD.RESPRO ---
Documentation for date of: 01/10/25 Subjective Subjective Interval history: Patient is a 64 year old male with a past medical history of diabetes mellitus type 2, non insulin dependent, Hypertension, smoking history, BPH w/ urinary obstruction on tamsulosin, and history of GERD, who presented to the emergency room with chief complain of nausea and vomiting and altered, subsequently found sodium level of 112/110 and admitted directly into the ICU for severe symptomatic hyponatremia on hypertonic saline at 30 cc per hour. Nephrology consulted. Patient was downgraded on 01/10/2025 for further management of hyponatremia, currently Na 124. Continue to monitor Na, now >24 hours. Patient subsequently of hemetemesis, EGD, noted to have esophageal ulcers in lower 1/3 of the esophagus and gastritis. Avoid NSAIDs. and Protonix 40 mg BID. Nephrology consulted, Salt Tablets 1 gram BID. Last Na 130, discontinued sodium checks after 20:00 hours. Salt tablets-->reduced to 1 gram Qday. Exam Vital Signs Temp Pulse Resp BP Pulse Ox O2 Del Method O2 Flow Rate 98.1 F 59 L 18 117/65 98 Room Air 3 01/10/25 12:00 01/10/25 14:00 01/10/25 14:00 01/10/25 14:00 01/10/25 14:00 01/10/25 12:00 01/09/25 17:55 Narrative Exam General Appearance: Alert & Oriented X3, w who is lying in thin male in no acute distress HEENT: Skull symmetrical and atraumatic. Conjunctivae pale pink and moist. Pupils equal, round, reactive to light and accommodation (PERRL). External ear without lesion or discharge. Straight, nares patient, mucosa pink, no discharge. Cardio: Normal Rate and Rhythm with S1 and S2 heart sounds. No murmurs or extra heart sounds auscultated. No bruits on carotid auscultation. No peripheral edema or cyanosis. Lungs: Symmetric with good expansion. Chest and back non-tender. Breath sounds vesicular without crackles, wheezing or rhonchi Abdomen: Non-tender, Non-distended, Normal Reactive Bowel Sounds Neuro: Yes Alert, Yes cooperative, Yes oriented to person, Yes place, and Yes time. Speech clear. CN grossly intact. Upper motor strength 5/5 and Lower motor strength 5/5. Sensation intact. Objective Labs 01/11/25 06:36 07/27/25 20:14 Labs: Laboratory Results - last 24 hr 01/09/25 01/09/25 01/09/25 15:04 17:05 20:20 WBC RBC Hgb Hct MCV MCH MCHC RDW Std Deviation Plt Count Neut % (Auto) Lymph % (Auto) [place] % (Auto) Eos % (Auto) Baso % (Auto) Neut # (Auto) Lymph # (Auto) [place] # (Auto) Eos # (Auto) Baso # (Auto) Immature Gran # (Auto) Absolute Nucleated RBC Immature Gran % Nucleated RBC % Sodium 120 L 120 L 120 L Potassium Chloride Carbon Dioxide Anion Gap BUN Creatinine Estim Creat Clear Calc eGFR BUN/Creatinine Ratio Glucose Calculated Osmolality Calcium Corrected Calcium Phosphorus Magnesium Total Bilirubin AST ALT Alkaline Phosphatase Total Protein Albumin Globulin Albumin/Globulin Ratio HIV 1&2 Antibody Rapid 01/09/25 01/10/25 01/10/25 23:15 02:15 04:22 WBC 7.4 RBC 3.17 L Hgb 10.7 L Hct 29.3 L MCV 92 MCH 33.8 MCHC 36.5 RDW Std Deviation 42.0 Plt Count 198 Neut % (Auto) 58 Lymph % (Auto) 25 [place] % (Auto) 8 Eos % (Auto) 9 Baso % (Auto) 1 Neut # (Auto) 4.3 Lymph # (Auto) 1.9 [place] # (Auto) 0.6 Eos # (Auto) 0.6 H Baso # (Auto) 0.0 Immature Gran # (Auto) 0.03 H Absolute Nucleated RBC 0.00 Immature Gran % 0 Nucleated RBC % 0 Sodium 123 L 124 L 124 L Potassium 3.4 Chloride 95 L Carbon Dioxide 22.4 Anion Gap 7 BUN 6 L Creatinine 0.9 Estim Creat Clear Calc 74.0 eGFR > 60 BUN/Creatinine Ratio 7 L Glucose 114 H Calculated Osmolality 248 L Calcium 8.2 L Corrected Calcium 8.8 Phosphorus 2.8 Magnesium 1.6 Total Bilirubin 0.5 AST 11 ALT 9 L Alkaline Phosphatase 41 L Total Protein 4.9 L Albumin 3.2 L Globulin 1.7 L Albumin/Globulin Ratio 1.9 HIV 1&2 Antibody Rapid 01/10/25 01/10/25 01/10/25 08:05 09:48 11:13 WBC RBC Hgb Hct MCV MCH MCHC RDW Std Deviation Plt Count Neut % (Auto) Lymph % (Auto) [place] % (Auto) Eos % (Auto) Baso % (Auto) Neut # (Auto) Lymph # (Auto) [place] # (Auto) Eos # (Auto) Baso # (Auto) Immature Gran # (Auto) Absolute Nucleated RBC Immature Gran % Nucleated RBC % Sodium 125 L 125 L Potassium Chloride Carbon Dioxide Anion Gap BUN Creatinine Estim Creat Clear Calc eGFR BUN/Creatinine Ratio Glucose Calculated Osmolality Calcium Corrected Calcium Phosphorus Magnesium Total Bilirubin AST ALT Alkaline Phosphatase Total Protein Albumin Globulin Albumin/Globulin Ratio HIV 1&2 Antibody Rapid Non-Reactive 01/10/25 13:40 WBC RBC Hgb Hct MCV MCH MCHC RDW Std Deviation Plt Count Neut % (Auto) Lymph % (Auto) [place] % (Auto) Eos % (Auto) Baso % (Auto) Neut # (Auto) Lymph # (Auto) [place] # (Auto) Eos # (Auto) Baso # (Auto) Immature Gran # (Auto) Absolute Nucleated RBC Immature Gran % Nucleated RBC % Sodium 125 L Potassium Chloride Carbon Dioxide Anion Gap BUN Creatinine Estim Creat Clear Calc eGFR BUN/Creatinine Ratio Glucose Calculated Osmolality Calcium Corrected Calcium Phosphorus Magnesium Total Bilirubin AST ALT Alkaline Phosphatase Total Protein Albumin Globulin Albumin/Globulin Ratio HIV 1&2 Antibody Rapid ABG Interpretation ABG results: 01/07/25 05:22 VBG pH 7.49 VBG pCO2 27 L VBG pO2 124 H VBG Base Excess -1 Quality Measures Quality Measures VTE prophylaxis Assessment & Plan Assessment Current Active Medications: Generic Name Dose Route Start Last Admin Trade Name Freq PRN Reason Stop Dose Admin Acetaminophen 650 mg 01/07/25 09:49 Acetaminophen Supp 650 Mg Supp [place] 02/06/25 09:48 Q6HR PRN [id number] Finasteride 5 mg 01/10/25 09:00 01/10/25 10:45 Finasteride 5 Mg Tablet PO 02/09/25 08:59 5 mg QDAY LEIGHA Administration Heparin Sodium (Porcine) 5,000 unit 01/07/25 10:00 01/07/25 10:16 Heparin Sod Inj 5000 Unit/Ml Vial SC 01/21/25 09:59 5,000 unit Q12HR LEIGHA Administration Ondansetron HCl 4 mg 01/07/25 09:46 01/08/25 20:28 Ondansetron Inj 2 Mg/Ml Inj 2 Ml IVP 02/06/25 09:45 4 mg Q6H PRN Administration NAUSEA OR VOMITING Protocol Pantoprazole Sodium 40 mg 01/07/25 21:00 01/10/25 08:26 Pantoprazole Inj 40 Mg Vial IVP 02/06/25 20:59 40 mg BID LEIGHA Administration Sodium Chloride 1 gm 01/10/25 09:00 01/10/25 08:30 Sodium Chloride 1 Gm Tablet PO 02/09/25 08:59 1 gm BID LEIGHA Administration Tamsulosin HCl 0.4 mg 01/10/25 09:00 01/10/25 10:45 Tamsulosin Hcl 0.4 Mg Capsule PO 02/09/25 08:59 0.4 mg QDAY LEIGHA Administration Plan Patient is a 64 year old male with a past medical history of diabetes mellitus type 2, non insulin dependent, Hypertension, smoking history, BPH w/ urinary obstruction on tamsulosin, and history of GERD who was admitted directly into the ICU with for severe symptomatic hyponatremia. #Hypovolemic, severe symptomatic hyponatremic, hypoosmolar, improving #Mild hyponatremia Patient presented with severe hypovolemic hyponatremia hypoosmolar with a sodium of 110 and osmolarity of 221 on admission. Hyponatremia now out of the 24-hour window, last repeat sodium 125--> 130. Given low osmolarity and hypovolemic with a urine sodium of greater than 20 likely secondary to diuretics loss versus salt wasting versus RTA disease which cannot be ruled out given metabolic acidosis none anion gap. Other causes secondary to extra renal losses such as vomiting or diarrhea cannot be ruled out given history of hematemesis. Renal ultrasound (07/20/2021): Mild bilateral renal parenchymal scar formation, right renal cortical thinning Diagnostics Urine sodium 47.3, potassium 27, urine creatinine 43 Plan -Last sodium check 20: 00, DC sodium checks afterwards - Salt tablets 1 mg twice daily--> 1 mg daily - Continue to monitor for any neurological changes #Esophageal ulcers #Hematemesis #Upper GI bleed #Normocytic anemia Patient was found to have many linear ulcers on EGD, no history of steriod use. Patient need to follow up with PCP to rule out H.pylori, but less likely given not duodenal. Avoid alcohol use or NSAIDs. Occult stool positive EGD findings: Esophageal ulcers and gastritis Plan - Protonix 40 mg twice daily and avoid NSAIDs as outpatient - Continue to monitor for acute blood loss anemia -HIV panel - Transfuse if hemoglobin less than 7 -Outpatient iron panel follow up and CBC - Gastroenterology consulted, Dr. Storey, appreciate recommendations #Leukocytosis Patient on admission presented with mild leukocytosis of 13.5. LIkely reactive vs infectious given ulcers vs infectious less likely as no active signs of pneumonia or positive UA. no fevers. 1/2 blood culters Klebsiella Plan -D/C antibiotics -continue to monitor for signs of pyrexia. #Diabetes mellitus type II, [id number] Patient has a past medical history of diabetes mellitus with an A1c of 5.6 (01/07/2025). Home medication includes Farxiga and metformin 500 p.o. daily. Patient has had glucose readings under 180. Plan - Holding off sliding scale, consider starting if fasting glucose starts increasing - Continue to monitor #Hyperlipidemia Patient has a past medical history of hyperlipidemia with atorvastatin 20 mg p.o. at bedtime. Plan -Atorvastatin 20 mg p.o. at bedtime -Lipid panel a.m. #Hypertension Past medical history of hypertension with home Lisinopril Plan -Holding off Lisinopril as paitent has been normal tensive & concern for hyponatremia #BPH Past medical history of BPH with obstructive uropathy. Patient's home medication includes Flomax and finasteride. Plan -Resume home medication of Flomax 0.4 mg daily and finasteride 5 mg p.o. daily. #Metabolic acidosis, none anion gap, resolved #Hyperbilirubinemia, resolved Health Maintenance: Disp: Pt is currently admitted to floors for further management of severe hyponatremia, awaiting improved Na on salt tablets FEN: regular diet DVT:compression device Code: Full code - The patient's plan was discussed with attending Dr. Dee Borja MD PGY2 Internal Medicine Attending Provider Attestation/Addendum I have examined the patient, reviewed labs and imaging findings, discussed the case with the resident(s), and reviewed entered orders. I agree with the plan of care as outlined in this note, with these additional summaries/recommendations: Patient seen at bedside. No acute overnight events. Patient was downgraded from the intensive care unit this morning for symptomatic hyponatremia. He appears trending towards baseline but likely has some underlying developmental delay. Hyponatremia most likely secondary to medications. Doubt psychogenic polydipsia although patient does report drinking 6 large cups of water a day. Status post hypertonic saline. Sodium 125 this morning. We will monitor for overcorrection. Nephrology following and patient transition to sodium chloride tablets. Patient was also found to have positive fecal occult blood test and underwent EGD that revealed esophageal ulcers and gastritis. Continue proton pump inhibitor. 1 of 2 blood cultures grew Klebsiella ozaenae and I suspect this is contamination. We will monitor patient clinically. Patient updated on the plan and in agreement. All questions answered to satisfaction. Please see residents note for additional details and management. Dr. Dee MD
[2025-01-10 17:43] LABS: Sodium 130 mMol/L (136-145)
--- NOTE | 2025-01-10 19:39 | PD.IMPROG ---
Documentation for date of: 01/10/25 Subjective Subjective Interval history: Patient evaluated hemoglobin hematocrit 10.7 and 29.3 Upper endoscopy showed multiple distal esophageal ulcers Exam Vital Signs Temp Pulse Resp BP Pulse Ox O2 Del Method O2 Flow Rate 97.2 F 65 18 114/70 98 Room Air 3 01/10/25 15:58 01/10/25 19:04 01/10/25 19:04 01/10/25 15:58 01/10/25 15:58 01/10/25 15:58 01/09/25 17:55 Objective Labs 01/10/25 04:22 01/10/25 17:13 Labs: Laboratory Results - last 24 hr 01/09/25 01/09/25 01/10/25 20:20 23:15 02:15 WBC RBC Hgb Hct MCV MCH MCHC RDW Std Deviation Plt Count Neut % (Auto) Lymph % (Auto) [place] % (Auto) Eos % (Auto) Baso % (Auto) Neut # (Auto) Lymph # (Auto) [place] # (Auto) Eos # (Auto) Baso # (Auto) Immature Gran # (Auto) Absolute Nucleated RBC Immature Gran % Nucleated RBC % Sodium 120 L 123 L 124 L Potassium Chloride Carbon Dioxide Anion Gap BUN Creatinine Estim Creat Clear Calc eGFR BUN/Creatinine Ratio Glucose Calculated Osmolality Calcium Corrected Calcium Phosphorus Magnesium Total Bilirubin AST ALT Alkaline Phosphatase Total Protein Albumin Globulin Albumin/Globulin Ratio HIV 1&2 Antibody Rapid 01/10/25 01/10/25 01/10/25 04:22 08:05 09:48 WBC 7.4 RBC 3.17 L Hgb 10.7 L Hct 29.3 L MCV 92 MCH 33.8 MCHC 36.5 RDW Std Deviation 42.0 Plt Count 198 Neut % (Auto) 58 Lymph % (Auto) 25 [place] % (Auto) 8 Eos % (Auto) 9 Baso % (Auto) 1 Neut # (Auto) 4.3 Lymph # (Auto) 1.9 [place] # (Auto) 0.6 Eos # (Auto) 0.6 H Baso # (Auto) 0.0 Immature Gran # (Auto) 0.03 H Absolute Nucleated RBC 0.00 Immature Gran % 0 Nucleated RBC % 0 Sodium 124 L 125 L Potassium 3.4 Chloride 95 L Carbon Dioxide 22.4 Anion Gap 7 BUN 6 L Creatinine 0.9 Estim Creat Clear Calc 74.0 eGFR > 60 BUN/Creatinine Ratio 7 L Glucose 114 H Calculated Osmolality 248 L Calcium 8.2 L Corrected Calcium 8.8 Phosphorus 2.8 Magnesium 1.6 Total Bilirubin 0.5 AST 11 ALT 9 L Alkaline Phosphatase 41 L Total Protein 4.9 L Albumin 3.2 L Globulin 1.7 L Albumin/Globulin Ratio 1.9 HIV 1&2 Antibody Rapid Non-Reactive 01/10/25 01/10/25 01/10/25 11:13 13:40 17:13 WBC RBC Hgb Hct MCV MCH MCHC RDW Std Deviation Plt Count Neut % (Auto) Lymph % (Auto) [place] % (Auto) Eos % (Auto) Baso % (Auto) Neut # (Auto) Lymph # (Auto) [place] # (Auto) Eos # (Auto) Baso # (Auto) Immature Gran # (Auto) Absolute Nucleated RBC Immature Gran % Nucleated RBC % Sodium 125 L 125 L 130 L Potassium Chloride Carbon Dioxide Anion Gap BUN Creatinine Estim Creat Clear Calc eGFR BUN/Creatinine Ratio Glucose Calculated Osmolality Calcium Corrected Calcium Phosphorus Magnesium Total Bilirubin AST ALT Alkaline Phosphatase Total Protein Albumin Globulin Albumin/Globulin Ratio HIV 1&2 Antibody Rapid Impressions Impression: # distal esophageal ulcers continue to monitor CBC ABG Interpretation ABG results: 01/07/25 05:22 VBG pH 7.49 VBG pCO2 27 L VBG pO2 124 H VBG Base Excess -1 Assessment & Plan Time Spent With Patient Time: Total time spent is greater than 50% in coordination of care (as documented) at patient's floor/unit and/or counseling patient:
[2025-01-10 20:33] LABS: Sodium 131 mMol/L (136-145)
[2025-01-10] MEDS: ATORVASTATIN CALCIUM 20 MG TABLET PO (20:40)
[2025-01-11] VITALS: BP 123/60; PULSE 70; RESP 18; TEMP 36.8; O2SAT 93
[2025-01-11 04:00] VITALS: BP 119/61; PULSE 66; PULSE 73; RESP 13; TEMP 36.3; O2SAT 100
[2025-01-11 06:00] VITALS: BMI 21.5
[2025-01-11 07:10] LABS: Basophils # (Auto) 0.0 Thou/mm3 (0.0-0.2); Basophils % (Auto) 1 % (0-2.5); Eosinophils # (Auto) 0.6 Thou/mm3 (0.0-0.5); Eosinophils % (Auto) 7 % (0-10); Hematocrit 32.9 % (41.0-53.0); Hemoglobin 11.9 g/dL (13.5-16.0); Immature Granulocytes Auto 0.04 Thou/mm3 (0.00-0.00); Lymphocytes # (Auto) 1.8 Thou/mm3 (1.0-4.8); Lymphocytes % (Auto) 24 % (10-50); Mean Corpuscular HGB Conc 36.2 g/dl (31.0-37.0); Mean Corpuscular Hemoglobin 33.4 pg (25.0-35.0); Mean Corpuscular Volume 92 fL (80-100); Monocytes # (Auto) 0.7 Thou/mm3 (0.0-0.8); Monocytes % (Auto) 9 % (0-12); Neutrophils # (Auto) 4.5 Thou/mm3 (1.8-7.7); Neutrophils % (Auto) 59 % (37-80); Nucleated Red Blood Cell # 0.00 Thou/mm3 (0.00-0.00); Nucleated Red Blood Cell % 0 /100 WBC (0); Platelet Count 239 Thou/mm3 (140-440); RDW Standard Deviation 43.5 fL (35.1-43.9); Red Blood Count 3.56 Miln/mm3 (4.50-5.90); White Blood Count 7.7 Thou/mm3 (3.8-10.6)
[2025-01-11 07:46] LABS: Alanine Aminotransferase 10 U/L (10-49); Albumin, Serum 3.4 gm/dL (3.4-4.8); Albumin/Globulin Ratio 1.8 (1.2-2.2); Alkaline Phosphatase 43 U/L (46-116); Anion Gap 10 (7-16); Aspartate Amino Transferase 13 U/L (0-34); BUN/Creatinine Ratio 5 Ratio (12-20); Bilirubin,Total 0.4 mg/dL (0.3-1.2); Blood Urea Nitrogen 5 mg/dL (9-23); Calcium 8.5 mg/dL (8.3-10.6); Calcium (Corrected) 9.0 mg/dL (8.5-10.1); Carbon Dioxide 21.8 mMol/L (20.0-31.0); Cardiac Risk Estimate 2.4 RATIO (4.0-6.7); Chloride 104 mMol/L (98-107); Cholesterol 108 mg/dL (132-200); Creatinine (Component) 1.0 mg/dL (0.6-1.3); Estimated Creatinine Clearance 67.7 mL/min (>60); Globulin 1.9 gm/dL (2.3-3.5); Glucose 106 mg/dL (74-106); HDL Cholesterol 45 mg/dL (40-60); LDL Cholesterol,Calculated 50 mg/dL (0-130); Magnesium 1.4 mg/dL (1.6-2.6); Osmolality,Calculated 269 (275-295); Phosphorous 2.6 mg/dL (2.4-5.1); Potassium 4.3 mMol/L (3.4-5.1); Sodium 136 mMol/L (136-145); Total Protein 5.3 gm/dL (5.7-8.2); Triglycerides 65 mg/dL (30-150); eGFR > 60 See Note
[2025-01-11 08:00] VITALS: BP 127/69; PULSE 65; PULSE 80; RESP 18; TEMP 36.1; O2SAT 99
[2025-01-11] MEDS: TAMSULOSIN HCL 0.4 MG CAPSULE PO (08:59)
[2025-01-11] MEDS: SODIUM CHLORIDE 1 GM TABLET PO (09:00)
[2025-01-11] MEDS: FINASTERIDE 5 MG TABLET PO (09:00)
--- NOTE | 2025-01-11 09:15 | PD.RESPRO ---
Documentation for date of: 01/11/25 Subjective Subjective Interval history: Juan M Jasso is a 64 year old male with past medical history, per chart review, of HTN, GERD, BPH, T2DM, depression presents with of vomiting and confusion. Patient was found to have emesis over himself on arrival to ED. Patient is not able to answer questions appropriately as to why he is here or his history, despite being able to answer some orienting questions regarding person/place/time. Patient takes some time to answer. Later in the morning, reported cousin named Radha called and told the hospital that he lives with her and has been having worsening confusion over the last several days; said he started vomiting yesterday morning. Per Radha, his baseline mental status is usaully a&o x3 and ambulates himself. She reported he sees steward/stewardess banquet Dr. Driver who recommended decrease sodium and sugar intake which was followed strictly. She also denied him being recently sick, denied fever, chills. On admission his blood pressure 153/85, pulse 79, respirations 18, temperature 98.4 ?F, oxygen saturation 97% on room air initial labs showed WBC 13.5, sodium 112, potassium 4, chloride 80, creatinine 1.1 with unknown baseline, glucose 111, calculated osmolarity 226, lactic acid 1.4, magnesium 0.9, total bilirubin 1.8, troponin negative, lipase 30. Urinalysis showed glucose 4+, ketones 1+. Toxicology Is Negative. Head CT showed periventricular chronic small vessel ischemia and volume loss, no mass effect or hemorrhage. EKG showed sinus rhythm. Chest x-ray pending. He was given Zofran x 1 in the ED. Patient was admitted to ICU for further management of severe symptomatic hyponatremia. 01/08/2025: No acute events overnight. Patient seen and examined at bedside. Patient is more conversant and oriented. Patient is making good urine, 3.4L last 24 hours. Patient's vitals and labs were reviewed. Patient's sodium corrected to 122 overnight, currently 121. Have been alternating between checking sodium levels every 2 hours and throttling with desmopressin or D5W. Patient denies any headache, fever, chest pain, shortness of breath. 01/09/2025: No acute events overnight. Patient seen and examined at bedside with cousin. Patient continues to be more oriented. Patient is making good urine, 3.4L last 24 hours. Patient's vitals and labs were reviewed. Patient's sodium hovered around overnight and is currently 119. Have been alternating between checking sodium levels every 2 hours and throttling with desmopressin or D5W. Patient denies any headache, fever, chest pain, shortness of breath. 01/10/2025 Patient seen and examined at bedside. Will be downgraded to inpatient team today. Alert and oriented at bedside. Kaur clamped, planned to be removed. No new complaints. Denies chest pain, SOB or fever. Na 125. Hypertonic saline not necessary at sodium level of 125, can start salt tablets. 01/11/2025 Patient seen and examined on floors. Patient's sodium continues to improve, at 131 this morning; continues to be given salt tablets. No new complaints. Denies chest pain, SOB or fever. Exam Vital Signs Temp Pulse Resp BP Pulse Ox O2 Del Method O2 Flow Rate 97.0 F 65 18 127/69 99 Room Air 3 01/11/25 08:00 01/11/25 08:00 01/11/25 08:00 01/11/25 08:00 01/11/25 08:00 01/11/25 08:00 01/09/25 17:55 Narrative Exam General: Awake and in no acute distress, AOx3 HEENT: Normocephalic, atraumatic, moist mucous membranes. Heart: Regular rate and rhythm, normal S1 and S2, no murmurs. Lungs: Clear to auscultation with no wheezing or crackles. Abdomen: Soft, nondistended, nontender, positive bowel sounds. ?No guarding or rebound tenderness. Neurologic: CN II-XII grossly intact, no focal deficits, alert, following commands Extremities: No edema. Skin: No rash Objective Labs 01/11/25 06:36 01/11/25 12:21 Labs: Laboratory Results - last 24 hr 01/10/25 01/10/25 01/10/25 09:48 11:13 13:40 WBC RBC Hgb Hct MCV MCH MCHC RDW Std Deviation Plt Count Neut % (Auto) Lymph % (Auto) [place] % (Auto) Eos % (Auto) Baso % (Auto) Neut # (Auto) Lymph # (Auto) [place] # (Auto) Eos # (Auto) Baso # (Auto) Immature Gran # (Auto) Absolute Nucleated RBC Immature Gran % Nucleated RBC % Sodium 125 L 125 L Potassium Chloride Carbon Dioxide Anion Gap BUN Creatinine Estim Creat Clear Calc eGFR BUN/Creatinine Ratio Glucose Calculated Osmolality Calcium Corrected Calcium Phosphorus Magnesium Total Bilirubin AST ALT Alkaline Phosphatase Total Protein Albumin Globulin Albumin/Globulin Ratio Triglycerides Cholesterol LDL Cholesterol, Calc HDL Cholesterol Cholesterol/HDL Ratio HIV 1&2 Antibody Rapid Non-Reactive 01/10/25 01/10/25 01/11/25 17:13 20:14 06:36 WBC 7.7 RBC 3.56 L Hgb 11.9 L Hct 32.9 L MCV 92 MCH 33.4 MCHC 36.2 RDW Std Deviation 43.5 Plt Count 239 D Neut % (Auto) 59 Lymph % (Auto) 24 [place] % (Auto) 9 Eos % (Auto) 7 Baso % (Auto) 1 Neut # (Auto) 4.5 Lymph # (Auto) 1.8 [place] # (Auto) 0.7 Eos # (Auto) 0.6 H Baso # (Auto) 0.0 Immature Gran # (Auto) 0.04 H Absolute Nucleated RBC 0.00 Immature Gran % 1 H Nucleated RBC % 0 Sodium 130 L 131 L 136 Potassium 4.3 D Chloride 104 Carbon Dioxide 21.8 Anion Gap 10 BUN 5 L Creatinine 1.0 Estim Creat Clear Calc 67.7 eGFR > 60 BUN/Creatinine Ratio 5 L Glucose 106 Calculated Osmolality 269 L Calcium 8.5 Corrected Calcium 9.0 Phosphorus 2.6 Magnesium 1.4 L Total Bilirubin 0.4 AST 13 ALT 10 Alkaline Phosphatase 43 L Total Protein 5.3 L Albumin 3.4 Globulin 1.9 L Albumin/Globulin Ratio 1.8 Triglycerides 65 Cholesterol 108 L LDL Cholesterol, Calc 50 HDL Cholesterol 45 Cholesterol/HDL Ratio 2.4 L HIV 1&2 Antibody Rapid ABG Interpretation ABG results: 01/07/25 05:22 VBG pH 7.49 VBG pCO2 27 L VBG pO2 124 H VBG Base Excess -1 Quality Measures Quality Measures VTE prophylaxis Assessment & Plan Assessment Current Active Medications: Generic Name Dose Route Start Last Admin Trade Name Freq PRN Reason Stop Dose Admin Acetaminophen 650 mg 01/07/25 09:49 Acetaminophen Supp 650 Mg Supp LA 02/06/25 09:48 Q6HR PRN [id number] Atorvastatin Calcium 20 mg 01/10/25 21:00 01/10/25 20:40 Atorvastatin Calcium 20 Mg Tablet PO 02/09/25 20:59 20 mg HS LEIGHA Administration Finasteride 5 mg 01/10/25 09:00 01/11/25 09:00 Finasteride 5 Mg Tablet PO 02/09/25 08:59 5 mg QDAY LEIGHA Administration Heparin Sodium (Porcine) 5,000 unit 01/07/25 10:00 01/07/25 10:16 Heparin Sod Inj 5000 Unit/Ml Vial SC 01/21/25 09:59 5,000 unit Q12HR LEIGHA Administration Ondansetron HCl 4 mg 01/07/25 09:46 01/08/25 20:28 Ondansetron Inj 2 Mg/Ml Inj 2 Ml IVP 02/06/25 09:45 4 mg Q6H PRN Administration NAUSEA OR VOMITING Protocol Pantoprazole Sodium 40 mg 01/07/25 21:00 01/11/25 08:59 Pantoprazole Inj 40 Mg Vial IVP 02/06/25 20:59 40 mg BID LEIGHA Administration Sodium Chloride 1 gm 01/11/25 12:00 Sodium Chloride 1 Gm Tablet PO 02/10/25 11:59 QID LEIGHA Tamsulosin HCl 0.4 mg 01/10/25 09:00 01/11/25 08:59 Tamsulosin Hcl 0.4 Mg Capsule PO 02/09/25 08:59 0.4 mg QDAY LEIGHA Administration Plan Juan M Jasso is a 64 year old male with past medical history, per chart review, of HTN, GERD, BPH, T2DM, depression presents with vomiting and confusion. Neprhology consulted for symptomatic hyponatremia. #symptomatic hypoosmolar hypochloremic hyponatremia, improving Likely pre-renal due to volume loss along with reported hx of strict low sodium diet. Per family member, worsening confusion last several days, vomiting beginning day prior to admission. Baseline is alert/oriented and ambulatory. Reported that he sees steward/stewardess banquet Dr. Driver who recommended decrease sodium and sugar intake which was followed strictly Patient presented with sodium 112, potassium 4, chloride 80, calculated osmolarity 226. Making good urine Previously gave desmopressin 2-4 mcg to prevent over correction; Free water 3 mg/kg/hr drops sodium 1 mEq/hr being another option. Sodium corrected to 131 today. Plan: -Stop Hypertonic saline 3% -Continue salt tablets BID -1 g Salt tablets outpatient BID for 2 weeks -Okay to restart lisinopril on discharge -Hold desmopressin for now. -Sodium Check q12 #Acute encephalopathy. #Nausea and vomiting, controlled. #Elevated total bilirubin. #Severe hypomagnesemia. #Concern for possible aspiration. #Leukocytosis. Above managed per primary team Patient plan of care was discussed with the attending physician, Dr. Iglesia Sanders MD PGY-1 Attending Provider Attestation/Addendum Patient seen and examined with resident physician Dr. Pelaez. Note reviewed, agree with findings and recommendations. Patient currently seen in ICU. Admitted with severe symptomatic hyponatremia needing 3% hypertonic saline. Suspect hypovolemic hyponatremia in appropriate response of ADH. After 3% hypertonic saline's urine output started to improve. Urine output 2.4 L. Gave 1 dose of desmopressin to prevent overcorrection. Goal is 6 mEq in the next 24 hours rise in serum sodium to avoid osmotic demyelination syndrome. 01/09/2025 patient currently seen in ICU. Cousin at bedside. Resting comfortably alert awake and oriented. Appropriate with answering all the questions. sodium still remains at 119. ICU team decided to give 3% hypertonic saline until serum sodium is 126 which seems to be appropriate. Hold off on desmopressin. spoke to ICU team. 01/11/2025 patient currently seen in telemetry. Resting comfortably. More alert and awake. Sodium 125. Added salt tablets. Patient can be discharged on salt tablets.
--- NOTE | 2025-01-11 11:15 | ESDS_ITS ---
Planned Discharge Date 01/11/25 DS: Providers Provider Date of admission: 01/07/25 04:55 Primary care physician: Physician No Primary/Family Admitting Provider: Danay Robles MD Attending Provider on Admission: Miguel Rae MD Consults: 01/07/25 05:25 Consult to Nephrology Stat Comment: severe symptomatic hyponatremia Consulting Provider: Mak Parekh 01/07/25 05:39 Referral Physical Therapy Routine Comment: Physician Instructions: 01/07/25 16:35 Consult to Gastroenterology Routine Comment: Coffee ground emesis. Consulting Provider: David Storey 01/10/25 11:25 [facility] Referral - Nutrition Routine Comment: Positive screening for nutrition needs. 01/11/25 07:14 Referral Physical Therapy Stat Comment: unsteady gait, possible dc home, might need DME Physician Instructions: Attending Provider on DC: Carlos Price MD Discharging Provider: Soheila Pelaez, RESIDENT DS: Diagnosis Problem List Completed Was Problem List Reviewed/Reconciled?: Yes Hospital Course Hospital Course Hospital course: Summary: Patient is a 64 year old male with a past medical history of diabetes mellitus type 2, non insulin dependent, Hypertension, smoking history, BPH w/ urinary obstruction on tamsulosin, and history of GERD who was admitted directly into the ICU with for severe symptomatic hyponatremia. ED Course: Vitals: BP 153/85, HR 79, RR 18, temperature 98.4 ?F, oxygen saturation 97% on room air Labs: WBC 13.5, sodium 112, potassium 4, chloride 80, creatinine 1.1 with unknown baseline, glucose 111, calculated osmolarity 226, lactic acid 1.4, magnesium 0.9, total bilirubin 1.8, troponin negative, lipase 30. Urinalysis showed glucose 4+, ketones 1+. Toxicology Is Negative. Imaging: Head CT showed periventricular chronic small vessel ischemia and volume loss, no mass effect or hemorrhage. EKG showed sinus rhythm. Chest x-ray negative for aspiration pneumonia. Treatment: given Zofran x 1 Reason for hospitalization: Patient is a 64 year old male with a past medical history of diabetes mellitus type 2, non insulin dependent, Hypertension, smoking history, BPH w/ urinary obstruction on tamsulosin, and history of GERD who was admitted directly into the ICU with for severe symptomatic hyponatremia (sodium 112). Nephrology Dr. Parekh was consulted, was treated with hypertonic saline at 30 cc/h. Patient had 2 episodes of coffee-ground emesis in ICU, GI Dr. Storey was consulted. EGD was done on 01/09 showed many linear esophageal ulcers on the lower third of esophagus, gastritis with erythema, erythematous duodenopathy. Recommended Protonix 40 mg IV every 12 hours and to avoid NSAIDs. No other episodes of hematemesis. Tested HIV negative. Blood cultures 01/07 grew Klebsiella ozaenae, started on IV Rocephin 2 g on 01/08. Will continue oral levofloxacin for another 10 days. Sodium improved with hypertonic saline. Patient was downgraded to telemetry on 01/10. On 01/11, sodium is finally within normal limits, 136. Per nephrology Dr. Parekh, recommend continuing salt tablets twice daily for 2 more weeks, continue to hold lisinopril as patient is normotensive. Resume all other home meds including atorvastatin. Recommend following up with PCP on starting iron supplementation for normocytic anemia. Continue Protonix twice daily. Discharge Recommendations: -Continue salt tablets 1 gram twice daily for the next two weeks -Continue antibiotics for 10 more days of antibiotics -Please follow up with Dr. Parekh, nephrology for your low salt levels -Please follow up with your primary care provider within one week of discharge -If your symptoms worsen,please seek immediate medical attention and return to your nearest emergency room -If you do not have a primary care provider, you may follow up at the [facility] at [address] [place] [address] [address], [place] [address], Hospital Diagnoses: #Hypovolemic, severe symptomatic hyponatremia, hypoosmolar?resolved #Mild hyponatremia?resolved #esophageal ulcers #Hematemesis?resolved #Upper GI bleed #Normocytic anemia #Leukocytosis?resolved #Type 2 diabetes, [id number] #Hyperlipidemia #Hypertension #BPH #Metabolic acidosis, none anion gap, resolved #Hyperbilirubinemia, resolved Disposition: Safe discharge to home Patient plan of care was discussed with the resident, Dr. Borja, and attending physician, Dr. Price . Soheila Pelaez, PGY-1 - The patient's plan was discussed with attending Dr. Dee Borja MD PGY2 Internal Medicine Time Spent with Patient Time attestation: Total time spent providing and/or coordinating discharge services: At least 30 minutes of care coordination Time spent: Greater than 30 minutes Exam Vital Signs Temp Pulse Resp BP Pulse Ox O2 Del Method O2 Flow Rate 97.0 F 65 18 127/69 99 Room Air 3 01/11/25 08:00 01/11/25 08:00 01/11/25 08:00 01/11/25 08:00 01/11/25 08:00 01/11/25 08:00 01/09/25 17:55 Narrative Exam Physical Exam General: Awake and in no acute distress. Conversational and non-toxic appearing. HEENT: Normocephalic, atraumatic, mucous membranes moist. Heart: Regular rate and rhythm, normal S1 and S2, no murmurs. Lungs: Clear to auscultation with no wheezing or crackles. Abdomen: Soft, nondistended, nontender, positive bowel sounds. No guarding or rebound tenderness. Neurologic: Alert and oriented x3, no gross neurological deficit, and patient able to move all 4 extremities. Extremities: No edema. Skin: No rash or ecchymoses. Discharge Plan Plan Patient Disposition: HOME (Self Care) Patient condition on transfer: Stable Care Plan Goals: Instructions: -Continue salt tablets 1 gram twice daily for the next two weeks -Continue antibiotics for 10 more days of antibiotics -Please follow up with Dr. Parekh, nephrology for your low salt levels -Please follow up with your primary care provider within one week of discharge -If your symptoms worsen,please seek immediate medical attention and return to your nearest emergency room -If you do not have a primary care provider, you [facility] [address], [place] [address], Prescriptions/Referrals Prescriptions/Med Rec: New pantoprazole 40 mg tablet,delayed release (DR/EC) 40 mg PO BID 30 Days Qty: 60 0RF sodium chloride 1,000 mg tablet,soluble 1,000 mg PO BID 14 Days Qty: 28 0RF levofloxacin 750 mg tablet 750 mg PO QDAY 10 Days Qty: 10 0RF Continued olanzapine 20 mg Tablet 20 mg PO QDAY docusate sodium 100 mg Tablet 100 mg PO QDAY finasteride 5 mg Tablet 5 mg PO QDAY atorvastatin 20 mg tablet 20 mg PO .QD Patient Comments: TAKE ONE TABLET BY MOUTH EVERY DAY FOR CHOLESTEROL dapagliflozin propanediol [Farxiga] 10 mg tablet 10 mg PO .QD Patient Comments: TAKE ONE TABLET BY MOUTH EVERY MORNING FOR DIABETES metformin 500 mg tablet 500 mg PO .COMPLEX Patient Comments: TAKE ONE TABLET BY MOUTH EVERY DAY WITH FOOD FOR DIABETES Rx Instructions: 500 mg orally; ferrous sulfate [FeroSul] 325 mg (65 mg iron) tablet 325 mg PO .QOD Patient Comments: TAKE ONE TABLET BY MOUTH EVERY DAY WITH ORANGE JUICE tamsulosin 0.4 mg capsule 0.4 mg PO Q24H Patient Comments: TAKE ONE CAPSULE BY MOUTH EVERY DAY 30 MINUTES BEFORE THE same meal oxybutynin chloride 2.5 mg tablet 2.5 mg PO BID Patient Comments: TAKE ONE TABLET BY MOUTH TWICE DAILY FOR OVERACTIVE BLADDER olanzapine 10 mg tablet 10 mg PO HS Patient Comments: TAKE ONE TABLET BY MOUTH AT BEDTIME Held lisinopril 20 mg tablet 20 mg PO .QD Hold Instructions: Resume on 01/22/25. Please continue to hold until your follow up with Dr. Parekh given low salt in your blood Patient Comments: TAKE ONE TABLET BY MOUTH EVERY DAY HIGH BLOOD PRESSURE Kerendia 10 mg tablet 10 mg PO .QOD Hold Instructions: Resume on 01/22/25. Please continue to hold until your follow up with Dr. Parekh Patient Comments: TAKE ONE TABLET BY MOUTH EVERY DAY Discontinued tamsulosin 0.4 mg capsule 0.4 mg PO QHS metformin 500 mg Tablet 500 mg PO QDAY omeprazole 20 mg Tablet,Delayed Release (Dr/Ec) 20 mg PO QDAY finasteride 5 mg tablet 5 mg PO .QOD Patient Comments: TAKE ONE TABLET BY MOUTH EVERY DAY FOR PROSTATE pantoprazole 40 mg tablet,delayed release (DR/EC) 40 mg PO QDAY Patient Comments: TAKE ONE TABLET BY MOUTH EVERY DAY HEARTBURN FOR GASTRITIS Referrals: No Primary/Family,Physician [Primary Care Provider] - Mak Parekh MD [Physician] - Outpatient Orders (i.e. Home Health, Labs, Imaging): Renal Function Panel (Routine) Location: None Selected Ordered By: Jennifer Borja Patient/Caregiver Discharge Instructions Education Materials: Controlling High Blood Pressure, Hyponatremia Dc Print Language: Greenlandic Stand Alone Forms: Leann Award Info., Patient Portal Info Letter Discharge Order Discharge Orders: Discharge (Routine); Ordered 07/28/25 Ordered By: Jennifer Borja Quality Discharge Quality Measures VTE prophylaxis MD Attestestation MD Attestation I have examined the patient, reviewed labs and imaging findings, discussed the case with the resident(s), and reviewed entered orders. I agree with the plan of care as outlined in this note. Time Spent: [address] Dee MD
[2025-01-11 11:48] VITALS: BP 114/64; PULSE 68; RESP 18; TEMP 36.1; O2SAT 98
[2025-01-11 12:00] VITALS: PULSE 97
[2025-01-11 12:57] LABS: Albumin, Serum 3.8 gm/dL (3.4-4.8); Anion Gap 10 (7-16); BUN/Creatinine Ratio 7 Ratio (12-20); Blood Urea Nitrogen 7 mg/dL (9-23); Calcium 8.8 mg/dL (8.3-10.6); Calcium (Corrected) 9.0 mg/dL (8.5-10.1); Carbon Dioxide 23.3 mMol/L (20.0-31.0); Chloride 103 mMol/L (98-107); Creatinine (Component) 1.0 mg/dL (0.6-1.3); Estimated Creatinine Clearance 67.7 mL/min (>60); Glucose 81 mg/dL (74-106); Osmolality,Calculated 268 (275-295); Phosphorous 2.4 mg/dL (2.4-5.1); Potassium 4.2 mMol/L (3.4-5.1); Sodium 136 mMol/L (136-145); eGFR > 60 See Note
--- NOTE | 2025-01-11 13:50 | PC.SS ---
Rounding: Pending labs, if stable DC plan home.
--- NOTE | 2025-01-11 15:36 | PC.PT ---
Patient remains xI. PT eval only. Patient is safe to ambulate in the halls and to the bathroom with 1 staff assist. RN made aware.
--- NOTE | 2025-01-12 10:18 | PC.SS ---
Late Entry: DME referral submitted per PT Reccs for a FWW via [facility], pending responses
== END 2025-01-11 13:40 | disposition home or self-care (01) | DRG 426 ==
LOC: SERX 05:08 → SERHOLD 05:17 → S2SX 07:41 → S3NX 01-10 14:38
PROVIDERS: Emergency Medicine; Physician Assistant; Specialist; Student in an Organized Health Care Education/Training Program; Admitting Provider Student in an Organized Health Care Education/Training Program; Emergency Provider Student in an Organized Health Care Education/Training Program; Visit Provider Internal Medicine Critical Care Medicine
PROC: 0DJ08ZZ Inspection of Upper Intestinal Tract, Via Natural or Artificial Opening Endoscopic (ICD-10-PCS; CPT 43239; principal; 2025-01-09 16:00)
DX: E87.1 Hypo-osmolality and hyponatremia (principal); Z79.84 Long term (current) use of oral hypoglycemic drugs; E83.42 Hypomagnesemia; D72.829 Elevated white blood cell count, unspecified; I10 Essential (primary) hypertension; F17.200 Nicotine dependence, unspecified, uncomplicated; D63.1 Anemia in chronic kidney disease; E11.22 Type 2 diabetes mellitus with diabetic chronic kidney disease; E22.2 Syndrome of inappropriate secretion of antidiuretic hormone; E78.5 Hyperlipidemia, unspecified; E86.1 Hypovolemia; E87.6 Hypokalemia; E87.8 Other disorders of electrolyte and fluid balance, not elsewhere classified; F03.90 Unspecified dementia, unspecified severity, without behavioral disturbance, psychotic disturbance, mood disturbance, and anxiety; G37.2 Central pontine myelinolysis; G93.41 Metabolic encephalopathy; I12.9 Hypertensive chronic kidney disease with stage 1 through stage 4 chronic kidney disease, or unspecified chronic kidney disease; K22.11 Ulcer of esophagus with bleeding; K31.89 Other diseases of stomach and duodenum; B96.1 Klebsiella pneumoniae [K. pneumoniae] as the cause of diseases classified elsewhere; B96.89 Other specified bacterial agents as the cause of diseases classified elsewhere; N18.9 Chronic kidney disease, unspecified; N40.1 Benign prostatic hyperplasia with lower urinary tract symptoms; Z79.899 Other long term (current) drug therapy
CPT/HCPCS: 36415; 70450; 71045; 71250; 74018; 76705; 80053; 80061; 80069; 80307; 80320; 81001; 82010; 82248; 82270; 82271; 82436; 82570; 82803; 83036; 83605; 83690; 83735; 83930; 83935; 84100; 84133; 84156; 84295; 84300; 84443; 84484; 84550; 85014; 85018; 85025; 86703; 87040; 87077; 87081; 87186; 93005; 93225; 96365; 96366; 96375; 97161; 97162; 99285; J0168; J0696; J1200; J1644; J2250; J2310; J2405; J2470; J2597; J3010; J3475; J3480; J3490; J7030; J7050; J7060; J7070; J7131; A9270; G0480; J1836